=== PATIENT | female | born 1965 | race American Indian/Alaskan Native ===

== ENCOUNTER 2016-11-19 15:41 | Emergency (ER) | payer MEDICARE ==
[2016-11-19 16:40] LABS: Basophils % (Auto) 1.1 % (0.0-1.8); Hematocrit 40.2 % (30.3-42.9); Hemoglobin 13.4 gm/dl (10.1-14.3); Mean Corpuscular HGB Conc 33 % (30-34); Mean Corpuscular Hemoglobin 27 pg (28-32); Mean Corpuscular Volume 81 fl (79-97); Platelet Count 367 K/mm3 (140-440); Red Blood Count 4.96 M/mm3 (3.65-5.03); Red Cell Distribution Width 15.5 % (13.2-15.2); White Blood Count 8.9 K/mm3 (4.5-11.0)
[2016-11-19 17:06] LABS: Alanine Aminotransferase 21 units/L (7-56); Albumin 4.4 g/dL (3.9-5); Albumin/Globulin Ratio 1.2 %; Alkaline Phosphatase 108 units/L (35-129); Anion Gap 16 mmol/L; BUN/Creatinine Ratio 12.22; Blood Urea Nitrogen 11 mg/dL (7-17); Calcium 10.2 mg/dL (8.4-10.2); Carbon Dioxide 29 mmol/L (22-30); Chloride 98.5 mmol/L (98-107); Glucose 79 mg/dL (65-100); Potassium 3.4 mmol/L (3.6-5.0); Sodium 140 mmol/L (137-145)
--- NOTE | 2016-11-19 21:36 | Emergency Department Report ---
HPI - General Chief Complaint: Neuro Symptoms/Deficit Time Seen by Provider: 11/19/16 21:17 - HPI HPI: This is a 51-year-old Afro-[place] female presents to the emergency department from home with complaint of some decreased sensation and/or numbness to some of the fingers on the right hand that began yesterday and has been going since. She also felt like she was having some trouble closing her hand at that time but her symptoms have improved. She does not have true numbness but says it is decreased sensation to the right thumb and index finger compared to the left hand. Patient has previous history of CVA in 2005 left her with right-sided deficits that have since resolved. She denies any headache, slurred speech, vision change or any other neurological deficits. She went to see her PCP who told her to come in to be seen for further evaluation. She has a past medical history of diabetes, hypertension, hyperlipidemia. 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 ED Past Medical Hx - Past Medical History Previous Medical History?: Yes Hx Hypertension: Yes Hx Diabetes: Yes Additional medical history: hyperlipidemia - Surgical History Past Surgical History?: Yes Additional Surgical History: hysterectomy, UFE x2 - Social History Smoking Status: Never Smoker Substance Use Type: None - Medications Home Medications: Home Medications Medication Instructions Recorded Confirmed Last Taken Type AtorvaSTATin [Lipitor] 40 mg PO DAILY 11/19/16 11/19/16 11/19/16 History Escitalopram [Lexapro] 10 mg PO DAILY 11/19/16 11/19/16 11/19/16 History Glipizide/Metformin HCl 1 each PO DAILY 11/19/16 11/19/16 11/19/16 History [glipiZIDE-Metformin 5-500 mg] Lisinopril [Zestril TAB] 40 mg PO DAILY 11/19/16 11/19/16 11/19/16 History Metoprolol [Lopressor TAB] 50 mg PO DAILY 11/19/16 11/19/16 11/19/16 History NIFEdipine XL [Procardia Xl] 30 mg PO QDAY 11/19/16 11/19/16 11/19/16 History Valsartan/Hydrochlorothiazide 1 each PO DAILY 0511/19/16 11/19/16 History [Valsartan-Hctz 160-12.5 mg Tab] traZODone [Desyrel] 100 mg PO 4XD 11/19/16 11/19/16 11/19/16 History ED Review of Systems ROS: Stated complaint: POSS STROKE/SENT BY DOC Other details as noted in HPI Comment: All other systems reviewed and negative Constitutional: denies: chills, fever Eyes: denies: eye pain, eye discharge, vision change ENT: denies: ear pain, throat pain Respiratory: denies: cough, shortness of breath, wheezing Cardiovascular: denies: chest pain, palpitations Gastrointestinal: denies: abdominal pain, nausea, diarrhea Genitourinary: denies: urgency, dysuria, discharge Musculoskeletal: denies: back pain, joint swelling, arthralgia Neurological: numbness, paresthesias. denies: headache Physical Exam - Physical Exam Vital Signs: Vital Signs 11/19/16 15:52 Temperature 98.3 F Pulse Rate 55 L Respiratory 18 Rate Blood Pressure 138/94 O2 Sat by Pulse 100 Oximetry Physical Exam: GENERAL: The patient is well-developed well-nourished. HEENT: Normocephalic. Atraumatic. Extraocular motions are intact. Patient has moist mucous membranes. Pupils equal reactive to light bilaterally. NECK: Supple. Trachea is midline. CHEST/LUNGS: Clear to auscultation. There is no respiratory distress noted. HEART/CARDIOVASCULAR: Regular. There is no tachycardia. There is no gallop rub or murmur. ABDOMEN: Abdomen is soft, nontender. Patient has normal bowel sounds. There is no abdominal distention. SKIN: Skin is warm and dry. NEURO: The patient is awake, alert, and oriented. The patient is cooperative. The patient has no focal neurologic deficits. The patient has normal speech. Cranial nerves 2 through 12 grossly intact. No pronator drift. No dysmetria. MUSCULOSKELETAL: There is no tenderness or deformity. There is no limitation range of motion. There is no evidence of acute injury. Muscle strength 5 out of 5 upper and lower extremities including aws solution architect strength bilaterally. Radial pulses +2 over 4 bilaterally. Cap refill less than 2 seconds. ED Course Vital Signs 11/19/16 15:52 Temperature 98.3 F Pulse Rate 55 L Respiratory 18 Rate Blood Pressure 138/94 O2 Sat by Pulse 100 Oximetry ED Medical Decision Making - Lab Data Result diagrams: 11/19/16 16:28 11/19/16 16:28 - EKG Data -: EKG Interpreted by Me EKG shows normal: sinus rhythm, axis (right axis deviation), intervals, QRS complexes, ST-T waves (T-wave inversions to the lateral leads) Rate: normal - EKG Data When compared to previous EKG there are: previous EKG unavailable Interpretation: other (sinus bradycardia at 54 bpm, right axis deviation, T- wave inversions to the lateral leads) - Radiology Data Radiology results: report reviewed CT of the head without contrast shows probable old left frontal and left parietal strokes. No definite signs of acute disease. - Medical Decision Making This is a 51-year-old female who presents emergency Department with complaint of a 24-hour plus history of some right hand weakness and some decreased sensation to the thumb and index finger of that right hand as well. Patient says she is feeling improved from yesterday. On physical exam the patient denies any difference in sensation between the right and left hands. She has muscle strength 5 out of 5 for upper and lower extremities and this includes her aws solution architect strength. There is no obvious focal, motor or sensory deficits. Patient is a current 0 on the NIH stroke scale. If you include her previous subjective decreased sensation to some of the fingers on the right hand she might be considered a 1 at that time but she says that is improved. CT of the head showed probable old left frontal and left parietal strokes but no acute intracranial process. Her labs are unremarkable and do not show any etiology of the patient's symptoms. Vital signs stable throughout her ED course. However with the patient's history of diabetes, previous stroke, and the fact that she says that there is improvement but still something "weird" about her hand, I suggested the patient be admitted for further evaluation, MRI and possible neurology consultation. However the patient does not want to stay in the hospital at this time. She understands that this could all be signs of a TIA and if so she would be more prone to future stroke. Despite that risk, patient does not want admission. She will be discharged home to follow-up with neurology and will return immediately with any worsening of her symptoms or any acute distress. - Differential Diagnosis TIA, CVA, radiculopathy Critical Care Time: No Critical care attestation.: If time is entered above; I have spent that time in minutes in the direct care of this critically ill patient, excluding procedure time. ED Disposition Clinical Impression: Right hand weakness Disposition: DISCHARGED TO HOME OR SELFCARE Is pt being admited?: No Condition: Stable Instructions: Weakness (ED) Additional Instructions: Please follow-up with your primary care doctor as soon as possible. I referral for some local neurologists for follow-up. Return to the emergency department immediately with any slurred speech, increased numbness, increased weakness or any further strokelike signs or any acute distress. Return to the emergency department immediately if you change your mind about admission for further evaluation. Referrals: PRIMARY CARE, [Primary Care Provider] - HALEY SHARP MD [Staff Physician] - ALEX BERNARD MD [Staff Physician] - [facility] Time of Disposition: 23:21
--- NOTE | 2016-11-19 23:10 | Cat Scan Report ---
FINAL REPORT PROCEDURE: CT head without contrast. TECHNIQUE: Computerized tomography of the head was performed without contrast material. HISTORY: Right hand numbness, concern for cerebral vascular accident. COMPARISON: No prior studies are available for comparison. FINDINGS: The ventricles are normal in size. There are fairly large areas of encephalomalacia involving the left frontal lobe and the left parietal lobe. These areas likely represent previous strokes. The right cerebral hemisphere appears normal. There are no mass lesions. There is no intracranial hemorrhage. There are no signs of acute infarction. An MRI scan with diffusion-weighted imaging is the most sensitive means of detecting an early stroke. The calvarium appears intact. The mastoid air cells and paranasal sinuses are clear as far as visualized. IMPRESSION: Probable old left frontal and left parietal strokes. No definite signs of acute disease.
[2016-11-19] MEDS ORDERED: BABY ASPIRIN PO ONE ×2 (23:11→23:20)
[2016-11-19 23:22] VITALS: BP 144/76
== END 2016-11-19 23:33 | disposition home or self-care (01) ==
LOC: ED 15:41
DX: M62.81 Muscle weakness (generalized) (principal); I10 Essential (primary) hypertension; E11.9 Type 2 diabetes mellitus without complications; E78.00 Pure hypercholesterolemia, unspecified
CPT/HCPCS: 36415; 70450; 80053; 84443; 84484; 85025; 93005; 93010; 99284

== ENCOUNTER 2016-12-11 15:09 | Outpatient (CLI) | payer MEDICARE | END 2016-12-11 15:10 | disposition home or self-care (01) | LOC: MRI 15:09 | PROVIDERS: ATTEND Specialist | DX: I63.30 Cerebral infarction due to thrombosis of unspecified cerebral artery (principal) | CPT/HCPCS: 70544; 70547; 70551 ==

== ENCOUNTER 2019-06-14 20:48 | Inpatient (IN) | payer BC, MEDICARE ==
--- NOTE | 2019-06-14 20:52 | Emergency Department Report ---
ED Neuro Deficit HPI - General Chief Complaint: Neuro Symptoms/Deficit Stated Complaint: POSS CVA Time Seen by Provider: 06/14/19 20:50 Source: patient, family, EMS (verbal report received from emergency medical services. EMS documentation not available at time of chart dictation ), RN notes reviewed, old records reviewed Mode of arrival: Stretcher Limitations: Physical Limitation - History of Present Illness Initial Comments: Primary care Dr.: Dr. Gregg This is a 53-year-old female. The patient has a history of MRI confirmed stroke, diabetes, high cholesterol, in 2017, found to have 50% left-sided carotid stenosis. She is brought to the hospital by emergency medical services as a possible code stroke. They report normal Accu-Chek in the field. The patient has a complaint of painless right arm weakness, slurred speech and facial droop. The patient is not sure what time her symptoms started. Sister's at the bedside, and she is not sure what time the patient's symptoms started. At first they thought her symptoms started at 7:30 PM, then they backtrack and thought that they may have started at 6:30 PM, and then backtracked further and felt that her last known well time was at 2:00 PM. However, neither the patient or her sister are absolutely sure of her last known well time. The patient denies physical pain. In the emergency room, she was found to have an Accu-Chek of 67. She was given dextrose and this improved her symptoms. -: hour(s) Location: right face, dysarthria, right arm Presenting Symptoms: Present: Weak/Paralyzed One Side, Unable to Speak Clearly History of same: Yes Place: home Severity: moderate Quality: improving Improves With: none Worsens With: none On Anticoagulants: Yes Context: other - Related Data Home Medications: Home Medications Medication Instructions Recorded Confirmed Last Taken AtorvaSTATin [Lipitor] 40 mg PO DAILY 11/19/16 06/15/19 1 Day Ago ~06/14/19 Escitalopram [Lexapro] 10 mg PO DAILY 11/19/16 06/15/19 1 Day Ago ~06/14/19 Glipizide/Metformin HCl 2 tab PO BID 11/19/16 06/15/19 1 Day Ago [glipiZIDE-Metformin 5-500 mg] ~06/14/19 Metoprolol [Lopressor TAB] 50 mg PO DAILY 11/19/16 06/15/19 1 Day Ago ~06/14/19 NIFEdipine XL [Procardia Xl] 30 mg PO QDAY 11/19/16 06/15/19 1 Day Ago ~06/14/19 traZODone [Desyrel] 100 mg PO 4XD 11/19/16 06/15/19 11/19/16 Hydrochlorothiazide 12.5 mg PO DAILY 06/14/19 06/15/19 1 Day Ago ~06/14/19 Allergies/Adverse Reactions: Allergies Allergy/AdvReac Type Severity Reaction Status Date / Time No Known Allergies Allergy Verified 06/14/19 21:33 ED Review of Systems ROS: Stated complaint: POSS CVA Other details as noted in HPI Constitutional: see HPI Eyes: as per HPI ENT: as per HPI Respiratory: see HPI Cardiovascular: as per HPI Endocrine: see HPI Genitourinary: as per HPI Musculoskeletal: as per HPI Skin: as per HPI Neurological: as per HPI Psychiatric: as per HPI Hematological/Lymphatic: as per HPI ED Past Medical Hx - Past Medical History Hx Hypertension: Yes Hx Diabetes: Yes Additional medical history: hyperlipidemia - Surgical History Additional Surgical History: hysterectomy, UFE x2 - Social History Smoking Status: Never Smoker Substance Use Type: None - Medications Home Medications: Home Medications Medication Instructions Recorded Confirmed Last Taken Type AtorvaSTATin [Lipitor] 40 mg PO DAILY 11/19/16 06/15/19 1 Day Ago History ~06/14/19 Escitalopram [Lexapro] 10 mg PO DAILY 11/19/16 06/15/19 1 Day Ago History ~06/14/19 Glipizide/Metformin HCl 2 tab PO BID 11/19/16 06/15/19 1 Day Ago History [glipiZIDE-Metformin 5-500 mg] ~06/14/19 Metoprolol [Lopressor TAB] 50 mg PO DAILY 11/19/16 06/15/19 1 Day Ago History ~06/14/19 NIFEdipine XL [Procardia Xl] 30 mg PO QDAY 11/19/16 06/15/19 1 Day Ago History ~06/14/19 traZODone [Desyrel] 100 mg PO 4XD 11/19/16 06/15/19 11/19/16 History Hydrochlorothiazide 12.5 mg PO DAILY 06/14/19 06/15/19 1 Day Ago History ~06/14/19 ED Neuro Physical Exam - General Limitations: Physical Limitation General appearance: alert, anxious Suspected Stroke: Yes - Head Head exam: Present: atraumatic, normocephalic - Eye Eye exam: Present: normal appearance, EOMI. Absent: nystagmus - ENT ENT exam: Present: normal exam, normal orophraynx, mucous membranes moist, normal external ear exam, other (there is initially a right-sided facial droop) - Neck Neck exam: Present: normal inspection, full ROM. Absent: tenderness, meningismus - Respiratory Respiratory exam: Present: normal lung sounds bilaterally. Absent: respiratory distress - Cardiovascular Cardiovascular Exam: Present: regular rate, normal rhythm, normal heart sounds. Absent: bradycardia, tachycardia, irregular rhythm, systolic murmur, diastolic murmur, rubs, gallop - GI/Abdominal GI/Abdominal exam: Present: soft. Absent: distended, tenderness, guarding, rebound, rigid, pulsatile mass - Extremities Exam Extremities exam: Present: normal inspection, full ROM, other (2+ pulses noted in the bilateral upper, lower extremities. There is no long bone tenderness. Musculoskeletal compartments are soft. The pelvis is stable.). Absent: calf tenderness - Back Exam Back exam: Present: normal inspection, full ROM. Absent: tenderness, CVA tenderness (R), paraspinal tenderness, vertebral tenderness - Neurological Exam Neurological exam: Present: alert, oriented X3, motor sensory deficit, other (there is right-sided facial droop. There is 4 out of 5 strength right upper extremity) - NIHSS Assessment Interval: Baseline 1a. Level of Consciousness: alert/keenly responsive 1b. LOC Questions: answers both correctly 1c. LOC Commands: performs tasks correctly 2. Best Gaze: normal 3. Visual: no visual loss 4. Facial Palsy: partial paralysis 5b. Motor Arm Right: some gravity effort 5a. Motor Arm Left: no drift 6a. Motor Leg Left: no drift 6b. Motor Leg Right: no drift 7. Limb Ataxia: absent 8. Sensory: normal 9. Best Language: no aphasia 10. Dysarthria: normal 11. Extinction/Inattention: no abnormality Total Score: 4 Stroke Severity: Minor Stroke - Psychiatric Psychiatric exam: Present: anxious - Skin Skin exam: Present: warm, dry, intact, normal color. Absent: rash ED Course Vital Signs 06/14/19 06/14/19 06/14/19 20:50 21:29 21:30 Temperature 98.7 F Pulse Rate 68 59 L Pulse Rate [ From Monitor] Pulse Rate [ Left Radial] Pulse Rate [ Right Radial] Respiratory 15 13 13 Rate Blood Pressure 173/88 Blood Pressure 173/88 161/96 [Right] O2 Sat by Pulse 99 99 99 Oximetry 06/14/19 06/14/19 06/14/19 21:50 22:00 23:57 Temperature Pulse Rate 58 L 60 69 Pulse Rate [ From Monitor] Pulse Rate [ Left Radial] Pulse Rate [ Right Radial] Respiratory 13 20 Rate Blood Pressure Blood Pressure 148/97 166/113 [Right] O2 Sat by Pulse 100 100 Oximetry 06/15/19 06/15/19 00:20 00:41 Temperature Pulse Rate 62 Pulse Rate [ 66 From Monitor] Pulse Rate [ 62 Left Radial] Pulse Rate [ 62 Right Radial] Respiratory 13 18 Rate Blood Pressure Blood Pressure 154/98 [Right] O2 Sat by Pulse 100 97 Oximetry - Reevaluation(s) Reevaluation #1: 06/14/19 22:25 Differential diagnosis, including not limited to: Conversion disorder, stroke, TIA, seizure, urinary tract infection, hypoglycemia Assessment and plan: 53-year-old female with rapidly improving neurologic deficits, with an unclear last known well time. Furthermore, the patient endorses that she consumed alcohol earlier on today, and was found to have hypoglycemia with an Accu-Chek of 67 initially. After treatment with dextrose, her neurologic symptoms improved. Current NIH score is less than 2. She is not a TPA candidate as her last known well time is not explicitly known. In additi on, we had an extensive discussion with the patient and her family member, describing risks, benefits and alternatives to TPA. Both patient and her family member do not want to have tPA. They are amenable to CT angiogram and admission. Patient found to be hypokalemic, hypomagnesemic. Both of these will be repleted and addressed. Reevaluation #2: 06/14/19 23:52 cta head negative for acute disease or large vessel occlusion, cta neck negative Dr [facility]ers [facility] physician to admit - Lab Data Result diagrams: 06/14/19 21:11 06/14/19 21:11 Lab Results 11/27/19 11/27/19 11/27/19 Range/Units 20:50 20:50 21:10 WBC (4.5-11.0) K/mm3 RBC (3.65-5.03) M/mm3 Hgb (10.1-14.3) gm/dl Hct (30.3-42.9) % MCV (79-97) fl MCH (28-32) pg MCHC (30-34) % RDW (13.2-15.2) % Plt Count (140-440) K/mm3 Lymph % (Auto) (13.4-35.0) % Blount % (Auto) (0.0-7.3) % Eos % (Auto) (0.0-4.3) % Baso % (Auto) (0.0-1.8) % Lymph # (1.2-5.4) K/mm3 Blount # (0.0-0.8) K/mm3 Eos # (0.0-0.4) K/mm3 Baso # (0.0-0.1) K/mm3 Seg Neutrophils % (40.0-70.0) % Seg Neutrophils # (1.8-7.7) K/mm3 PT (12.2-14.9) Sec. INR (0.87-1.13) APTT (24.2-36.6) Sec. Thrombin Time (15.1-19.6) Sec. Sodium (137-145) mmol/L Potassium (3.6-5.0) mmol/L Chloride (98-107) mmol/L Carbon Dioxide (22-30) mmol/L Anion Gap mmol/L BUN (7-17) mg/dL Creatinine (0.7-1.2) mg/dL Estimated GFR ml/min BUN/Creatinine Ratio % Glucose (65-100) mg/dL POC Glucose 67 L (70-105) Calcium (8.4-10.2) mg/dL Magnesium (1.7-2.3) mg/dL Total Creatine Kinase (30-135) units/L Troponin T (0.00-0.029) ng/mL Urine Color Colorless (Yellow) Urine Turbidity Clear (Clear) Urine pH 7.0 (5.0-7.0) Ur Specific [place] 1.006 (1.003-1.030) Urine Protein <15 mg/dl (Negative) mg/dL Urine Glucose (UA) 150 (Negative) mg/dL Urine Ketones Neg (Negative) mg/dL Urine Blood Mod (Negative) Urine Nitrite Neg (Negative) Urine Bilirubin Neg (Negative) Urine Urobilinogen < 2.0 (<2.0) mg/dL Ur Leukocyte Esterase Neg (Negative) Urine WBC (Auto) 4.0 (0.0-6.0) /HPF Urine RBC (Auto) 7.0 (0.0-6.0) /HPF Urine Bacteria (Auto) 1+ (Negative) /HPF Salicylates (2.8-20.0) mg/dL Urine Opiates Screen Presumptive negative Urine Methadone Screen Presumptive negative Acetaminophen (10.0-30.0) ug/mL Ur Barbiturates Screen Presumptive negative Ur Phencyclidine Scrn Presumptive negative Ur Amphetamines Screen Presumptive negative U Benzodiazepines Scrn Presumptive negative Urine Cocaine Screen Presumptive negative U Marijuana (THC) Screen Presumptive positive Drugs of Abuse Note Disclamer Plasma/Serum Alcohol (0-0.07) % 06/14/19 06/14/19 06/14/19 Range/Units 21:11 21:11 21:11 WBC 12.0 H (4.5-11.0) K/mm3 RBC 4.28 (3.65-5.03) M/mm3 Hgb 11.9 (10.1-14.3) gm/dl Hct 35.9 (30.3-42.9) % MCV 84 (79-97) fl MCH 28 (28-32) pg MCHC 33 (30-34) % RDW 13.8 (13.2-15.2) % Plt Count 320 (140-440) K/mm3 Lymph % (Auto) 29.3 (13.4-35.0) % Blount % (Auto) 6.2 (0.0-7.3) % Eos % (Auto) 1.4 (0.0-4.3) % Baso % (Auto) 1.2 (0.0-1.8) % Lymph # 3.5 (1.2-5.4) K/mm3 Blount # 0.7 (0.0-0.8) K/mm3 Eos # 0.2 (0.0-0.4) K/mm3 Baso # 0.1 (0.0-0.1) K/mm3 Seg Neutrophils % 61.9 (40.0-70.0) % Seg Neutrophils # 7.4 (1.8-7.7) K/mm3 PT 13.0 (12.2-14.9) Sec. INR 0.99 (0.87-1.13) APTT 29.1 (24.2-36.6) Sec. Thrombin Time (15.1-19.6) Sec. Sodium 140 (137-145) mmol/L Potassium 3.0 L (3.6-5.0) mmol/L Chloride 99.2 (98-107) mmol/L Carbon Dioxide 24 (22-30) mmol/L Anion Gap 20 mmol/L BUN 17 (7-17) mg/dL Creatinine 0.9 (0.7-1.2) mg/dL Estimated GFR > 60 ml/min BUN/Creatinine Ratio 19 % Glucose 232 H (65-100) mg/dL POC Glucose (70-105) Calcium 9.6 (8.4-10.2) mg/dL Magnesium (1.7-2.3) mg/dL Total Creatine Kinase (30-135) units/L Troponin T < 0.010 (0.00-0.029) ng/mL Urine Color (Yellow) Urine Turbidity (Clear) Urine pH (5.0-7.0) Ur Specific [place] (1.003-1.030) Urine Protein (Negative) mg/dL Urine Glucose (UA) (Negative) mg/dL Urine Ketones (Negative) mg/dL Urine Blood (Negative) Urine Nitrite (Negative) Urine Bilirubin (Negative) Urine Urobilinogen (<2.0) mg/dL Ur Leukocyte Esterase (Negative) Urine WBC (Auto) (0.0-6.0) /HPF Urine RBC (Auto) (0.0-6.0) /HPF Urine Bacteria (Auto) (Negative) /HPF Salicylates (2.8-20.0) mg/dL Urine Opiates Screen Urine Methadone Screen Acetaminophen (10.0-30.0) ug/mL Ur Barbiturates Screen Ur Phencyclidine Scrn Ur Amphetamines Screen U Benzodiazepines Scrn Urine Cocaine Screen U Marijuana (THC) Screen Drugs of Abuse Note Plasma/Serum Alcohol (0-0.07) % 06/14/19 06/14/19 06/14/19 Range/Units 21:11 21:11 21:45 WBC (4.5-11.0) K/mm3 RBC (3.65-5.03) M/mm3 Hgb (10.1-14.3) gm/dl Hct (30.3-42.9) % MCV (79-97) fl MCH (28-32) pg MCHC (30-34) % RDW (13.2-15.2) % Plt Count (140-440) K/mm3 Lymph % (Auto) (13.4-35.0) % Blount % (Auto) (0.0-7.3) % Eos % (Auto) (0.0-4.3) % Baso % (Auto) (0.0-1.8) % Lymph # (1.2-5.4) K/mm3 Blount # (0.0-0.8) K/mm3 Eos # (0.0-0.4) K/mm3 Baso # (0.0-0.1) K/mm3 Seg Neutrophils % (40.0-70.0) % Seg Neutrophils # (1.8-7.7) K/mm3 PT (12.2-14.9) Sec. INR (0.87-1.13) APTT (24.2-36.6) Sec. Thrombin Time 16.2 (15.1-19.6) Sec. Sodium (137-145) mmol/L Potassium (3.6-5.0) mmol/L Chloride (98-107) mmol/L Carbon Dioxide (22-30) mmol/L Anion Gap mmol/L BUN (7-17) mg/dL Creatinine (0.7-1.2) mg/dL Estimated GFR ml/min BUN/Creatinine Ratio % Glucose (65-100) mg/dL POC Glucose (70-105) Calcium (8.4-10.2) mg/dL Magnesium 1.60 L (1.7-2.3) mg/dL Total Creatine Kinase 188 H (30-135) units/L Troponin T (0.00-0.029) ng/mL Urine Color (Yellow) Urine Turbidity (Clear) Urine pH (5.0-7.0) Ur Specific [place] (1.003-1.030) Urine Protein (Negative) mg/dL Urine Glucose (UA) (Negative) mg/dL Urine Ketones (Negative) mg/dL Urine Blood (Negative) Urine Nitrite (Negative) Urine Bilirubin (Negative) Urine Urobilinogen (<2.0) mg/dL Ur Leukocyte Esterase (Negative) Urine WBC (Auto) (0.0-6.0) /HPF Urine RBC (Auto) (0.0-6.0) /HPF Urine Bacteria (Auto) (Negative) /HPF Salicylates 2.0 L (2.8-20.0) mg/dL Urine Opiates Screen Urine Methadone Screen Acetaminophen (10.0-30.0) ug/mL Ur Barbiturates Screen Ur Phencyclidine Scrn Ur Amphetamines Screen U Benzodiazepines Scrn Urine Cocaine Screen U Marijuana (THC) Screen Drugs of Abuse Note Plasma/Serum Alcohol (0-0.07) % 06/14/19 06/14/19 06/14/19 Range/Units 21:45 21:45 22:03 WBC (4.5-11.0) K/mm3 RBC (3.65-5.03) M/mm3 Hgb (10.1-14.3) gm/dl Hct (30.3-42.9) % MCV (79-97) fl MCH (28-32) pg MCHC (30-34) % RDW (13.2-15.2) % Plt Count (140-440) K/mm3 Lymph % (Auto) (13.4-35.0) % Blount % (Auto) (0.0-7.3) % Eos % (Auto) (0.0-4.3) % Baso % (Auto) (0.0-1.8) % Lymph # (1.2-5.4) K/mm3 [place]ount # (0.0-0.8) K/mm3 Eos # (0.0-0.4) K/mm3 Baso # (0.0-0.1) K/mm3 Seg Neutrophils % (40.0-70.0) % Seg Neutrophils # (1.8-7.7) K/mm3 PT (12.2-14.9) Sec. INR (0.87-1.13) APTT (24.2-36.6) Sec. Thrombin Time (15.1-19.6) Sec. Sodium (137-145) mmol/L Potassium (3.6-5.0) mmol/L Chloride (98-107) mmol/L Carbon Dioxide (22-30) mmol/L Anion Gap mmol/L BUN (7-17) mg/dL Creatinine (0.7-1.2) mg/dL Estimated GFR ml/min BUN/Creatinine Ratio % Glucose (65-100) mg/dL POC Glucose 101 (70-105) Calcium (8.4-10.2) mg/dL Magnesium (1.7-2.3) mg/dL Total Creatine Kinase (30-135) units/L Troponin T (0.00-0.029) ng/mL Urine Color (Yellow) Urine Turbidity (Clear) Urine pH (5.0-7.0) Ur Specific [place] (1.003-1.030) Urine Protein (Negative) mg/dL Urine Glucose (UA) (Negative) mg/dL Urine Ketones (Negative) mg/dL Urine Blood (Negative) Urine Nitrite (Negative) Urine Bilirubin (Negative) Urine Urobilinogen (<2.0) mg/dL Ur Leukocyte Esterase (Negative) Urine WBC (Auto) (0.0-6.0) /HPF Urine RBC (Auto) (0.0-6.0) /HPF Urine Bacteria (Auto) (Negative) /HPF Salicylates (2.8-20.0) mg/dL Urine Opiates Screen Urine Methadone Screen Acetaminophen < 5.0 L (10.0-30.0) ug/mL Ur Barbiturates Screen Ur Phencyclidine Scrn Ur Amphetamines Screen U Benzodiazepines Scrn Urine Cocaine Screen U Marijuana (THC) Screen Drugs of Abuse Note Plasma/Serum Alcohol < 0.01 (0-0.07) % - EKG Data -: EKG Interpreted by Nm EKG shows normal: sinus rhythm Rate: normal 06/14/19 22:24 The EKG shows a sinus bradycardia, there is a borderline rightward axis deviation, there is motion artifact, nonspecific T-wave abnormality, there is no endorsement of chest pain, the EKG is abnormal, it is not consistent with STEMI. It appears to be unchanged from prior EKG October 2016. Q waves noted in lead 3. Nonspecific T-wave abnormalities noted. - Radiology Data Radiology results: report reviewed, image reviewed Noncontrast CT scan of the brain is negative for acute findings. Chronic findings noted. No bleeding is noted. Print Report Referring Physician: GRAZYNA AMADOR Patient Name: BEBA MARTE Date of : 1965 Sex: Female Report Date: 2019-06-14 Report Status: Finalized Findings [facility] [address] [place] [address] Cat Scan Report Signed Patient: BEBA MARTE MR#: [id number] : 1965 Acct:[id number] Age/Sex: 53 / F ADM Date: 06/14/19 Loc: ED Attending Dr: Ordering Physician: GRAZYNA AMADOR MD Date of Service: 06/14/19 Procedure(s): CT head/brain wo con Accession Number(s): [id number] cc: GRAZYNA AMADOR MD CT head/brain wo con INDICATION / CLINICAL INFORMATION: 53 years Female; neuro deficits <6hrs or sx present upon awakening. TECHNIQUE: Routine CT head without contrast. All CT scans at this location are performed using CT dose reduction for ALARA by means of automated exposure control. COMPARISON: 11/19/2016 FINDINGS: BRAIN / INTRACRANIAL CONTENTS: Old, large MCA territorial infarct seen on the left which does not appear to be significantly changed from prior exam. It might be difficult to evaluate for small, luh-infarct areas of ischemia without diffusion imaging by MRI. Otherwise, no acute hemorrhage, mass effect, midline shift, hydrocephalus, or acute, large territorial infarct. Mild cerebral atrophy. There are mild areas of decreased attenuation in the white matter of the cerebral hemispheres. These are nonspecific findings and may be related to microangiopathy (hypertension, diabetes, atherosclerosis), given the patient's age. It might be difficult to evaluate for small areas of ischemia without diffusion imaging by MRI. CRANIOCERVICAL JUNCTION: No significant abnormality. ORBITS: No significant abnormality of visualized orbits. SINUSES / MASTOIDS: No significant abnormality the visualized paranasal sinuses or mastoid air cells. ADDITIONAL FINDINGS: Prominent soft tissues seen in the roof the nasopharynx, presumably related to reactive adenoidal tissue. No significant atherosclerotic disease appreciated. IMPRESSION: 1. No focal mass, hemorrhage, hydrocephalus, or acute, large territorial infarct. 2. Old left MCA territorial infarct is described above with no significant appreciable change from prior. Diffusion imaging may be helpful in evaluating for small, luh-infarct areas of ischemia, if clinically warranted. This exam was performed as part of a code stroke protocol. The exam was completed on 06/14/2019 8:05 PM. The exam was reviewed at 8:[address] Amador was notified at 8:22 PM. Signer Name: Montrell Peterson MD, III Signed: 06/14/2019 9:21 PM Workstation Name: [id number] Transcribed By: HR Dictated By: Montrell Peterson MD Electronically Authenticated By: Montrell Peterson MD Signed Date/Time: 06/14/192120 CT angio head INDICATION / CLINICAL INFORMATION: 53 years Female; cva known occlusion. TECHNIQUE: Thin cut axial images obtained through the head during IV bolus contrast administration. Sagittal, coronal, and 3 plane MIP reconstructions performed by the technologist. NASCET type criteria used evaluate stenoses. Automated exposure control utilized for radiation reduction purposes. COMPARISON: Prior MRA - 12/11/2016 FINDINGS: INTERNAL CAROTID ARTERIES: No significant narrowing appreciated. VERTEBROBASILAR SYSTEM: No significant narrowing appreciated. DISTAL BRANCHES: Distal branches of the anterior, middle, and posterior cerebral arteries are fairly symmetric in appearance and number. However, there are some branches in the left MCA territory which are not well visualized, consistent with patient's history of old, fairly large branch MCA infarct. 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 The right P1 segment is also mildly hypoplastic, when compared with the left. ANEURYSM: None identified. ADDITIONAL FINDINGS: Remainder of the surrounding soft tissues are grossly normal. IMPRESSION: No large branch occlusion appreciated. Signer Name: Montrell Peterson MD, III Signed: 06/14/2019 10:33 PM Workstation Name: [id number] - Core Measures Measure Exclusions: not indicated - Thrombolytic Inclusion/Exclusion Thrombolytic Exclusion Criteria: Onset of Symptoms Unknown Thrombolytic Contraindications: Rapidily Improving s/s Critical care attestation.: If time is entered above; I have spent that time in minutes in the direct care of this critically ill patient, excluding procedure time. ED Disposition Clinical Impression: Hypoglycemia, Hypokalemia, Hypomagnesemia Stroke (cerebrum) Qualifiers: CVA mechanism: unspecified Qualified Code(s): I63.9 - Cerebral infarction, unspecified Disposition: DC-09 OP ADMIT IP TO THIS HOSP Is pt being admited?: Yes Does the pt Need Aspirin: Yes Condition: Stable - Assessment Assessment Interval: Baseline - Level of Consciousness 1a. Level of Consciousness: alert/keenly responsive - LOC Questions 1b. LOC Questions: answers both correctly - LOC Command 1c. LOC Commands: performs tasks correctly - Best Gaze 2. Best Gaze: normal - Visual 3. Visual: no visual loss - Facial Palsy 4. Facial Palsy: minor paralysis - Motor Arm 5a. Motor Arm Left: no drift 5b. Motor Arm Right: drift - Motor Leg 6a. Motor Leg Left: no drift 6b. Motor Leg Right: no drift - Limb Ataxia 7. Limb Ataxia: absent - Sensory 8. Sensory: normal - Best Language 9. Best Language: no aphasia - Dysarthria 10. Dysarthria: normal - Extinction and Inattention 11. Extinction/Inattention: no abnormality - Scoring Total Score: 2 Stroke Severity: Minor Stroke
[2019-06-14] MEDS ORDERED: DEXTROSE 50% IN WATER (25GM) 50 ML SYRINGE IV PRN (21:02)
[2019-06-14] MEDS ORDERED: DEXTROSE 50% IN WATER (25GM) 50 ML SYRINGE IV ONE ×2 (21:02→21:03)
[2019-06-14 21:19] LABS: Basophils # (Auto) 0.1 K/mm3 (0.0-0.1); Basophils % (Auto) 1.2 % (0.0-1.8); Eosinophils # (Auto) 0.2 K/mm3 (0.0-0.4); Eosinophils % (Auto) 1.4 % (0.0-4.3); Hematocrit 35.9 % (30.3-42.9); Hemoglobin 11.9 gm/dl (10.1-14.3); Lymphocytes # (Auto) 3.5 K/mm3 (1.2-5.4); Lymphocytes % (Auto) 29.3 % (13.4-35.0); Mean Corpuscular HGB Conc 33 % (30-34); Mean Corpuscular Volume 84 fl (79-97); Monocytes # (Auto) 0.7 K/mm3 (0.0-0.8); Monocytes % (Auto) 6.2 % (0.0-7.3); Platelet Count 320 K/mm3 (140-440); Red Blood Count 4.28 M/mm3 (3.65-5.03); Red Cell Distribution Width 13.8 % (13.2-15.2)
--- NOTE | 2019-06-14 21:26 | Cat Scan Report ---
CT head/brain wo con INDICATION / CLINICAL INFORMATION: 53 years Female; neuro deficits <6hrs or sx present upon awakening. TECHNIQUE: Routine CT head without contrast. All CT scans at this location are performed using CT dos e reduction for ALARA by means of automated exposure control. COMPARISON: 11/19/2016 FINDINGS: BRAIN / INTRACRANIAL CONTENTS: Old, large MCA territorial infarct seen on the left which does not cari ear to be significantly changed from prior exam. It might be difficult to evaluate for small, luh-in farct areas of ischemia without diffusion imaging by MRI. Otherwise, no acute hemorrhage, mass effect, midline shift, hydrocephalus, or acute, large territori al infarct. Mild cerebral atrophy. There are mild areas of decreased attenuation in the white matter of the cerebral hemispheres. These are nonspecific findings and may be related to microangiopathy (hypertension, diabetes, atheroscleros is), given the patient's age. It might be difficult to evaluate for small areas of ischemia without d iffusion imaging by MRI. CRANIOCERVICAL JUNCTION: No significant abnormality. ORBITS: No significant abnormality of visualized orbits. SINUSES / MASTOIDS: No significant abnormality the visualized paranasal sinuses or mastoid air cells. ADDITIONAL FINDINGS: Prominent soft tissues seen in the roof the nasopharynx, presumably related to r eactive adenoidal tissue. No significant atherosclerotic disease appreciated. IMPRESSION: 1. No focal mass, hemorrhage, hydrocephalus, or acute, large territorial infarct. 2. Old left MCA territorial infarct is described above with no significant appreciable change from pr ior. Diffusion imaging may be helpful in evaluating for small, luh-infarct areas of ischemia, if cli nically warranted. This exam was performed as part of a code stroke protocol. The exam was completed on 06/14/2019 8:05 PM. The exam was reviewed at 8:[address] Amador was notified at 8:22 PM. Signer Name: Montrell Peterson MD, III Signed: 06/14/2019 9:21 PM Workstation Name: [id number]
[2019-06-14 21:29] LABS: INR 0.99 (0.87-1.13)
[2019-06-14 21:30] LABS: Partial Thromboplastin Time 29.1 Sec. (24.2-36.6)
[2019-06-14 21:32] LABS: BUN/Creatinine Ratio 19; Blood Urea Nitrogen 17 mg/dL (7-17); Calcium 9.6 mg/dL (8.4-10.2); Hemolysis Index 12
[2019-06-14 21:49] LABS: Bacteria,Urine 1+ /HPF (Negative); Bilirubin,Urine NEG (Negative); Blood,Urine MOD (Negative); Color,Urine Colorless (Yellow); Protein,Urine <15 mg/dL mg/dL (Negative); Urobilinogen,Urine < 2.0 mg/dL (<2.0)
[2019-06-14 21:56] LABS: Amphetamine Screen,Urine PRESUMPTIVE NEGATIVE; Benzodiazepines Screen,Urine PRESUMPTIVE NEGATIVE; Cocaine Screen,Urine PRESUMPTIVE NEGATIVE; Methadone Screen,Urine PRESUMPTIVE NEGATIVE; Opiate Screen,Urine PRESUMPTIVE NEGATIVE
[2019-06-14 22:12] LABS: Cannabinoid Screen,Urine PRESUMPTIVE POSITIVE
--- NOTE | 2019-06-14 22:12 | Emergency Department Report ---
ED Neuro Deficit HPI - General Chief Complaint: Neuro Symptoms/Deficit Stated Complaint: POSS CVA Time Seen by Provider: 06/14/19 20:50 Source: patient, EMS Mode of arrival: Stretcher Limitations: No Limitations - History of Present Illness Initial Comments: [facility] Tele[facility]urology [facility] Date of Service: 06/14/2019 20:39:13 Impression: RO Acute Ischemic Stroke Comments: The patient presents with prior history of left MCA stroke 2017 and with little to no residual deficits, and now with new symptoms of right facial and right upper limb weakness. The right upper limb weakness appears to be improving and at the current time, there is no definitive UE drift but there is finger extension weakness and mild dysarthria. She is able to name all objects and repeat well. After much questioning the patient and family , with both myself and ED physician, the last seen normal time is not clear. This together with mild nondisabling deficits preclude tPA, and therefore she is not candidate for tPA thrombolytics. Potential risks and benefits were explained to patient and family as well and both also declined the treatment. There is no clear clinical indication of large vessel occlusive disease. Patient is to be admitted for further stroke workup. Metrics: Last Known Well: Unknown [employer] Notification Time: 06/14/2019 20:38:13 Arrival Time: 06/14/2019 20:45:00 Stamp Time: 06/14/2019 20:39:13 Time First Login Attempt: 06/14/2019 20:43:00 Video Start Time: 06/14/2019 20:43:00 Symptoms: right facial weakness and right upper limb weakness. NIHSS Start Assessment Time: 06/14/2019 20:55:00 Patient is not a candidate for tPA. Patient was not deemed candidate for tPA thrombolytics because of LSN is not clear as per history obtained from patient and family at bedside.. Video End Time: 06/14/2019 21:09:00 CT head showed no acute hemorrhage or acute core infarct. Radiologist was not called back for review of advanced imaging because Reviewed. ER Physician notified of the decision on thrombolytics management on 06/14/2019 21:09:00 Our recommendations are outlined below. Recommendations: Activate Stroke Protocol Admission/Order Set Stroke/Telemetry Floor Neuro Checks Bedside Swallow Eval DVT Prophylaxis IV Fluids, Normal Saline Head of Bed Below 30 Degrees Euglycemia and Avoid Hyperthermia (PRN Acetaminophen) Antiplatelet Therapy Recommended Initiate Aspirin 325 MG Daily Recommended Scan: MRI Head Without Contrast Carotid Dopplers Echocardiogram - Transthoracic Echocardiogram Lipid Panel to Be Obtained, if Not Done in the Last Three Months Therapies: Physical Therapy, Occupational Therapy, Speech Therapy Assessment When Applicable Dysphaghia Screen: Swallow Evaluation, Bedside NPO Until Swallow Evaluation Disposition: Follow up with Teleneurology Follow up Sign Out: Discussed with Emergency Department Provider History of Present Illness: Patient is a 53 year old Female. Patient was brought by EMS for symptoms of right facial weakness and right upper limb weakness. LSN or time of onset is not clear. There is history of old stroke, 2017- reportedly left MCA stroke with MRA done at that time negative. MRA neck 50% Left ICA. Patient has had no residual deficit from that stroke as per family and patient herself. CT head showed no acute hemorrhage or acute core infarct. Examination: BP(-), Pulse(-), Blood Glucose(-) 1A: Level of Consciousness - Alert; keenly responsive + 0 1B: Ask Month and Age - Both Questions Right + 0 1C: Blink Eyes & Squeeze Hands - Performs Both Tasks + 0 2: Test Horizontal Extraocular Movements - Normal + 0 3: Test Visual [place] - No Visual Loss + 0 4: Test Facial Palsy (Use Grimace if Obtunded) - Minor paralysis (flat jennifer olabial fold, smile asymetry) + 1 5A: Test Left Arm Motor Drift - No Drift for 10 Seconds + 0 5B: Test Right Arm Motor Drift - No Drift for 10 Seconds + 0 6A: Test Left Leg Motor Drift - No Drift for 5 Seconds + 0 6B: Test Right Leg Motor Drift - No Drift for 5 Seconds + 0 7: Test Limb Ataxia (FNF/Heel-[place]) - No Ataxia + 0 8: Test Sensation - Normal; No sensory loss + 0 9: Test Language/Aphasia - Normal; No aphasia + 0 - able to name and repeat, read- albeit fluency mildly affected. 10: Test Dysarthria - Mild-Moderate Dysarthria: Slurring but can be understood + 1 11: Test Extinction/Inattention - No abnormality + 0 NIHSS Score: 2 Patient was informed the Neurology Consult would happen via TeleHealth consult by way of interactive audio and video telecommunications and consented to rece iving care in this manner. Due to the immediate potential for life-threatening deterioration due to underlying acute neurologic illness, I spent 35 minutes providing critical care. This time includes time for face to face visit via telemedicine, review of medical records, imaging studies and discussion of findings with providers, the patient and/or family. Dr Frank Valverde [facility] Case [id number] - Related Data Home Medications: Home Medications Medication Instructions Recorded Confirmed Last Taken AtorvaSTATin [Lipitor] 40 mg PO DAILY 11/19/16 11/19/16 11/19/16 Escitalopram [Lexapro] 10 mg PO DAILY 11/19/16 11/19/16 11/19/16 Glipizide/Metformin HCl 1 each PO DAILY 11/19/16 11/19/16 11/19/16 [glipiZIDE-Metformin 5-500 mg] Lisinopril [Zestril TAB] 40 mg PO DAILY 11/19/16 11/19/16 11/19/16 Metoprolol [Lopressor TAB] 50 mg PO DAILY 11/19/16 11/19/16 11/19/16 NIFEdipine XL [Procardia Xl] 30 mg PO QDAY 11/19/16 11/19/16 11/19/16 Valsartan/Hydrochlorothiazide 1 each PO DAILY 11/19/16 11/19/16 11/19/16 [Valsartan-Hctz 160-12.5 mg Tab] traZODone [Desyrel] 100 mg PO 4XD 11/19/16 11/19/16 11/19/16 Allergies/Adverse Reactions: Allergies Allergy/AdvReac Type Severity Reaction Status Date / Time No Known Allergies Allergy Verified 06/14/19 21:33 ED Review of Systems ROS: Stated complaint: POSS CVA Other details as noted in HPI ED Past Medical Hx - Past Medical History Previous Medical History?: Yes Hx Hypertension: Yes Hx CVA: Yes Hx Diabetes: Yes Additional medical history: hyperlipidemia - Surgical History Additional Surgical History: hysterectomy, UFE x2 - Social History Smoking Status: Never Smoker Substance Use Type: None - Medications Home Medications: Home Medications Medication Instructions Recorded Confirmed Last Taken Type AtorvaSTATin [Lipitor] 40 mg PO DAILY 11/19/16 11/19/16 11/19/16 History Escitalopram [Lexapro] 10 mg PO DAILY 11/19/16 11/19/16 11/19/16 History Glipizide/Metformin HCl 1 each PO DAILY 11/19/16 11/19/16 11/19/16 History [glipiZIDE-Metformin 5-500 mg] Lisinopril [Zestril TAB] 40 mg PO DAILY 11/19/16 11/19/16 11/19/16 History Metoprolol [Lopressor TAB] 50 mg PO DAILY 11/19/16 11/19/16 11/19/16 History NIFEdipine XL [Procardia Xl] 30 mg PO QDAY 11/19/16 11/19/16 11/19/16 History Valsartan/Hydrochlorothiazide 1 each PO DAILY 11/19/16 11/19/16 11/19/16 History [Valsartan-Hctz 160-12.5 mg Tab] traZODone [Desyrel] 100 mg PO 4XD 11/19/16 11/19/16 11/19/16 History ED Neuro Physical Exam - General Limitations: No Limitations Suspected Stroke: Yes - NIHSS Assessment Interval: Baseline 1a. Level of Consciousness: alert/keenly responsive 1b. LOC Questions: answers both correctly 1c. LOC Commands: performs tasks correctly 2. Best Gaze: normal 3. Visual: no visual loss 4. Facial Palsy: minor paralysis 5b. Motor Arm Right: no drift 5a. Motor Arm Left: no drift 6a. Motor Leg Left: no drift 6b. Motor Leg Right: no drift 7. Limb Ataxia: absent 8. Sensory: normal 9. Best Language: no aphasia 10. Dysarthria: mild/moderate dysarthria 11. Extinction/Inattention: no abnormality Total Score: 2 Stroke Severity: Minor Stroke ED Course Vital Signs 06/14/19 06/14/19 06/14/19 20:50 21:29 21:30 Temperature 98.7 F Pulse Rate 68 59 L Respiratory 15 13 13 Rate Blood Pressure 173/88 Blood Pressure 173/88 161/96 [Right] O2 Sat by Pulse 99 99 99 Oximetry 06/14/19 21:50 Temperature Pulse Rate 58 L Respiratory Rate Blood Pressure Blood Pressure [Right] O2 Sat by Pulse Oximetry - Lab Data Result diagrams: 06/14/19 21:11 06/14/19 21:11 Lab Results 06/14/19 06/14/19 06/14/19 Range/Units 20:50 20:50 21:10 WBC (4.5-11.0) K/mm3 RBC (3.65-5.03) M/mm3 Hgb (10.1-14.3) gm/dl Hct (30.3-42.9) % MCV (79-97) fl MCH (28-32) pg MCHC (30-34) % RDW (13.2-15.2) % Plt Count (140-440) K/mm3 Lymph % (Auto) (13.4-35.0) % [place] % (Auto) (0.0-7.3) % Eos % (Auto) (0.0-4.3) % Baso % (Auto) (0.0-1.8) % Lymph # (1.2-5.4) K/mm3 [place] # (0.0-0.8) K/mm3 Eos # (0.0-0.4) K/mm3 Baso # (0.0-0.1) K/mm3 Seg Neutrophils % (40.0-70.0) % Seg Neutrophils # (1.8-7.7) K/mm3 PT (12.2-14.9) Sec. INR (0.87-1.13) APTT (24.2-36.6) Sec. Thrombin Time (15.1-19.6) Sec. Sodium (137-145) mmol/L Potassium (3.6-5.0) mmol/L Chloride (98-107) mmol/L Carbon Dioxide (22-30) mmol/L Anion Gap mmol/L BUN (7-17) mg/dL Creatinine (0.7-1.2) mg/dL Estimated GFR ml/min BUN/Creatinine Ratio % Glucose (65-100) mg/dL POC Glucose 67 L (70-105) Calcium (8.4-10.2) mg/dL Magnesium (1.7-2.3) mg/dL Total Creatine Kinase (30-135) units/L Troponin T (0.00-0.029) ng/mL Urine Color Colorless (Yellow) Urine Turbidity Clear (Clear) Urine pH 7.0 (5.0-7.0) Ur Specific [place] 1.006 (1.003-1.030) Urine Protein <15 mg/dl (Negative) mg/dL Urine Glucose (UA) 150 (Negative) mg/dL Urine Ketones Neg (Negative) mg/dL Urine Blood Mod (Negative) Urine Nitrite Neg (Negative) Urine Bilirubin Neg (Negative) Urine Urobilinogen < 2.0 (<2.0) mg/dL Ur Leukocyte Esterase Neg (Negative) Urine WBC (Auto) 4.0 (0.0-6.0) /HPF Urine RBC (Auto) 7.0 (0.0-6.0) /HPF Urine Bacteria (Auto) 1+ (Negative) /HPF Urine Opiates Screen Presumptive negative Urine Methadone Screen Presumptive negative Ur Barbiturates Screen Presumptive negative Ur Phencyclidine Scrn Presumptive negative Ur Amphetamines Screen Presumptive negative U Benzodiazepines Scrn Presumptive negative Urine Cocaine Screen Presumptive negative 06/14/19 06/14/19 06/14/19 Range/Units 21:11 21:11 21:11 WBC 12.0 H (4.5-11.0) K/mm3 RBC 4.28 (3.65-5.03) M/mm3 Hgb 11.9 (10.1-14.3) gm/dl Hct 35.9 (30.3-42.9) % MCV 84 (79-97) fl MCH 28 (28-32) pg MCHC 33 (30-34) % RDW 13.8 (13.2-15.2) % Plt Count 320 (140-440) K/mm3 Lymph % (Auto) 29.3 (13.4-35.0) % [place] % (Auto) 6.2 (0.0-7.3) % Eos % (Auto) 1.4 (0.0-4.3) % Baso % (Auto) 1.2 (0.0-1.8) % Lymph # 3.5 (1.2-5.4) K/mm3 [place] # 0.7 (0.0-0.8) K/mm3 Eos # 0.2 (0.0-0.4) K/mm3 Baso # 0.1 (0.0-0.1) K/mm3 Seg Neutrophils % 61.9 (40.0-70.0) % Seg Neutrophils # 7.4 (1.8-7.7) K/mm3 PT 13.0 (12.2-14.9) Sec. INR 0.99 (0.87-1.13) APTT 29.1 (24.2-36.6) Sec. Thrombin Time (15.1-19.6) Sec. Sodium 140 (137-145) mmol/L Potassium 3.0 L (3.6-5.0) mmol/L Chloride 99.2 (98-107) mmol/L Carbon Dioxide 24 (22-30) mmol/L Anion Gap 20 mmol/L BUN 17 (7-17) mg/dL Creatinine 0.9 (0.7-1.2) mg/dL Estimated GFR > 60 ml/min BUN/Creatinine Ratio 19 % Glucose 232 H (65-100) mg/dL POC Glucose (70-105) Calcium 9.6 (8.4-10.2) mg/dL Magnesium (1.7-2.3) mg/dL Total Creatine Kinase (30-135) units/L Troponin T < 0.010 (0.00-0.029) ng/mL Urine Color (Yellow) Urine Turbidity (Clear) Urine pH (5.0-7.0) Ur Specific [place] (1.003-1.030) Urine Protein (Negative) mg/dL Urine Glucose (UA) (Negative) mg/dL Urine Ketones (Negative) mg/dL Urine Blood (Negative) Urine Nitrite (Negative) Urine Bilirubin (Negative) Urine Urobilinogen (<2.0) mg/dL Ur Leukocyte Esterase (Negative) Urine WBC (Auto) (0.0-6.0) /HPF Urine RBC (Auto) (0.0-6.0) /HPF Urine Bacteria (Auto) (Negative) /HPF Urine Opiates Screen Urine Methadone Screen Ur Barbiturates Screen Ur Phencyclidine Scrn Ur Amphetamines Screen U Benzodiazepines Scrn Urine Cocaine Screen 06/14/19 06/14/19 06/14/19 Range/Units 21:11 21:11 22:03 WBC (4.5-11.0) K/mm3 RBC (3.65-5.03) M/mm3 Hgb (10.1-14.3) gm/dl Hct (30.3-42.9) % MCV (79-97) fl MCH (28-32) pg MCHC (30-34) % RDW (13.2-15.2) % Plt Count (140-440) K/mm3 Lymph % (Auto) (13.4-35.0) % [place] % (Auto) (0.0-7.3) % Eos % (Auto) (0.0-4.3) % Baso % (Auto) (0.0-1.8) % Lymph # (1.2-5.4) K/mm3 [place] # (0.0-0.8) K/mm3 Eos # (0.0-0.4) K/mm3 Baso # (0.0-0.1) K/mm3 Seg Neutrophils % (40.0-70.0) % Seg Neutrophils # (1.8-7.7) K/mm3 PT (12.2-14.9) Sec. INR (0.87-1.13) APTT (24.2-36.6) Sec. Thrombin Time 16.2 (15.1-19.6) Sec. Sodium (137-145) mmol/L Potassium (3.6-5.0) mmol/L Chloride (98-107) mmol/L Carbon Dioxide (22-30) mmol/L Anion Gap mmol/L BUN (7-17) mg/dL Creatinine (0.7-1.2) mg/dL Estimated GFR ml/min BUN/Creatinine Ratio % Glucose (65-100) mg/dL POC Glucose 101 (70-105) Calcium (8.4-10.2) mg/dL Magnesium 1.60 L (1.7-2.3) mg/dL Total Creatine Kinase 188 H (30-135) units/L Troponin T (0.00-0.029) ng/mL Urine Color (Yellow) Urine Turbidity (Clear) Urine pH (5.0-7.0) Ur Specific [place] (1.003-1.030) Urine Protein (Negative) mg/dL Urine Glucose (UA) (Negative) mg/dL Urine Ketones (Negative) mg/dL Urine Blood (Negative) Urine Nitrite (Negative) Urine Bilirubin (Negative) Urine Urobilinogen (<2.0) mg/dL Ur Leukocyte Esterase (Negative) Urine WBC (Auto) (0.0-6.0) /HPF Urine RBC (Auto) (0.0-6.0) /HPF Urine Bacteria (Auto) (Negative) /HPF Urine Opiates Screen Urine Methadone Screen Ur Barbiturates Screen Ur Phencyclidine Scrn Ur Amphetamines Screen U Benzodiazepines Scrn Urine Cocaine Screen Critical care attestation.: If time is entered above; I have spent that time in minutes in the direct care of this critically ill patient, excluding procedure time. ED Disposition Clinical Impression: Stroke (cerebrum) Disposition: DC/TX- SHRT-TRM GEN HOSP IP Is pt being admited?: Yes Condition: Stable Referrals: PRIMARY CARE, [Primary Care Provider] - 3-5 Days
[2019-06-14] MEDS ORDERED: POTASSIUM CHLORIDE ER 20 MEQ TAB PO ONE (22:18)
[2019-06-14] MEDS ORDERED: MAGNESIUM SULFATE 2 GM/50 ML BAG IV ONE (22:18)
[2019-06-14] MEDS ORDERED: MAGNESIUM OXIDE 400 MG TAB PO STA (22:19)
[2019-06-14] MEDS ORDERED: ASPIRIN 81 MG TAB CHEW PO ONE (22:28)
[2019-06-14] MEDS: POTASSIUM CHLORIDE 10 MEQ 10 MEQ/100 ML BAG IV SCH (23:25)
--- NOTE | 2019-06-14 23:38 | Cat Scan Report ---
CT angio head INDICATION / CLINICAL INFORMATION: 53 years Female; cva known occlusion. TECHNIQUE: Thin cut axial images obtained through the head during IV bolus contrast administration. S agittal, coronal, and 3 plane MIP reconstructions performed by the technologist. NASCET type criteria used evaluate stenoses. Automated exposure control utilized for radiation reduction purposes. COMPARISON: Prior MRA - 12/11/2016 FINDINGS: INTERNAL CAROTID ARTERIES: No significant narrowing appreciated. VERTEBROBASILAR SYSTEM: No significant narrowing appreciated. DISTAL BRANCHES: Distal branches of the anterior, middle, and posterior cerebral arteries are fairly symmetric in appearance and number. However, there are some branches in the left MCA territory which are not well visualized, consistent with patient's history of old, fairly large branch MCA infarct. 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 The right P1 segment is also mildly hypoplastic, when compared with the left. ANEURYSM: None identified. ADDITIONAL FINDINGS: Remainder of the surrounding soft tissues are grossly normal. IMPRESSION: No large branch occlusion appreciated. Signer Name: Montrell Peterson MD, III Signed: 06/14/2019 11:33 PM Workstation Name: [email or web address]
--- NOTE | 2019-06-14 23:48 | Cat Scan Report ---
CT angio neck INDICATION / CLINICAL INFORMATION: 53 years Female; cva known occlusion. TECHNIQUE: Thin cut axial images obtained through the head during IV bolus contrast administration. S agittal, coronal, and 3 plane MIP reconstructions performed by the technologist. NASCET type criteria used evaluate stenoses. All CT scans at this location are performed using CT dose reduction for ALAR A by means of automated exposure control. COMPARISON: None available. FINDINGS: ARCH: Normal aortic arch branching suggested. CAROTID ARTERIES: The visualized common and internal carotid arteries are widely patent. There is mil d narrowing in the left internal carotid artery just distal to the bulb region-not felt to be hemodyn amically significant. VERTEBRAL ARTERIES: Codominant vertebral system seen. No significant stenosis appreciated. ADDITIONAL FINDINGS: Mildly prominent soft tissue in the vallecula, presumably related to lingual ton sillar tissue. IMPRESSION: No significant stenosis appreciated on this CTA of the neck. Signer Name: Montrell Peterson MD, III Signed: 06/14/2019 11:44 PM Workstation Name: [id number]
--- NOTE | 2019-06-14 23:55 | History and Physical Report ---
History of Present Illness Date of examination: 06/14/19 History of present illness: 53 -year-old woman with a history of stroke, hypertension, diabetes, hyperlipidemia comes emergency room with complaints of right-sided weakness and slurred speech. Onset of symptoms unclear, symptoms have improved. Blood sugar was 67, this has been repleted Review Of Systems: Constitutional: no weight loss, fever, chills Ears, eyes, nose, mouth and throat: no nasal congestion, no nasal discharge, no sinus pressure, blurry vision, diplopia Neck: No neck pain or rigidity. Cardiovascular: No palpitations, chest pain Respiratory: No shortness of breath, cough Gastrointestinal: No hematochezia, abdominal pain Genitourinary : no dysuria, frequency Musculoskeletal: no muscle ache , joint pain Integumentary: no rash, no pruritis Neurological: no parathesias, +focal weakness Endocrine: no cold or heat intolerance, no polyuria or polydipsia Hematologic/Lymphatic: no easy bruising, no easy bleeding, no gland swelling Allergic/Immunologic: no urticaria, no angioedema. PAST MEDICAL HISTORY stroke, hypertension, diabetes, hyperlipidemia PAST SURGICAL HISTORY: Hysterectomy SOCIAL HISTORY: No drugs but urine positive for marijuana, no tobacco, alcohol FAMILY HISTORY: Hypertension Medications and Allergies Allergies Allergy/AdvReac Type Severity Reaction Status Date / Time No Known Allergies Allergy Verified 06/14/19 21:33 Home Medications Medication Instructions Recorded Confirmed Last Taken Type AtorvaSTATin [Lipitor] 40 mg PO DAILY 11/19/16 06/15/19 1 Day Ago History ~06/14/19 Escitalopram [Lexapro] 10 mg PO DAILY 11/19/16 06/15/19 1 Day Ago History ~06/14/19 Glipizide/Metformin HCl 2 tab PO BID 11/19/16 06/15/19 1 Day Ago History [glipiZIDE-Metformin 5-500 mg] ~06/14/19 Lisinopril [Zestril TAB] 40 mg PO DAILY 11/19/16 11/19/16 11/19/16 History Metoprolol [Lopressor TAB] 50 mg PO DAILY 11/19/16 06/15/19 1 Day Ago History ~06/14/19 NIFEdipine XL [Procardia Xl] 30 mg PO QDAY 11/19/16 06/15/19 1 Day Ago History ~06/14/19 Valsartan/Hydrochlorothiazide 1 each PO DAILY 11/19/16 11/19/16 11/19/16 History [Valsartan-Hctz 160-12.5 mg Tab] traZODone [Desyrel] 100 mg PO 4XD 11/19/16 11/19/16 11/19/16 History Diclofenac Sodium 75 mg PO BID 06/14/19 06/15/19 1 Day Ago History ~06/14/19 Hydrochlorothiazide 12.5 mg PO DAILY 06/14/19 06/15/19 1 Day Ago History ~06/14/19 Active Meds: Active Medications Dextrose (D50w (25gm) Syringe) 50 ml IV Q30MIN PRN; Protocol PRN Reason: Hypoglycemia Potassium Chloride (Kcl 10meq/100ml) 10 meq in 100 mls @ 100 mls/hr IV Q1H RONALDO Stop: 06/15/19 02:59 Last Admin: 06/14/19 23:25 Dose: 100 mls/hr Documented by: Exam - Physical Exam Narrative exam: Gen. appearance: Patient lying in bed, no apparent distress HEENT: Normocephalic, atraumatic, pupils equally round and reactive to light, extraocular movement intact, and no sclericterus,. No JVD or thyromegaly or nodule,neck supple, no carotid bruit ,mucous membranes moist, no exudate or erythema Heart: S1, S2, regular rate and rhythm Lungs: Clear bilaterally, breathing comfortable Abdomen: Positive bowel sounds, non-tender, nondistended, no organomegaly Extremity:no edema cyanosis, clubbing Skin: no rash, dry, warm Neuro: Oriented 3, cranial nerves II-12 intact, speech is fluent, motor and sensory intact - Constitutional Vitals: Temp Pulse Resp BP Pulse Ox 98.7 F 60 13 148/97 100 06/14/19 20:50 06/14/19 22:00 06/14/19 22:00 06/14/19 22:00 06/14/19 22:00 Results - Labs CBC & Chem 7: 06/14/19 21:11 06/14/19 21:11 Labs: Abnormal lab results 06/14/19 06/14/19 06/14/19 Range/Units 21:10 21:11 21:11 WBC 12.0 H (4.5-11.0) K/mm3 Potassium 3.0 L (3.6-5.0) mmol/L Glucose 232 H (65-100) mg/dL POC Glucose 67 L (70-105) Magnesium (1.7-2.3) mg/dL Total Creatine Kinase (30-135) units/L Salicylates (2.8-20.0) mg/dL Acetaminophen (10.0-30.0) ug/mL 06/14/19 06/14/19 06/14/19 Range/Units 21:11 21:45 21:45 WBC (4.5-11.0) K/mm3 Potassium (3.6-5.0) mmol/L Glucose (65-100) mg/dL POC Glucose (70-105) Magnesium 1.60 L (1.7-2.3) mg/dL Total Creatine Kinase 188 H (30-135) units/L Salicylates 2.0 L (2.8-20.0) mg/dL Acetaminophen < 5.0 L (10.0-30.0) ug/mL - Imaging and Cardiology EKG: image reviewed CT Scan - head: report reviewed Assessment and Plan CTA head and neck reviewed Assessment TIA Diabetes Hypertension Hyperlipidemia History of CVA Plan Admit to medicine Obtain MRI of the head, echo Start aspirin, statin IV hydralazine as needed for blood pressure control Consult neurology, physical and occupational, speech therapy Check fingersticks, hold sliding scale for now DVT prophylaxis
[2019-06-15] MEDS ORDERED: METOCLOPRAMIDE 10 MG/2 ML INJ IV PRN (00:33)
[2019-06-15] MEDS ORDERED: ONDANSETRON 4 MG/2 ML INJ IV PRN (00:33)
[2019-06-15] MEDS ORDERED: MAGNESIUM HYDROXIDE (MOM) ORAL LIQD UDC PO PRN (00:33)
[2019-06-15] MEDS ORDERED: hydrALAZINE 20 MG/1 ML INJ IV PRN (00:37)
[2019-06-15] MEDS ORDERED: POTASSIUM CHLORIDE 10 MEQ 10 MEQ/100 ML BAG IV ONE (00:39)
[2019-06-15] MEDS: POTASSIUM CHLORIDE 10 MEQ 10 MEQ/100 ML BAG IV SCH ×3 (00:49→03:55)
[2019-06-15] MEDS: ACETAMINOPHEN 325 MG TAB PO PRN ×2 (02:30→21:36)
[2019-06-15] MEDS ORDERED: ENOXAPARIN 30 MG/0.3 ML INJ SUB-Q SCH (10:00)
[2019-06-15] MEDS: ASPIRIN 325 MG TAB PO SCH (10:10)
[2019-06-15] MEDS: ESCITALOPRAM 10 MG TAB PO SCH (10:10)
[2019-06-15] MEDS: ENOXAPARIN 40 MG/0.4 ML INJ SUB-Q SCH ×2 (10:10→10:40)
--- NOTE | 2019-06-15 10:35 | Progress Note ---
Assessment and Plan Assessment and plan: --Acute CVA with right-sided weakness; Not a candidate for TPA Antiplatelets and statins, neuro work-up is in progress Neurology consulted Physical therapy occupational therapy rehabilitation Following moderate --Hypertension; moderate control Permissive hypertension first 24 to 48 hours Resume home medications PRN hydralazine --Dyslipidemia; lipid-lowering medications Low-cholesterol diet --Old history of CVA; with right-sided weakness Resolved in the past --Recreational drug use/marijuana Patient advised to quit recreational drug use verbalized understanding --DVT prophylaxis; Lovenox Closely monitor the patient and adjust the management as needed Follow neurology evaluation recommendations Plan of care reviewed with the patient Follow MRI, if neuro work-up is negative Follow physical therapy for recommendations Possible home with home health versus outpatient PT when medically stable Plan of care reviewed with the patient, at the bedside Neurologist, and her nurse History Interval history: Patient seen and examined medical records reviewed Very pleasant 53-year-old female patient with significant past medical history of CVA with right-sided weakness with complete resolution,With no residual symptoms hypertension dyslipidemia diabetes mellitus was admitted through emergency room with right-sided weakness slurring of speech and right facial droop. Patient also reports mild hypoglycemia with blood sugars in 60s, Stroke protocol initiated, neuro work-up is in progress Today patient feels slightly better still has mild slurred speech And mild weakness of the right upper extremity and mild droop of right side of the face Patient denies any headache or dizziness Alert awake oriented x3, Vital signs reviewed Hospitalist Physical - Constitutional Vitals: Temp Pulse Resp BP Pulse Ox 97.7 F 64 18 137/87 95 06/15/19 05:45 06/15/19 04:44 06/15/19 04:44 06/15/19 04:44 06/15/19 09:03 General appearance: Present: no acute distress, well-nourished, other (Right facial droop) - EENT Eyes: Present: PERRL - Neck Neck: Present: supple, normal ROM - Respiratory Respiratory effort: normal Respiratory: bilateral: diminished, negative: rales, rhonchi, wheezing - Cardiovascular Rhythm: regular Heart Sounds: Present: S1 & S2 - Extremities Extremities: no ischemia, No edema - Abdominal General gastrointestinal: soft, non-tender, non-distended, normal bowel sounds - Integumentary Integumentary: Present: clear, warm - Psychiatric Psychiatric: appropriate mood/affect, cooperative - Neurologic Neurologic: other (Right-sided residual weakness) Results - Labs CBC & Chem 7: 06/14/19 21:11 06/14/19 21:11 Labs: Laboratory Last Values WBC 12.0 K/mm3 (4.5-11.0) H 06/14/19 21:11 RBC 4.28 M/mm3 (3.65-5.03) 06/14/19 21:11 Hgb 11.9 gm/dl (10.1-14.3) 06/14/19 21:11 Hct 35.9 % (30.3-42.9) 06/14/19 21:11 MCV 84 fl (79-97) 06/14/19 21:11 MCH 28 pg (28-32) 06/14/19 21:11 MCHC 33 % (30-34) 06/14/19 21:11 RDW 13.8 % (13.2-15.2) 06/14/19 21:11 Plt Count 320 K/mm3 (140-440) 06/14/19 21:11 Lymph % (Auto) 29.3 % (13.4-35.0) 06/14/19 21:11 [place] % (Auto) 6.2 % (0.0-7.3) 06/14/19 21:11 Eos % (Auto) 1.4 % (0.0-4.3) 06/14/19 21:11 Baso % (Auto) 1.2 % (0.0-1.8) 06/14/19 21:11 Lymph # 3.5 K/mm3 (1.2-5.4) 06/14/19 21:11 [place] # 0.7 K/mm3 (0.0-0.8) 06/14/19 21:11 Eos # 0.2 K/mm3 (0.0-0.4) 06/14/19 21:11 Baso # 0.1 K/mm3 (0.0-0.1) 06/14/19 21:11 Seg Neutrophils % 61.9 % (40.0-70.0) 06/14/19 21:11 Seg Neutrophils # 7.4 K/mm3 (1.8-7.7) 06/14/19 21:11 PT 13.0 Sec. (12.2-14.9) 06/14/19 21:11 INR 0.99 (0.87-1.13) 06/14/19 21:11 APTT 29.1 Sec. (24.2-36.6) 06/14/19 21:11 Thrombin Time 16.2 Sec. (15.1-19.6) 06/14/19 21:11 Sodium 140 mmol/L (137-145) 06/14/19 21:11 Potassium 3.0 mmol/L (3.6-5.0) L 06/14/19 21:11 Chloride 99.2 mmol/L (98-107) 06/14/19 21:11 Carbon Dioxide 24 mmol/L (22-30) 06/14/19 21:11 Anion Gap 20 mmol/L 06/14/19 21:11 BUN 17 mg/dL (7-17) 06/14/19 21:11 Creatinine 0.9 mg/dL (0.7-1.2) 06/14/19 21:11 Estimated GFR > 60 ml/min 06/14/19 21:11 BUN/Creatinine Ratio 19 % 06/14/19 21:11 Glucose 232 mg/dL (65-100) H 06/14/19 21:11 POC Glucose 100 (70-105) 06/15/19 08:27 Calcium 9.6 mg/dL (8.4-10.2) 06/14/19 21:11 Magnesium 1.60 mg/dL (1.7-2.3) L 06/14/19 21:11 Total Creatine Kinase 188 units/L (30-135) H 06/14/19 21:11 Troponin T < 0.010 ng/mL (0.00-0.029) 06/14/19 21:11 Urine Color Colorless (Yellow) 06/14/19 20:50 Urine Turbidity Clear (Clear) 06/14/19 20:50 Urine pH 7.0 (5.0-7.0) 06/14/19 20:50 Ur Specific [place] 1.006 (1.003-1.030) 06/14/19 20:50 Urine Protein <15 mg/dl mg/dL (Negative) 06/14/19 20:50 Urine Glucose (UA) 150 mg/dL (Negative) 06/14/19 20:50 Urine Ketones Neg mg/dL (Negative) 06/14/19 20:50 Urine Blood Mod (Negative) 06/14/19 20:50 Urine Nitrite Neg (Negative) 06/14/19 20:50 Urine Bilirubin Neg (Negative) 06/14/19 20:50 Urine Urobilinogen < 2.0 mg/dL (<2.0) 06/14/19 20:50 Ur Leukocyte Esterase Neg (Negative) 06/14/19 20:50 Urine WBC (Auto) 4.0 /HPF (0.0-6.0) 06/14/19 20:50 Urine RBC (Auto) 7.0 /HPF (0.0-6.0) 06/14/19 20:50 Urine Bacteria (Auto) 1+ /HPF (Negative) 06/14/19 20:50 Salicylates 2.0 mg/dL (2.8-20.0) L 06/14/19 21:45 Urine Opiates Screen Presumptive negative 06/14/19 20:50 Urine Methadone Screen Presumptive negative 06/14/19 20:50 Acetaminophen < 5.0 ug/mL (10.0-30.0) L 06/14/19 21:45 Ur Barbiturates Screen Presumptive negative 06/14/19 20:50 Ur Phencyclidine Scrn Presumptive negative 06/14/19 20:50 Ur Amphetamines Screen Presumptive negative 06/14/19 20:50 U Benzodiazepines Scrn Presumptive negative 06/14/19 20:50 Urine Cocaine Screen Presumptive negative 06/14/19 20:50 U Marijuana (THC) Screen Presumptive positive 06/14/19 20:50 Drugs of Abuse Note Disclamer 06/14/19 20:50 Plasma/Serum Alcohol < 0.01 % (0-0.07) 06/14/19 21:45 Active Medications - Current Medications Current Medications: Generic Name Dose Route Start Last Admin Trade Name Freq PRN Reason Stop Dose Admin Acetaminophen 650 mg 06/15/19 00:33 06/15/19 02:30 Tylenol PO 650 mg Q4H PRN Administration Pain, Mild (1-3) Aspirin 325 mg 06/15/19 10:00 06/15/19 10:10 Aspirin PO 325 mg QDAY RONALDO Administration Atorvastatin Calcium 40 mg 06/15/19 10:00 06/15/19 10:10 Lipitor PO 40 mg DAILY RONALDO Administration Bisacodyl 10 mg 06/15/19 00:33 Dulcolax [place] QDAY PRN Constipation Dextrose 50 ml 06/14/19 21:02 D50w (25gm) Syringe IV Q30MIN PRN Hypoglycemia Protocol Enoxaparin Sodium 40 mg 06/15/19 10:00 06/15/19 10:10 Enoxaparin SUB-Q 40 mg QDAY@1000 RONALDO Administration Escitalopram Oxalate 10 mg 06/15/19 10:00 06/15/19 10:10 Lexapro PO 10 mg DAILY RONALDO Administration Hydralazine HCl 5 mg 06/15/19 00:37 Apresoline IV Q6H PRN Hypertension Magnesium Hydroxide 30 ml 06/15/19 00:33 Milk Of Magnesia PO Q4H PRN Constipation Metoclopramide HCl 10 mg 06/15/19 00:33 Reglan IV Q6H PRN Nausea And Vomiting Ondansetron HCl 4 mg 06/15/19 00:33 Zofran IV Q8H PRN Nausea And Vomiting Sodium Chloride 10 ml 06/15/19 00:33 Sodium Chloride Flush Syringe 10 Ml IV PRN PRN LINE FLUSH
--- NOTE | 2019-06-15 16:05 | Consultation ---
History of Present Illness Consult date: 06/15/19 Reason for Consult: Right sided weakness Chief complaint: Right sided weakness, slurred speech, face droop History of present illness: Patient is a 53 y/o woman w/ a h/o hemorrhagic stroke w/ no residual symptoms, HTN, HLD, DM. Yesterday, the patient developed RUE weakness, slurred speech, and facial droop. Patient is not certain of the time of onset of symptoms. She was drinking alcohol earlier in the day. Patient was brought to [facility], and found to have glucose of 67, which was replaced, after which neurologic deficits began to improve. However, she states that she still notes a slight change in her speech. Past History Past Medical History: other (h/o stroke, HTN, HLD, DM) Social history: lives with family, other (marijuana) Family history: no significant family history Medications and Allergies Allergies Allergy/AdvReac Type Severity Reaction Status Date / Time No Known Allergies Allergy Verified 06/14/19 21:33 Home Medications Medication Instructions Recorded Confirmed Last Taken Type AtorvaSTATin [Lipitor] 40 mg PO DAILY 11/19/16 06/15/19 1 Day Ago History ~06/14/19 Escitalopram [Lexapro] 10 mg PO DAILY 11/19/16 06/15/19 1 Day Ago History ~06/14/19 Glipizide/Metformin HCl 2 tab PO BID 11/19/16 06/15/19 1 Day Ago History [glipiZIDE-Metformin 5-500 mg] ~06/14/19 Metoprolol [Lopressor TAB] 50 mg PO DAILY 11/19/16 06/15/19 1 Day Ago History ~06/14/19 NIFEdipine XL [Procardia Xl] 30 mg PO QDAY 11/19/16 06/15/19 1 Day Ago History ~06/14/19 traZODone [Desyrel] 100 mg PO 4XD 11/19/16 06/15/19 11/19/16 History Hydrochlorothiazide 12.5 mg PO DAILY 06/14/19 06/15/19 1 Day Ago History ~06/14/19 Active Meds: Active Medications Acetaminophen (Tylenol) 650 mg PO Q4H PRN PRN Reason: Pain, Mild (1-3) Last Admin: 06/15/19 02:30 Dose: 650 mg Documented by: Aspirin (Aspirin) 325 mg PO QDAY [facility] Last Admin: 06/15/19 10:10 Dose: 325 mg Documented by: Atorvastatin Calcium (Lipitor) 40 mg PO DAILY [facility] Last Admin: 06/15/19 10:10 Dose: 40 mg Documented by: Bisacodyl (Dulcolax) 10 mg [place] QDAY PRN PRN Reason: Constipation Dextrose (D50w (25gm) Syringe) 50 ml IV Q30MIN PRN; Protocol PRN Reason: Hypoglycemia Enoxaparin Sodium (Enoxaparin) 40 mg SUB-Q QDAY@1000 [facility] Last Admin: 06/15/19 10:40 Dose: Not Given Documented by: Escitalopram Oxalate (Lexapro) 10 mg PO DAILY [facility] Last Admin: 06/15/19 10:10 Dose: 10 mg Documented by: Hydralazine HCl (Apresoline) 5 mg IV Q6H PRN PRN Reason: Hypertension Magnesium Hydroxide (Milk Of Magnesia) 30 ml PO Q4H PRN PRN Reason: Constipation Metoclopramide HCl (Reglan) 10 mg IV Q6H PRN PRN Reason: Nausea And Vomiting Ondansetron HCl (Zofran) 4 mg IV Q8H PRN PRN Reason: Nausea And Vomiting Sodium Chloride (Sodium Chloride Flush Syringe 10 Ml) 10 ml IV PRN PRN PRN Reason: LINE FLUSH Review of Systems All systems: negative Neurological: weakness, change in speech Physical Examination - Vital Signs Vital Signs: Vital Signs Temp Pulse Resp BP Pulse Ox 98.7 F 68 15 173/88 99 06/14/19 20:50 06/14/19 20:50 06/14/19 20:50 06/14/19 20:50 06/14/19 20:50 - Physical Exam Narrative exam: Patient is alert, awake, oriented x4. Follows complex commands. PERRL, EOMI, VFF, no facial weakness noted, tongue midline, b/l intact LT. 5/5 strength in all extremities. B/l intact LT. Intact to FTN and HTS b/l. 2+ reflexes throughout. No dysarthria noted. No aphasia noted. - Constitutional General appearance: comfortable - EENT EENT: Present: ATNC, PERRL, mucous membranes moist, hearing intact, vision int act - Respiratory Respiratory: Present: lungs clear, normal breath sounds - Cardiovascular Cardiovascular: Present: regular rate, normal S1, normal S2 Extremities: Present: no clubbing, cyanosis, no inflammation - Gastrointestinal Gastrointestinal: Present: normoactive bowel sounds, soft, non-tender - Integumentary Integumentary: Present: normal - Musculoskeletal Musculoskeletal: Present: no fluid collection, no pain - Psychiatric Psychiatric: Present: mood/affect appropriate - Level of Consciousness 1a. Level of Consciousness: alert/keenly responsive - LOC Questions 1b. LOC Questions: answers both correctly - LOC Command 1c. LOC Commands: performs tasks correctly - Best Gaze 2. Best Gaze: normal - Visual 3. Visual: no visual loss - Facial Palsy 4. Facial Palsy: normal symmetrical movement - Motor Arm 5a. Motor Arm Left: no drift 5b. Motor Arm Right: no drift - Motor Leg 6a. Motor Leg Left: no drift 6b. Motor Leg Right: no drift - Limb Ataxia 7. Limb Ataxia: absent - Sensory 8. Sensory: normal - Best Language 9. Best Language: no aphasia - Dysarthria 10. Dysarthria: normal - Extinction and Inattention 11. Extinction/Inattention: no abnormality - Scoring Total Score: 0 Stroke Severity: No Stroke Symptoms Results - Laboratory Findings CBC and BMP: 06/14/19 21:11 06/14/19 21:11 Abnormal Lab Findings: Abnormal Labs 06/14/19 06/14/19 06/14/19 21:10 21:11 21:11 WBC 12.0 H Potassium 3.0 L Glucose 232 H POC Glucose 67 L Magnesium Total Creatine Kinase Salicylates Acetaminophen 06/14/19 06/14/19 06/14/19 21:11 21:45 21:45 WBC Potassium Glucose POC Glucose Magnesium 1.60 L Total Creatine Kinase 188 H Salicylates 2.0 L Acetaminophen < 5.0 L Assessment and Plan Patient is a 53 y/o woman w/ a h/o hemorrhagic stroke w/ no residual symptoms, HTN, HLD, DM, who p/w RUE weakness, slurred speech, face droop. According the the patient's clinical findings, it is possible that she has had recrudescence of previous stroke symptoms in setting of hypoglycemia. In support of this, patient's symptoms began to improve with correction of hypoglycemia. Alternatively, she may have had an acute TIA/stroke. Plan: 1. Recrudescence of previous stroke symptoms vs. TIA/Stroke - CT head unremarkable - CTA head/neck: no significant stenosis - Check MRI brain to rule out stroke - Echo pending - Patient takes ASA at home, OK to continue for now - Cont. statin - PT/OT/ST - Telemetry monitoring while in house - DVT Ppx: Recommend lovenox 2. Hypertension: - Recommend BP goal of normotension, as symptoms have resolved. - Will continue to monitor patient Thank you for allowing me to take part in the care of this patient. Raúl Zuniga MD Neurology
[2019-06-16 04:34] VITALS: BP 147/73
[2019-06-16 07:38] LABS: Chol/HDL Ratio 2.4 %
--- NOTE | 2019-06-16 10:47 | Consultation ---
History of Present Illness Consult date: 06/16/19 Consult reason: tachycardia History of present illness: Impression Consult for SVT, I reviewed the tele strips, it is artifact, no arrhythmia Pt off floor in Echo will review when complete currently being evaluated for CVA HTN DM Lupus Plan CVA eval No evidence of arrhythmia, tele is artifact Echo pending a part of CVA eval Past History Past Medical History: diabetes, hypertension, other (h/o stroke, HTN, HLD, DM) Social history: lives with family, other (marijuana) Family history: no significant family history Medications and Allergies Allergies Allergy/AdvReac Type Severity Reaction Status Date / Time No Known Allergies Allergy Verified 06/14/19 21:33 Home Medications Medication Instructions Recorded Confirmed Last Taken Type AtorvaSTATin [Lipitor] 40 mg PO DAILY 11/19/16 06/15/19 1 Day Ago History ~06/14/19 Escitalopram [Lexapro] 10 mg PO DAILY 11/19/16 06/15/19 1 Day Ago History ~06/14/19 Glipizide/Metformin HCl 2 tab PO BID 11/19/16 06/15/19 1 Day Ago History [glipiZIDE-Metformin 5-500 mg] ~06/14/19 Metoprolol [Lopressor TAB] 50 mg PO DAILY 11/19/16 06/15/19 1 Day Ago History ~06/14/19 NIFEdipine XL [Procardia Xl] 30 mg PO QDAY 11/19/16 06/15/19 1 Day Ago History ~06/14/19 traZODone [Desyrel] 100 mg PO 4XD 11/19/16 06/15/19 11/19/16 History Hydrochlorothiazide 12.5 mg PO DAILY 06/14/19 06/15/19 1 Day Ago History ~06/14/19 Active Meds: Active Medications Acetaminophen (Tylenol) 650 mg PO Q4H PRN PRN Reason: Pain, Mild (1-3) Last Admin: 06/15/19 21:36 Dose: 650 mg Documented by: Aspirin (Aspirin) 325 mg PO QDAY [facility] Last Admin: 06/15/19 10:10 Dose: 325 mg Documented by: Atorvastatin Calcium (Lipitor) 40 mg PO DAILY [facility] Last Admin: 06/15/19 10:10 Dose: 40 mg Documented by: Bisacodyl (Dulcolax) 10 mg [place] QDAY PRN PRN Reason: Constipation Dextrose (D50w (25gm) Syringe) 50 ml IV Q30MIN PRN; Protocol PRN Reason: Hypoglycemia Enoxaparin Sodium (Enoxaparin) 40 mg SUB-Q QDAY@1000 [facility] Last Admin: 06/15/19 10:40 Dose: Not Given Documented by: Escitalopram Oxalate (Lexapro) 10 mg PO DAILY [facility] Last Admin: 06/15/19 10:10 Dose: 10 mg Documented by: Hydralazine HCl (Apresoline) 5 mg IV Q6H PRN PRN Reason: Hypertension Lorazepam (Ativan) 2 mg IM [employer] PRN PRN Reason: Agitation Magnesium Hydroxide (Milk Of Magnesia) 30 ml PO Q4H PRN PRN Reason: Constipation Metoclopramide HCl (Reglan) 10 mg IV Q6H PRN PRN Reason: Nausea And Vomiting Ondansetron HCl (Zofran) 4 mg IV Q8H PRN PRN Reason: Nausea And Vomiting Sodium Chloride (Sodium Chloride Flush Syringe 10 Ml) 10 ml IV PRN PRN PRN Reason: LINE FLUSH Physical Examination Vital Signs Temp Pulse Resp BP Pulse Ox 98.7 F 68 15 173/88 99 06/14/19 20:50 06/14/19 20:50 06/14/19 20:50 06/14/19 20:50 06/14/19 20:50 Results 06/14/19 21:11 06/14/19 21:11 Lipids 06/16/19 Range/Units 05:36 Triglycerides 68 (2-149) mg/dL Cholesterol 154 (50-199) mg/dL HDL Cholesterol 64 H (40-59) mg/dL Cholesterol/HDL Ratio 2.40 %
[2019-06-16] MEDS ORDERED: LORazepam 2 MG/ML VIAL IM PRN (11:00)
--- NOTE | 2019-06-16 11:19 | Progress Note ---
Assessment and Plan Patient is a 53 y/o woman w/ a h/o hemorrhagic stroke w/ no residual symptoms, HTN, HLD, DM, who p/w RUE weakness, slurred speech, face droop. According the the patient's clinical findings, it is possible that she has had recrudescence of previous stroke symptoms in setting of hypoglycemia. In support of this, patient's symptoms began to improve with correction of hypoglycemia. Alternatively, she may have had an acute TIA/stroke. Plan: 1. Recrudescence of previous stroke symptoms vs. TIA/Stroke - CT head unremarkable - CTA head/neck: no significant stenosis - Check MRI brain to rule out stroke- pending - Echo pending - Patient takes ASA at home, OK to continue for now - Cont. statin - PT/OT/ST - Telemetry monitoring while in house - DVT Ppx: Recommend lovenox 2. Hypertension: - Recommend BP goal of normotension, as symptoms have resolved. - Will sign off, as I am not covering neurology service over the weekend. Please consult neurologist covering weekend for further neurologic management and monitoring. Thank you for allowing me to take part in the care of this patient. Raúl Zuniga MD Neurology Subjective Date of service: 06/16/19 Principal diagnosis: Recrudescence of previous stroke symptoms Interval history: No acute events overnight. Objective - Exam Narrative Exam: Patient is alert, awake, oriented x4. Follows complex commands. PERRL, EOMI, VF F, no facial weakness noted, tongue midline, b/l intact LT. 5/5 strength in all extremities. B/l intact LT. Intact to FTN and HTS b/l. 2+ reflexes throughout. No dysarthria noted. No aphasia noted. - Vital Sign Vital Signs - 12hr 06/15/19 06/16/19 06/16/19 23:25 01:00 03:47 Temperature 98.0 F 97.8 F Pulse Rate 52 L 70 58 L Respiratory 18 18 Rate Blood Pressure 149/73 147/73 O2 Sat by Pulse 98 100 Oximetry 06/16/19 10:00 Temperature Pulse Rate Respiratory Rate Blood Pressure O2 Sat by Pulse 98 Oximetry - General Apperance Constitutional: comfortable - EENT EENT: ATNC, PERRL, mucous membranes moist, hearing intact, vision intact - Respiratory Respiratory: lungs clear, normal breath sounds - Cardiovascular Cardiovascular: regular rate, normal S1, normal S2 Extremities: no clubbing, cyanosis, no inflammation - Gastrointestinal Gastrointestinal: normoactive bowel sounds, soft, non-tender - Integumentary Integumentary: normal - Musculoskeletal Musculoskeletal: no pain, normal range of motion - Psychiatric Psychiatric: mood/affect appropriate - Laboratory Findings CBC and BMP: 06/14/19 21:11 06/14/19 21:11 Abnormal Lab Findings: Abnormal Labs 06/14/19 06/14/19 06/14/19 21:10 21:11 21:11 WBC 12.0 H Potassium 3.0 L Glucose 232 H POC Glucose 67 L Magnesium Total Creatine Kinase HDL Cholesterol Salicylates Acetaminophen 06/14/19 06/14/19 06/14/19 21:11 21:45 21:45 WBC Potassium Glucose POC Glucose Magnesium 1.60 L Total Creatine Kinase 188 H HDL Cholesterol Salicylates 2.0 L Acetaminophen < 5.0 L 06/15/19 06/15/19 06/15/19 12:34 16:31 21:14 WBC Potassium Glucose POC Glucose 169 H 129 H 128 H Magnesium Total Creatine Kinase HDL Cholesterol Salicylates Acetaminophen 06/16/19 06/16/19 05:36 08:09 WBC Potassium Glucose POC Glucose 124 H Magnesium Total Creatine Kinase HDL Cholesterol 64 H Salicylates Acetaminophen
[2019-06-16] MEDS: ESCITALOPRAM 10 MG TAB PO SCH (13:17)
[2019-06-16] MEDS: ENOXAPARIN 40 MG/0.4 ML INJ SUB-Q SCH (13:17)
[2019-06-16] MEDS: ASPIRIN 325 MG TAB PO SCH (13:17)
--- NOTE | 2019-06-16 13:18 | Magnetic Resonance Report ---
MRI BRAIN WITHOUT CONTRAST INDICATION / CLINICAL INFORMATION: stroke. TECHNIQUE: Multiplanar, multisequence MR images of the brain were obtained. COMPARISON: FINDINGS: The study is compared to the previous MRI of 12/13/2016. There is continued encephalomalacia involving the left frontal and parietal lobes compatible with old infarcts. However, there has been interval d evelopment of somewhat linear increased diffusion signal along the intervening left precentral gyrus measuring 2.37 m in greatest transverse dimension. This finding would be a compatible with acute/suba cute infarction. On the FLAIR sequence, there is otherwise moderate cerebral white matter disease most consistent with microvascular angiopathy. The diffusion imaging reveals no further evidence of recent infarction. Th ere is mild ex vacuo dilatation of the posterior left lateral ventricle. CRANIOCERVICAL JUNCTION: No significant abnormality. VASCULAR FLOW-VOIDS: No significant abnormality. ORBITS: No significant abnormality of visualized orbits. SINUSES / MASTOIDS: No significant abnormality of the visualized paranasal sinuses or mastoid air martell ls. ADDITIONAL FINDINGS: None. IMPRESSION: 1. There are persistent old infarcts involving the left frontal and parietal lobes with encephalomala mehreen. 2. There is acute/subacute infarct extending along the intervening left precentral gyrus as detailed above. 3. There is otherwise moderate chronic microvascular angiopathy. Signer Name: Jose Steele MD Signed: 06/16/2019 1:14 PM Workstation Name: [id number]
--- NOTE | 2019-06-16 16:19 | Discharge Summary ---
Providers - Providers Date of Admission: 06/16/19 12:03 Date of discharge: 06/16/19 Attending physician: CLEMENCIA NATHAN 06/15/19 Consult to Physician [CONS] Routine Comment: Consulting Provider: THONY LOPEZ Physician Instructions: Reason For Exam: tia 06/15/19 00:33 Occupational Therapy Evaluate and Treat [CONS] Routine Comment: Reason For Exam: Neuro deficits Physical Therapy Evaluation and Treat [CONS] Routine Comment: Reason For Exam: Neuro deficits 06/16/19 05:50 Consult to Physician [CONS] Routine Comment: Consulting Provider: SHAWN TOVAR Physician Instructions: Reason For Exam: HR >150 06/16/19 13:05 Speech Therapy Evaluation and Treat [CONS] Routine Reason For Exam: STROKE/MOUTH DROOP Primary care physician: [employer]SPORTATION SUPERINTENDENT Hospitalization Reason for admission: Right-sided weakness, slurred speech/acute CVA Condition: Stable Pertinent studies: CT head - CTA head/neck: no significant stenosis - Check MRI brain to rule out stroke- pending - Echo pending MRI;Persistent old infarcts involving frontal and parietal lobes Acute/subacute infarct extending along the intervening left precentral gyrus Chronic microvascular angiopathic Hospital course: 53 -year-old woman with a history of stroke, hypertension, diabetes, hyperlipidemia comes emergency room with complaints of right-sided weakness and slurred speech. Onset of symptoms unclear, symptoms have improved. Blood sugar was 67, this has been repleted Patient was not a candidate for TPA, evaluated by neurologist, had extensive neuro workup, possible TIA Patient's medications optimized, Today patient is comfortable no new complaints vital signs stable physical examination unremarkable Advised to follow restaurant busser for long-term cardiac monitoring Advised to follow in the stroke clinic for scheduled Patient is stable at discharge Discharge diagnoses: --Acute CVA with right-sided weakness; Not a candidate for TPA Antiplatelets and statins, MRI positive for acute stroke Neurology recommended to continue aspirin 81 mg daily Advised Plavix for one month only Heart patient hypercoagulable workup Outpatient long-term cardiac monitoring Follow-up [facility] with Dr. Cornelio Grace --Hypertension; moderate control Permissive hypertension first 24 to 48 hours Resume home medications PRN hydralazine --Dyslipidemia; lipid-lowering medications Low-cholesterol diet --Old history of CVA; with right-sided weakness Resolved in the past --Recreational drug use/marijuana Patient advised to quit recreational drug use verbalized understanding --DVT prophylaxis; Lovenox Closely monitor the patient and adjust the management as needed Follow neurology evaluation recommendations Plan of care reviewed with the patient Follow MRI, if neuro work-up is negative Follow physical therapy for recommendations Stable at Discharge Disposition: DC-01 TO HOME OR SELFCARE Time spent for discharge: 32 min Core Measure Documentation - Palliative Care Palliative Care/ Comfort Measures: Not Applicable - Core Measures Any of the following diagnoses?: stroke - Stroke Discharge Requirements Statin for LDL = or >70 mg/dl on DC: Yes Anticoag for atrial fib/atrial flutter: Not Applicable (no afib/flutter) Antithrombotic for ischemic stroke: Yes Exam - Constitutional Vitals: Temp Pulse Resp BP Pulse Ox 97.8 F 58 L 18 147/73 98 06/16/19 03:47 06/16/19 09:00 06/16/19 03:47 06/16/19 03:47 06/16/19 10:00 General appearance: Present: no acute distress, well-nourished, other (right facial droop) - EENT Eyes: Present: PERRL, EOM intact - Neck Neck: Present: supple, normal ROM - Respiratory Respiratory effort: normal Respiratory: bilateral: diminished, negative: rales, rhonchi, wheezing - Cardiovascular Rhythm: regular Heart Sounds: Present: S1 & S2 - Extremities Extremities: no ischemia, No edema - Abdominal General gastrointestinal: Present: soft, non-tender, non-distended, normal bowel sounds - Integumentary Integumentary: Present: clear, warm - Musculoskeletal Musculoskeletal: strength equal bilaterally - Psychiatric Psychiatric: appropriate mood/affect, cooperative - Neurologic Neurologic: other (mild residual right-sided weakness) Plan Activity: advance as tolerated Diet: low fat, diabetic Additional Instructions: Advised to see a neurologist Dr. Cornelio Grace at [facility] in 1 week. Advised to take Plavix for one month. Continue aspirin 81 mg daily. Outpatient hyper coagulation blood workup[ at [facility] office]. 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
[2019-06-17] MEDS ORDERED: ASPIRIN EC 81 MG TAB PO SCH (10:00)
[2019-06-17] MEDS ORDERED: CLOPIDOGREL 75 MG TAB PO SCH (10:00)
== END 2019-06-16 17:46 | disposition home or self-care (01) | DRG 65 ==
LOC: ED 20:48 → 4A 23:55 → OBSVTOIN 06-16 12:03
PROVIDERS: ADMIT Internal Medicine; ATTEND Internal Medicine
DX: I63.9 Cerebral infarction, unspecified (principal); G81.91 Hemiplegia, unspecified affecting right dominant side; F12.90 Cannabis use, unspecified, uncomplicated; E11.9 Type 2 diabetes mellitus without complications; E78.5 Hyperlipidemia, unspecified; R47.81 Slurred speech; I10 Essential (primary) hypertension; Z82.49 Family history of ischemic heart disease and other diseases of the circulatory system; Z90.710 Acquired absence of both cervix and uterus; Z79.899 Other long term (current) drug therapy
CPT/HCPCS: 36415; 70450; 70496; 70498; 70551; 80048; 80061; 80307; 80320; 81001; 82550; 82962; 83735; 84484; 85025; 85610; 85670; 85730; 93005; 93010; 93306; 96374; 96375; G0378; A9270-GY; G0480; J1650; J3475; J3480; Q9967

== ENCOUNTER 2019-06-21 18:06 | Observation (INO) | payer BC, MEDICARE ==
[2019-06-21] MEDS ORDERED: DEXTROSE 50% IN WATER (25GM) 50 ML SYRINGE IV ONE (18:25)
[2019-06-21] MEDS ORDERED: DEXTROSE 50% IN WATER (25GM) 50 ML VIAL IV PRN (18:25)
--- NOTE | 2019-06-21 18:26 | Emergency Department Report ---
ED Neuro Deficit HPI - General Chief Complaint: Neuro Symptoms/Deficit Stated Complaint: STROKE Time Seen by Provider: 06/21/19 18:15 Source: patient, EMS (my EMS disclaimed), RN notes reviewed, old records reviewed Mode of arrival: Stretcher Limitations: Physical Limitation - History of Present Illness Initial Comments: The patient is a 53-year-old female. I have evaluated this patient in the past. I admitted this patient to the hospital a few weeks ago for presumed TIA versus stroke Patient was admitted to the medical service at this hospital, had a CT angiogram head and neck which was negative for acute findings, however, she had MRI which demonstrated an acute/subacute infarct extending into the intervening left precentral gyrus. She was started on aspirin and Plavix therapy. She was then discharged in good health. She presents to the emergency room today as a possible code stroke. Patient states she was in her usual state of health today, in the kitchen, when her left leg got weak, and gave out on her. Accu- Chek was found to be in the 70s in the field. Patient denies physical pain. She denies additional complaints at this time. She had a 2-D transthoracic echocardiogram at this hospital was negative. Her left lower extremity weakness is somewhat improving. She was evaluated by consulting stroke neurology, Dr. Bhandari, As the patient was not a TPA candidate as she had a recent confirmed stroke within the past few w eeks. An emergent CT angiogram of the head and neck was ordered. -: Sudden, hour(s) (520 pm today) Location: left leg Presenting Symptoms: Present: Weak/Paralyzed One Side History of same: Yes Place: home Severity: severe Quality: weak Improves With: none Worsens With: none On Anticoagulants: Yes Context: sudden onset Associated Symptoms: denies other symptoms - Related Data Home Medications: Home Medications Medication Instructions Recorded Confirmed Last Taken Escitalopram [Lexapro] 10 mg PO DAILY 11/19/16 06/21/19 1 Day Ago ~06/14/19 Glipizide/Metformin HCl 2 tab PO BID 11/19/16 06/21/19 1 Day Ago [glipiZIDE-Metformin 5-500 mg] ~06/14/19 Metoprolol [Lopressor TAB] 50 mg PO DAILY 11/19/16 06/21/19 1 Day Ago ~06/14/19 NIFEdipine XL [Procardia Xl] 30 mg PO QDAY 11/19/16 06/21/19 1 Day Ago ~06/14/19 traZODone [Desyrel] 100 mg PO 4XD 11/19/16 06/21/19 11/19/16 Hydrochlorothiazide 12.5 mg PO DAILY 06/14/19 06/21/19 1 Day Ago ~06/14/19 Previous Rx's Medication Instructions Recorded Last Taken Type Aspirin EC [Halfprin EC] 81 mg PO QDAY #30 tablet 06/16/19 Unknown Rx AtorvaSTATin [Lipitor] 40 mg PO DAILY #30 06/16/19 Unknown Rx Clopidogrel [Plavix] 75 mg PO QDAY #30 tablet 06/16/19 Unknown Rx Allergies/Adverse Reactions: Allergies Allergy/AdvReac Type Severity Reaction Status Date / Time No Known Allergies Allergy Verified 06/21/19 18:07 ED Review of Systems ROS: Stated complaint: STROKE Other details as noted in HPI Constitutional: denies: fever Eyes: denies: eye discharge ENT: denies: congestion Respiratory: denies: wheezing Cardiovascular: denies: syncope Gastrointestinal: denies: vomiting Genitourinary: denies: urgency Musculoskeletal: denies: back pain Skin: denies: lesions Neurological: weakness Psychiatric: denies: depression ED Past Medical Hx - Past Medical History Hx Hypertension: Yes Hx CVA: Yes Hx Congestive Heart Failure: No Hx Diabetes: Yes Hx Asthma: No Hx COPD: No Additional medical history: hyperlipidemia - Surgical History Additional Surgical History: hysterectomy, UFE x2 - Social History Smoking Status: Never Smoker Substance Use Type: None - Medications Home Medications: Home Medications Medication Instructions Recorded Confirmed Last Taken Type Escitalopram [Lexapro] 10 mg PO DAILY 11/19/16 06/21/19 1 Day Ago History ~06/14/19 Glipizide/Metformin HCl 2 tab PO BID 11/19/16 06/21/19 1 Day Ago History [glipiZIDE-Metformin 5-500 mg] ~06/14/19 Metoprolol [Lopressor TAB] 50 mg PO DAILY 11/19/16 06/21/19 1 Day Ago History ~06/14/19 NIFEdipine XL [Procardia Xl] 30 mg PO QDAY 11/19/16 06/21/19 1 Day Ago History ~06/14/19 traZODone [Desyrel] 100 mg PO 4XD 11/19/16 06/21/19 11/19/16 History Hydrochlorothiazide 12.5 mg PO DAILY 06/14/19 06/21/19 1 Day Ago History ~06/14/19 Aspirin EC [Halfprin EC] 81 mg PO QDAY #30 tablet 06/16/19 06/21/19 Unknown Rx AtorvaSTATin [Lipitor] 40 mg PO DAILY #30 06/16/19 06/21/19 Unknown Rx Clopidogrel [Plavix] 75 mg PO QDAY #30 tablet 06/16/19 06/21/19 Unknown Rx ED Neuro Physical Exam - General Limitations: Physical Limitation General appearance: alert, in no apparent distress Suspected Stroke: Yes - Head Head exam: Present: atraumatic, normocephalic - Eye Eye exam: Present: normal appearance, EOMI. Absent: nystagmus - ENT ENT exam: Present: normal exam, normal orophraynx, mucous membranes moist, normal external ear exam - Neck Neck exam: Present: normal inspection, full ROM. Absent: tenderness, meningismus - Respiratory Respiratory exam: Present: normal lung sounds bilaterally. Absent: respiratory distress - Cardiovascular Cardiovascular Exam: Present: normal rhythm, bradycardia, normal heart sounds. Absent: systolic murmur, diastolic murmur, rubs, gallop - GI/Abdominal GI/Abdominal exam: Present: soft. Absent: distended, tenderness, guarding, rebound, rigid, pulsatile mass - Extremities Exam Extremities exam: Present: normal inspection, full ROM, other (2+ pulses noted in the bilateral upper and lower extremities. There is no palpable cord. negative Homans sign. Muscular compartments are soft. The pelvis is stable.). Absent: calf tenderness - Back Exam Back exam: Present: normal inspection. Absent: tenderness, CVA tenderness (R), CVA tenderness (L), paraspinal tenderness, vertebral tenderness - Neurological Exam Neurological exam: Present: alert, oriented X3, motor sensory deficit - NIHSS Assessment Interval: Baseline 1a. Level of Consciousness: alert/keenly responsive 1b. LOC Questions: answers both correctly 1c. LOC Commands: performs tasks correctly 2. Best Gaze: normal 3. Visual: no visual loss 4. Facial Palsy: normal symmetrical movement 5b. Motor Arm Right: no drift 5a. Motor Arm Left: no drift 6a. Motor Leg Left: no gravity effort 6b. Motor Leg Right: no drift 7. Limb Ataxia: absent 8. Sensory: normal 9. Best Language: no aphasia 10. Dysarthria: normal 11. Extinction/Inattention: no abnormality Total Score: 3 Stroke Severity: Minor Stroke - Psychiatric Psychiatric exam: Present: anxious - Skin Skin exam: Present: warm, dry, intact, normal color. Absent: rash ED Course Vital Signs 06/21/19 06/21/19 06/21/19 19:24 19:30 20:16 Temperature 97.6 F 98 F Pulse Rate 59 L 60 60 Respiratory 14 17 17 Rate Blood Pressure 155/98 161/91 Blood Pressure 142/88 [Right] O2 Sat by Pulse 99 99 100 Oximetry 06/21/19 06/21/19 06/21/19 20:30 20:46 21:00 Temperature Pulse Rate 63 65 67 Respiratory 14 18 13 Rate Blood Pressure 145/96 145/96 145/96 Blood Pressure [Right] O2 Sat by Pulse 100 97 99 Oximetry 06/21/19 06/21/19 06/21/19 21:30 22:00 23:00 Temperature Pulse Rate 61 71 64 Respiratory 18 20 15 Rate Blood Pressure 153/95 153/95 149/92 Blood Pressure [Right] O2 Sat by Pulse 98 96 100 Oximetry - Lab Data Result diagrams: 06/21/19 18:23 06/21/19 18:23 Lab Results 06/21/19 06/21/19 06/21/19 Range/Units 18:23 18:23 18:23 WBC 10.9 (4.5-11.0) K/mm3 RBC 4.96 (3.65-5.03) M/mm3 Hgb 13.8 (10.1-14.3) gm/dl Hct 41.8 (30.3-42.9) % MCV 84 (79-97) fl MCH 28 (28-32) pg MCHC 33 (30-34) % RDW 13.7 (13.2-15.2) % Plt Count 388 (140-440) K/mm3 Lymph % (Auto) 39.9 H (13.4-35.0) % [place] % (Auto) 6.9 (0.0-7.3) % Eos % (Auto) 2.1 (0.0-4.3) % Baso % (Auto) 1.1 (0.0-1.8) % Lymph # 4.4 (1.2-5.4) K/mm3 [place] # 0.8 (0.0-0.8) K/mm3 Eos # 0.2 (0.0-0.4) K/mm3 Baso # 0.1 (0.0-0.1) K/mm3 Seg Neutrophils % 50.0 (40.0-70.0) % Seg Neutrophils # 5.4 (1.8-7.7) K/mm3 PT 12.3 (12.2-14.9) Sec. INR 0.92 (0.87-1.13) APTT 30.9 (24.2-36.6) Sec. Thrombin Time (15.1-19.6) Sec. Sodium 143 (137-145) mmol/L Potassium 4.6 (3.6-5.0) mmol/L Chloride 102.5 (98-107) mmol/L Carbon Dioxide 24 (22-30) mmol/L Anion Gap 21 mmol/L BUN 17 (7-17) mg/dL Creatinine 0.9 (0.7-1.2) mg/dL Estimated GFR > 60 ml/min BUN/Creatinine Ratio 19 % Glucose 82 (65-100) mg/dL POC Glucose (70-105) Calcium 10.7 H (8.4-10.2) mg/dL Magnesium (1.7-2.3) mg/dL Total Creatine Kinase (30-135) units/L Troponin T < 0.010 (0.00-0.029) ng/mL Urine Color (Yellow) Urine Turbidity (Clear) Urine pH (5.0-7.0) Ur Specific [place] (1.003-1.030) Urine Protein (Negative) mg/dL Urine Glucose (UA) (Negative) mg/dL Urine Ketones (Negative) mg/dL Urine Blood (Negative) Urine Nitrite (Negative) Urine Bilirubin (Negative) Urine Urobilinogen (<2.0) mg/dL Ur Leukocyte Esterase (Negative) Urine WBC (Auto) (0.0-6.0) /HPF Urine RBC (Auto) (0.0-6.0) /HPF U Epithel Cells (Auto) (0-13.0) /HPF Urine Bacteria (Auto) (Negative) /HPF 06/21/19 06/21/19 06/21/19 Range/Units 18:23 18:32 18:44 WBC (4.5-11.0) K/mm3 RBC (3.65-5.03) M/mm3 Hgb (10.1-14.3) gm/dl Hct (30.3-42.9) % MCV (79-97) fl MCH (28-32) pg MCHC (30-34) % RDW (13.2-15.2) % Plt Count (140-440) K/mm3 Lymph % (Auto) (13.4-35.0) % [place] % (Auto) (0.0-7.3) % Eos % (Auto) (0.0-4.3) % Baso % (Auto) (0.0-1.8) % Lymph # (1.2-5.4) K/mm3 [place] # (0.0-0.8) K/mm3 Eos # (0.0-0.4) K/mm3 Baso # (0.0-0.1) K/mm3 Seg Neutrophils % (40.0-70.0) % Seg Neutrophils # (1.8-7.7) K/mm3 PT (12.2-14.9) Sec. INR (0.87-1.13) APTT (24.2-36.6) Sec. Thrombin Time 16.6 (15.1-19.6) Sec. Sodium (137-145) mmol/L Potassium (3.6-5.0) mmol/L Chloride (98-107) mmol/L Carbon Dioxide (22-30) mmol/L Anion Gap mmol/L BUN (7-17) mg/dL Creatinine (0.7-1.2) mg/dL Estimated GFR ml/min BUN/Creatinine Ratio % Glucose (65-100) mg/dL POC Glucose 73 (70-105) Calcium (8.4-10.2) mg/dL Magnesium 2.00 (1.7-2.3) mg/dL Total Creatine Kinase 91 (30-135) units/L Troponin T (0.00-0.029) ng/mL Urine Color (Yellow) Urine Turbidity (Clear) Urine pH (5.0-7.0) Ur Specific [place] (1.003-1.030) Urine Protein (Negative) mg/dL Urine Glucose (UA) (Negative) mg/dL Urine Ketones (Negative) mg/dL Urine Blood (Negative) Urine Nitrite (Negative) Urine Bilirubin (Negative) Urine Urobilinogen (<2.0) mg/dL Ur Leukocyte Esterase (Negative) Urine WBC (Auto) (0.0-6.0) /HPF Urine RBC (Auto) (0.0-6.0) /HPF U Epithel Cells (Auto) (0-13.0) /HPF Urine Bacteria (Auto) (Negative) /HPF 06/21/19 06/21/19 Range/Units 20:31 20:47 WBC (4.5-11.0) K/mm3 RBC (3.65-5.03) M/mm3 Hgb (10.1-14.3) gm/dl Hct (30.3-42.9) % MCV (79-97) fl MCH (28-32) pg MCHC (30-34) % RDW (13.2-15.2) % Plt Count (140-440) K/mm3 Lymph % (Auto) (13.4-35.0) % [place] % (Auto) (0.0-7.3) % Eos % (Auto) (0.0-4.3) % Baso % (Auto) (0.0-1.8) % Lymph # (1.2-5.4) K/mm3 [place] # (0.0-0.8) K/mm3 Eos # (0.0-0.4) K/mm3 Baso # (0.0-0.1) K/mm3 Seg Neutrophils % (40.0-70.0) % Seg Neutrophils # (1.8-7.7) K/mm3 PT (12.2-14.9) Sec. INR (0.87-1.13) APTT (24.2-36.6) Sec. Thrombin Time (15.1-19.6) Sec. Sodium (137-145) mmol/L Potassium (3.6-5.0) mmol/L Chloride (98-107) mmol/L Carbon Dioxide (22-30) mmol/L Anion Gap mmol/L BUN (7-17) mg/dL Creatinine (0.7-1.2) mg/dL Estimated GFR ml/min BUN/Creatinine Ratio % Glucose (65-100) mg/dL POC Glucose 133 H (70-105) Calcium (8.4-10.2) mg/dL Magnesium (1.7-2.3) mg/dL Total Creatine Kinase (30-135) units/L Troponin T (0.00-0.029) ng/mL Urine Color Colorless (Yellow) Urine Turbidity Clear (Clear) Urine pH 8.0 H (5.0-7.0) Ur Specific [place] 1.008 (1.003-1.030) Urine Protein <15 mg/dl (Negative) mg/dL Urine Glucose (UA) 150 (Negative) mg/dL Urine Ketones Neg (Negative) mg/dL Urine Blood Sm (Negative) Urine Nitrite Neg (Negative) Urine Bilirubin Neg (Negative) Urine Urobilinogen < 2.0 (<2.0) mg/dL Ur Leukocyte Esterase Neg (Negative) Urine WBC (Auto) < 1.0 (0.0-6.0) /HPF Urine RBC (Auto) 8.0 (0.0-6.0) /HPF U Epithel Cells (Auto) 2.0 (0-13.0) /HPF Urine Bacteria (Auto) 1+ (Negative) /HPF - EKG Data -: EKG Interpreted by Mi EKG shows normal: sinus rhythm Rate: normal When compared to previous EKG there are: no significant change 06/21/19 23:25 The EKG today shows a bradycardic rhythm, right axis deviation, QTC within normal limits, low voltage, nonspecific T-wave abdomen bowel Wednesday, abnormal EKG, not consistent with ST elevation myocardial infarction. - Radiology Data Radiology results: report reviewed, image reviewed Print Report Referring Physician: GRAZYNA RODRIGEZ Patient Name: BEBA MARTE Date of : 1965 Sex: Female Report Date: 2019-06-21 Report Status: Finalized Findings [facility] [address] [place] [address] Cat Scan Report Signed Patient: BEBA MARTE MR#: [id number] : 1965 Acct:[id number] Age/Sex: 53 / F ADM Date: 06/21/19 Loc: ED Attending Dr: Ordering Physician: GRAZYNA RODRIGEZ MD Date of Service: 06/21/19 Procedure(s): CT angio neck Accession Number(s): [id number] cc: GRAZYNA RODRIGEZ MD CTA NECK WITH CONTRAST HISTORY: Stroke COMPARISON: None. TECHNIQUE: Routine CTA of the neck was performed. 3-D/MIP reformats were postprocessed. Percentage stenosis is determined by direct quantitative measurements of diseased internal carotid artery diameter compared with normal distal internal carotid artery reference segments or by criteria similar to NASCET where applicable.All CT scans at this location are performed using CT dose reduction for ALARA by means of automated exposure control CONTRAST: 100 ml of Omnipaque 350 FINDINGS: Aortic arch: No significant abnormality. Cervical vertebral arteries: No significant abnormality. Common carotid arteries: No significant abnormality. Carotid bifurcations: Normal Cervical internal carotid arteries: No significant abnormality. Additional findings: None. IMPRESSION: 1. Normal CTA of the brain. Signer Name: Hay Avalos MD Signed: 06/21/2019 9:15 PM Workstation Name: [id number] Transcribed By: BS Dictated By: Hay Broussard MD Electronically Authenticated By: Hay Broussard MD Signed Date/Time: 06/21/192114 DD/ 10 Print Report Referring Physician: GRAZYNA RODRIGEZ Patient Name: BEBA MARTE Date of : 1965 Sex: Female Report Date: 2019-06-21 Report Status: Finalized Findings [address] [address] Cat Scan Report Signed Patient: BEBA MARTE MR#: [id number] : 1965 Acct:[id number] Age/Sex: 53 / F ADM Date: 06/21/19 Loc: ED Attending Dr: Ordering Physician: GRAZYNA RODRIGEZ MD Date of Service: 06/21/19 Procedure(s): CT angio head Accession Number(s): [id number] cc: GRAZYNA RODRIGEZ MD CTA HEAD WITH CONTRAST HISTORY: Weakness COMPARISON: None. TECHNIQUE: Routine non-contrast CT Head, CTA of the head and post-contrast CT Head are performed. 3-D/MIP reformats postprocessed. All CT scans at this location are performed using CT dose reduction for ALARA by means of automated exposure control right normal. Left side, A1 segment of left middle cerebral artery is patent. Branches. CONTRAST: 100 ml of Omnipaque 350 FINDINGS: CTA Head: Intracranial vertebral arteries: No significant abnormality. Basilar artery: No significant abnormality. Posterior cerebral arteries: No significant abnormality. Intracranial internal carotid arteries: No significant abnormality. Anterior cerebral arteries: No significant abnormality. Left A1 is the dominant artery. Middle cerebral arteries: Right M1 segment is normal. The left side, one of the branches of left middle cerebral artery trifurcation is occluded. Dural venous sinuses:Not optimally opacified. No significant abnormality. Additional findings: In the CT scan of the brain, encephalomalacia is seen in the left frontal and left parietal region. 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 Signer Name: Hay Broussard MD Signed: 06/21/2019 8:45 PM Workstation Name: [id number] Transcribed By: BS Dictated By: Hay Broussard MD Electronically Authenticated By: Hay Broussard MD Signed Date/Time: 06/21/192044 DD/ 38 Print Report Referring Physician: GRAZYNA RODRIGEZ Patient Name: BEBA MARTE Date of : 1965 Sex: Female Report Date: 2019-06-21 Report Status: [place] [address] Cat Scan Report Signed Patient: BEBA MARTE MR#: [id number] : 1965 Acct:[id number] Age/Sex: 53 / F ADM Date: 06/21/19 Loc: ED Attending Dr: Ordering Physician: GRAZYNA RODRIGEZ MD Date of Service: 06/21/19 Procedure(s): CT head/brain wo con Accession Number(s): [id number] cc: GRAZYNA RODRIGEZ MD CT HEAD WITHOUT CONTRAST INDICATION / CLINICAL INFORMATION: neuro deficits <6hrs or sx present upon awakening. TECHNIQUE: All CT scans at this location are performed using CT dose reduction for ALARA by means of automated exposure control. COMPARISON: MRI brain 06/16/2019, head CT 06/14/2019 and MRI brain 12/11/2016. FINDINGS: HEMORRHAGE: No evidence of intracranial hemorrhage or extra-axial fluid collection. EXTRA-AXIAL SPACES: There is focal dilatation of cortical sulci secondary to remote infarctions involving left MCA territory involving left frontal, parietal and occipital lobes. Otherwise the cortical sulci, sylvian fissures and basilar cisterns have an unremarkable appearance. VENTRICULAR SYSTEM: The ventricular system is of normal size and configuration. There is little in the way of ex vacuo dilatation of the left lateral ventricle in this patient with remote large MCA infarctions. CEREBRAL PARENCHYMA: Large areas of encephalomalacia are observed in the left frontal, parietal and occipital lobes secondary to remote left MCA infarctions. These have been present on studies dating back through 12/11/2016. There is no definite indication of more recent infarction. If clinically warranted further evaluation with magnetic resonance imaging could be considered to more confidently exclude a recent infarction. MIDLINE SHIFT OR HERNIATION: There is no mass effect. CEREBELLUM / BRAINSTEM: Brainstem and cerebellum have an unremarkable appearance. INTRACRANIAL VESSELS:No abnormalities are identified on this noncontrast head CT. ORBITS: visualized portions of the orbits have an unremarkable appearance. SOFT TISSUES of HEAD: No significant abnormality. CALVARIUM: Evaluation of bone windows reveals no abnormalities. PARANASAL SINUSES / MASTOID AIR CELLS: Paranasal sinuses are free from inflammatory mucosal disease. Mastoid air cells are normally pneumatized. IMPRESSION: 1. Large areas of encephalomalacia are present in the left frontal lobe, left parietal lobe and left occipital lobe secondary to remote infarction. Similar findings are present on studies dating back through 12/11/2016. 2. No acute intracranial abnormalities are identified. Code stroke: I called a report of this study to Dr. Conde at [facility] emergency department at about 1730 Central standard time Signer Name: Catalino Matthews MD Signed: 06/21/2019 6:37 PM Workstation Name: [id number] Transcribed By: Dictated By: Catalino Matthews MD Electronically Authenticated By: Catalino Matthews MD Signed Date/Time: 06/21/19 [id number] - Medical Decision Making Differential diagnosis, including but not limited to, stroke, TIA, hypercoagulable state, ventricular thrombus Assessment and plan: 53-year-old female presenting with recurrent left lower extremity weakness. She is not a TPA candidate as she has a recent MRI from stroke. Her initial NIH score is 3. It is now 0. Her deficits have resolved. Noncontrast CT scan of the brain is negative for acute disease. CT angiogram shows left arterial thrombus, same laterality as the patient's initial deficit. Contacted [facility] stroke interventional neurology, Dr. Almaraz, who recommended given laterality of thrombus, prevent in symptoms, the patient did not require emergent endovascular intervention at this time. Went back to evaluate the patient, she is moving her arms and her legs without difficulty. NIH score is 0 at this time. We discussed CT scan findings. She took her aspirin and Plavix already today. The aforementioned neurologist does not recommend systemic anticoagulation, and we agree at this time. Expedited workup for hypercoag ulable state is recommended, along with ISA to evaluate for ventricular thrombus. Hospital physician, Dr. Shipley accepts the patient to the medical service. - Core Measures Measure Exclusions: not indicated - Thrombolytic Inclusion/Exclusion Thrombolytic Contraindications: Rapidily Improving s/s, Stroke in Past 3 Months, Patient on Anticoagulants Critical care attestation.: If time is entered above; I have spent that time in minutes in the direct care of this critically ill patient, excluding procedure time. ED Disposition Clinical Impression: TIA (transient ischemic attack), Arterial thrombosis Disposition: 09 OP ADMIT IP TO THIS HOSP Is pt being admited?: Yes Does the pt Need Aspirin: Yes Condition: Good
--- NOTE | 2019-06-21 18:33 | Consultation ---
History of Present Illness Consult date: 06/21/19 History of present illness: [facility] Date of Service:06/21/2019 18:04:33 Impression: RO Acute Ischemic Stroke Comments: 53 YO F with h/o HTN and recent stroke presented with left leg weakness that started about an hour ago likely secondary to right hemispheric stroke. Metrics: Last Known Well: 06/21/2019 17:20:00 [facility] Notification Time: 06/21/2019 18:03:25 Arrival Time: 06/21/2019 18:06:00 Stamp Time: 06/21/2019 18:04:33 Time First Login Attempt: 06/21/2019 18:10:28 Video Start Time: 06/21/2019 18:10:28 Symptoms: left sided weakness. NIHSS Start Assessment Time: 06/21/2019 18:21:28 Patient is not a candidate for tPA. Patient was not deemed candidate for tPA thrombolytics because of Stroke 5 days ago.. Video End Time: 06/21/2019 18:33:06 CT head was reviewed and results were: Large area of encephlomalacia in Left hemisphere. Advanced imaging CTA head and neck obtained. Radiologist was not called back for review of advanced imaging because pending ER Physician notified of the decision on thrombolytics management on 06/21/2019 18:24:35 Our recommendations are outlined below. Recommendations: Activate Stroke Protocol Admission/Order Set Stroke/Telemetry Floor Neuro Checks Bedside Swallow Eval DVT Prophylaxis IV Fluids, Normal Saline Head of Bed Below 30 Degrees Euglycemia and Avoid Hyperthermia (PRN Acetaminophen) Recommended Scan: MRI Head Lipid Panel to Be Obtained, if Not Done in the Last Three Months Therapies: Physical Therapy, Occupational Therapy, Speech Therapy Assessment When Applicable Dysphaghia Screen: Swallow Evaluation, Bedside NPO Until Swallow Evaluation DVT prophylaxis: Choice of Primary Team Disposition: Follow up with Teleneurology Follow up Sign Out: Discussed with Emergency Department Provider History of Present Illness: Patient is a 53 year old Female. Patient was brought by EMS for symptoms of left sided weakness. 53 YO F with h/o HTN and recent stroke presented with left leg weakness that st arted about an hour ago. She states that she was standing making popcorns when she suddenly had left leg weakness and her left leg gave away. she can not varnish remover her left leg at all. She was recently admitted for a stroke about [address] head was reviewed. Examination: BP(177/144),Blood Glucose(73) 1A: Level of Consciousness - Alert; keenly responsive+ 0 1B: Ask Month and Age - Both Questions Right+ 0 1C: Blink Eyes & Squeeze Hands - Performs Both Tasks+ 0 2: Test Horizontal Extraocular Movements - Normal+ 0 3: Test Visual [place] - No Visual Loss+ 0 4: Test Facial Palsy (Use Grimace if Obtunded) - Normal symmetry+ 0 5A: Test Left Arm Motor Drift - No Drift for 10 Seconds+ 0 5B: Test Right Arm Motor Drift - No Drift for 10 Seconds+ 0 6A: Test Left Leg Motor Drift - No Effort Against [place]+ 3 6B: Test Right Leg Motor Drift - No Drift for 5 Seconds+ 0 7: Test Limb Ataxia (FNF/Heel-[place]) - No Ataxia+ 0 8: Test Sensation - Normal; No sensory loss+ 0 9: Test Language/Aphasia - Normal; No aphasia+ 0 10: Test Dysarthria - Normal+ 0 11: Test Extinction/Inattention - No abnormality+ 0 NIHSS Score:3 Patient was informed the Neurology Consult would happen via TeleHealth consult by way of interactive audio and video telecommunications and consented to receiving care in this manner. Due to the immediate potential for life-threatening deterioration due to underlying acute neurologic illness, I spent 35 minutes providing critical care. This time includes time for face to face visit via telemedicine, review of medical records, imaging studies and discussion of findings with providers, the patient and/or family. Dr Talisha Bhandari [facility] Case [id number] Medications and Allergies Allergies Allergy/AdvReac Type Severity Reaction Status Date / Time No Known Allergies Allergy Verified 06/21/19 18:07 Home Medications Medication Instructions Recorded Confirmed Last Taken Type Escitalopram [Lexapro] 10 mg PO DAILY 11/19/16 06/15/19 1 Day Ago History ~06/14/19 Glipizide/Metformin HCl 2 tab PO BID 11/19/16 06/15/19 1 Day Ago History [glipiZIDE-Metformin 5-500 mg] ~06/14/19 Metoprolol [Lopressor TAB] 50 mg PO DAILY 11/19/16 06/15/19 1 Day Ago History ~06/14/19 NIFEdipine XL [Procardia Xl] 30 mg PO QDAY 11/19/16 06/15/19 1 Day Ago History ~06/14/19 traZODone [Desyrel] 100 mg PO 4XD 11/19/16 06/15/19 11/19/16 History Hydrochlorothiazide 12.5 mg PO DAILY 06/14/19 06/15/19 1 Day Ago History ~06/14/19 Aspirin EC [Halfprin EC] 81 mg PO QDAY #30 tablet 06/16/19 Unknown Rx AtorvaSTATin [Lipitor] 40 mg PO DAILY #30 06/16/19 Unknown Rx Clopidogrel [Plavix] 75 mg PO QDAY #30 tablet 06/16/19 Unknown Rx Active Meds: Active Medications Dextrose (D50w (25gm) Vial) 50 gm IV Q30MIN PRN; Protocol PRN Reason: Hypoglycemia
[2019-06-21 18:35] LABS: Basophils # (Auto) 0.1 K/mm3 (0.0-0.1); Basophils % (Auto) 1.1 % (0.0-1.8); Eosinophils # (Auto) 0.2 K/mm3 (0.0-0.4); Eosinophils % (Auto) 2.1 % (0.0-4.3); Hematocrit 41.8 % (30.3-42.9); Hemoglobin 13.8 gm/dl (10.1-14.3); Lymphocytes # (Auto) 4.4 K/mm3 (1.2-5.4); Lymphocytes % (Auto) 39.9 % (13.4-35.0); Mean Corpuscular HGB Conc 33 % (30-34); Mean Corpuscular Volume 84 fl (79-97); Monocytes # (Auto) 0.8 K/mm3 (0.0-0.8); Monocytes % (Auto) 6.9 % (0.0-7.3); Platelet Count 388 K/mm3 (140-440); Red Blood Count 4.96 M/mm3 (3.65-5.03); Red Cell Distribution Width 13.7 % (13.2-15.2)
[2019-06-21] MEDS ORDERED: SODIUM CHLORIDE 0.9% 500 ML 500 ML IV ONE (18:35)
--- NOTE | 2019-06-21 18:41 | Cat Scan Report ---
CT HEAD WITHOUT CONTRAST INDICATION / CLINICAL INFORMATION: neuro deficits <6hrs or sx present upon awakening. TECHNIQUE: All CT scans at this location are performed using CT dose reduction for ALARA by means of automated e xposure control. COMPARISON: MRI brain 06/16/2019, head CT 06/14/2019 and MRI brain 12/11/2016. FINDINGS: HEMORRHAGE: No evidence of intracranial hemorrhage or extra-axial fluid collection. EXTRA-AXIAL SPACES: There is focal dilatation of cortical sulci secondary to remote infarctions invol ving left MCA territory involving left frontal, parietal and occipital lobes. Otherwise the cortical sulci, sylvian fissures and basilar cisterns have an unremarkable appearance. VENTRICULAR SYSTEM: The ventricular system is of normal size and configuration. There is little in e way of ex vacuo dilatation of the left lateral ventricle in this patient with remote large MCA infa rctions. CEREBRAL PARENCHYMA: Large areas of encephalomalacia are observed in the left frontal, parietal and o ccipital lobes secondary to remote left MCA infarctions. These have been present on studies dating ba through 12/11/2016. There is no definite indication of more recent infarction. If clinically warran estuardo further evaluation with magnetic resonance imaging could be considered to more confidently exclud e a recent infarction. MIDLINE SHIFT OR HERNIATION: There is no mass effect. CEREBELLUM / BRAINSTEM: Brainstem and cerebellum have an unremarkable appearance. INTRACRANIAL VESSELS:No abnormalities are identified on this noncontrast head CT. ORBITS: visualized portions of the orbits have an unremarkable appearance. SOFT TISSUES of HEAD: No significant abnormality. CALVARIUM: Evaluation of bone windows reveals no abnormalities. PARANASAL SINUSES / MASTOID AIR CELLS: Paranasal sinuses are free from inflammatory mucosal disease. Mastoid air cells are normally pneumatized. IMPRESSION: 1. Large areas of encephalomalacia are present in the left frontal lobe, left parietal lobe and left occipital lobe secondary to remote infarction. Similar findings are present on studies dating back rough 12/11/2016. 2. No acute intracranial abnormalities are identified. Code stroke: I called a report of this study to Dr. Conde at [facility] emergency departm ent at about 1730 Central standard time Signer Name: Catalino Matthews MD Signed: 06/21/2019 6:37 PM Workstation Name: [id number]
[2019-06-21 18:45] LABS: INR 0.92 (0.87-1.13)
[2019-06-21 18:46] LABS: Partial Thromboplastin Time 30.9 Sec. (24.2-36.6)
[2019-06-21 18:55] LABS: BUN/Creatinine Ratio 19; Blood Urea Nitrogen 17 mg/dL (7-17); Calcium 10.7 mg/dL (8.4-10.2); Hemolysis Index 0
[2019-06-21] MEDS ORDERED: D5W/0.45% NACL 1,000 ML IV SCH (19:00)
--- NOTE | 2019-06-21 20:49 | Cat Scan Report ---
CTA HEAD WITH CONTRAST HISTORY: Weakness COMPARISON: None. TECHNIQUE: Routine non-contrast CT Head, CTA of the head and post-contrast CT Head are performed. 3-D /MIP reformats postprocessed. All CT scans at this location are performed using CT dose reduction for ALARA by means of automated exposure control right normal. Left side, A1 segment of left middle cere bral artery is patent. Branches. CONTRAST: 100 ml of Omnipaque 350 FINDINGS: CTA Head: Intracranial vertebral arteries: No significant abnormality. Basilar artery: No significant abnormality. Posterior cerebral arteries: No significant abnormality. Intracranial internal carotid arteries: No significant abnormality. Anterior cerebral arteries: No significant abnormality. Left A1 is the dominant artery. Middle cerebral arteries: Right M1 segment is normal. The left side, one of the branches of left midd le cerebral artery trifurcation is occluded. Dural venous sinuses:Not optimally opacified. No significant abnormality. Additional findings: In the CT scan of the brain, encephalomalacia is seen in the left frontal and le ft parietal region. 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 Signer Name: Hay Avalos MD Signed: 06/21/2019 8:45 PM Workstation Name: [id number]
[2019-06-21 21:03] LABS: Bacteria,Urine 1+ /HPF (Negative); Bilirubin,Urine NEG (Negative); Blood,Urine SM (Negative); Color,Urine Colorless (Yellow); Protein,Urine <15 mg/dL mg/dL (Negative); Urobilinogen,Urine < 2.0 mg/dL (<2.0); WBC,Urine < 1.0 /HPF (0.0-6.0)
--- NOTE | 2019-06-21 21:19 | Cat Scan Report ---
CTA NECK WITH CONTRAST HISTORY: Stroke COMPARISON: None. TECHNIQUE: Routine CTA of the neck was performed. 3-D/MIP reformats were postprocessed. Percentage s tenosis is determined by direct quantitative measurements of diseased internal carotid artery diamete r compared with normal distal internal carotid artery reference segments or by criteria similar to NA SCET where applicable.All CT scans at this location are performed using CT dose reduction for ALARA b y means of automated exposure control CONTRAST: 100 ml of Omnipaque 350 FINDINGS: Aortic arch: No significant abnormality. Cervical vertebral arteries: No significant abnormality. Common carotid arteries: No significant abnormality. Carotid bifurcations: Normal Cervical internal carotid arteries: No significant abnormality. Additional findings: None. IMPRESSION: 1. Normal CTA of the brain. Signer Name: Hay Avalos MD Signed: 06/21/2019 9:15 PM Workstation Name: [id number]
[2019-06-21] MEDS ORDERED: ASPIRIN 81 MG TAB CHEW PO ONE (22:31)
[2019-06-21] MEDS ORDERED: ASPIRIN 81 MG TAB CHEW ONE (22:58)
[2019-06-21] MEDS ORDERED: ONDANSETRON 4 MG/2 ML INJ IV PRN (23:40)
[2019-06-21] MEDS ORDERED: ACETAMINOPHEN 325 MG TAB PO PRN (23:40)
[2019-06-21] MEDS ORDERED: MAGNESIUM HYDROXIDE (MOM) ORAL LIQD UDC PO PRN (23:40)
--- NOTE | 2019-06-21 23:43 | History and Physical Report ---
History of Present Illness Date of admission: 06/21/19 22:35 History of present illness: 53 -year-old woman with a history of stroke, hypertension, diabetes, hyperlipidemia comes emergency room with complaints of left-sided weakness that started today at 520pm and started to improve after 3 hours. Also state that on Wednesday speech became slurred. The patient was just discharged from the hospital on 06/16, she was evaluated for stroke, workup reviewed. She was started on aspirin, Plavix and statin, states that she is compliant with medications. She saw her PMD on Wednesday, no change in her medication. She was ty pposed to follow with stroke clinic at [place] but she has not done so Review Of Systems: Constitutional: no weight loss, fever, chills Ears, eyes, nose, mouth and throat: no nasal congestion, no nasal discharge, no sinus pressure, blurry vision, diplopia Neck: No neck pain or rigidity. Cardiovascular: No palpitations, chest pain Respiratory: No shortness of breath, cough Gastrointestinal: No hematochezia, abdominal pain Genitourinary : no dysuria, frequency Musculoskeletal: no muscle ache , joint pain Integumentary: no rash, no pruritis Neurological: no parathesias, +focal weakness Endocrine: no cold or heat intolerance, no polyuria or polydipsia Hematologic/Lymphatic: no easy bruising, no easy bleeding, no gland swelling Allergic/Immunologic: no urticaria, no angioedema. PAST MEDICAL HISTORY stroke, hypertension, diabetes, hyperlipidemia PAST SURGICAL HISTORY: Hysterectomy SOCIAL HISTORY: No drugs but urine positive for marijuana, no tobacco, alcohol FAMILY HISTORY: Hypertension Medications and Allergies Allergies Allergy/AdvReac Type Severity Reaction Status Date / Time No Known Allergies Allergy Verified 06/21/19 18:07 Home Medications Medication Instructions Recorded Confirmed Last Taken Type Escitalopram [Lexapro] 10 mg PO DAILY 11/19/16 06/21/19 1 Day Ago History ~06/14/19 Glipizide/Metformin HCl 2 tab PO BID 11/19/16 06/21/19 1 Day Ago History [glipiZIDE-Metformin 5-500 mg] ~06/14/19 NIFEdipine XL [Procardia Xl] 30 mg PO QDAY 11/19/16 06/21/19 1 Day Ago History ~06/14/19 traZODone [Desyrel] 100 mg PO 4XD 11/19/16 06/21/19 11/19/16 History Hydrochlorothiazide 12.5 mg PO DAILY 06/14/19 06/21/19 1 Day Ago History ~06/14/19 Aspirin EC [Halfprin EC] 81 mg PO QDAY #30 tablet 06/16/19 06/21/19 Unknown Rx Apixaban [Eliquis] 5 mg PO Q12HR #60 tablet 06/24/19 Unknown Rx AtorvaSTATin [Lipitor] 80 mg PO QHS #60 tablet 06/24/19 Unknown Rx Active Meds: Active Medications Dextrose (D50w (25gm) Vial) 50 gm IV Q30MIN PRN; Protocol PRN Reason: Hypoglycemia Enoxaparin Sodium (Enoxaparin) 40 mg SUB-Q QDAY RONALDO Dextrose/Sodium Chloride (D5/0.45ns) 1,000 mls @ 0 mls/hr IV DIRECT RONALDO Exam - Physical Exam Narrative exam: Gen. appearance: Patient lying in bed, no apparent distress HEENT: Normocephalic, atraumatic, pupils equally round and reactive to light, extraocular movement intact, and no sclericterus,. No JVD or thyromegaly or nodule,neck supple, no carotid bruit ,mucous membranes moist, no exudate or erythema Heart: S1, S2, regular rate and rhythm Lungs: Clear bilaterally, breathing comfortable Abdomen: Positive bowel sounds, non-tender, nondistended, no organomegaly Extremity:no edema cyanosis, clubbing Skin: no rash, dry, warm Neuro: Oriented 3, cranial nerves II-12 intact, speech is fluent, LLE 4/5 otherwise normal, sensory intact - Constitutional Vitals: Temp Pulse Resp BP Pulse Ox 98 F 64 15 149/92 100 06/21/19 19:30 06/21/19 23:00 06/21/19 23:00 06/21/19 23:00 06/21/19 23:00 Results - Labs CBC & Chem 7: 06/21/19 18:23 06/21/19 18:23 Labs: Abnormal lab results 06/21/19 06/21/19 06/21/19 Range/Units 18:23 18:23 20:31 Lymph % (Auto) 39.9 H (13.4-35.0) % POC Glucose 133 H (70-105) Calcium 10.7 H (8.4-10.2) mg/dL Urine pH (5.0-7.0) 06/21/19 Range/Units 20:47 Lymph % (Auto) (13.4-35.0) % POC Glucose (70-105) Calcium (8.4-10.2) mg/dL Urine pH 8.0 H (5.0-7.0) - Imaging and Cardiology CT Scan - head: report reviewed Assessment and Plan CTA head and neck reviewed Assessment TIA vs CVA, recurent, History of CVA, ?embolic MRI of the head on 06/15, will defer to neurology to order new MRI Obtain ISA, consult cardiology Continue aspirin, plavix, statin IV hydralazine as needed for blood pressure control Consult neurology, physical and occupational, speech therapy Diabetes Check fingersticks, start insulin sliding scale restart glipizide/metformin Hypertension IV hydralazine as needed for blood pressure control Hyperlipidemia Continue statin DVT prophylaxis
[2019-06-22 06:42] LABS: Chol/HDL Ratio 2.72 %
[2019-06-22] MEDS ORDERED: LIP THERAPY VASELINE TP PRN (07:49)
--- NOTE | 2019-06-22 09:02 | Consultation ---
History of Present Illness Consult date: 06/22/19 Reason for Consult: new onst left leg weakness History of present illness: This is 53 ys old female presented last evening with new onset of left leg weakness while she is in the kitchen according to pt she presented to hospital within one hour from the event her NIH was #3 CT was remarkable for multiple remote infarct in left frontal ,parietal and occipital she was discharged from the hospital on the of last month after she had right side weakness and diagnosed with CVA ,she is not a candidate for TPA due to recent CVA CTA was performed is remarkable for occluded branch of left MCA , According to her she just started on wednesday taking her ASA and plavix she is with hx of HTN,HLP,DM she had brother of massive [place] at age 35 today she is feeling better according to her left leg weakness improved 4 hours after the admission she is schaduled for MRI brain today ISA is pending LDL#99 H1C ? Past History Past Medical History: hypertension, hyperlipidemia, stroke Medications and Allergies Allergies Allergy/AdvReac Type Severity Reaction Status Date / Time No Known Allergies Allergy Verified 06/21/19 18:07 Home Medications Medication Instructions Recorded Confirmed Last Taken Type Escitalopram [Lexapro] 10 mg PO DAILY 11/19/16 06/21/19 1 Day Ago History ~06/14/19 Glipizide/Metformin HCl 2 tab PO BID 11/19/16 06/21/19 1 Day Ago History [glipiZIDE-Metformin 5-500 mg] ~06/14/19 Metoprolol [Lopressor TAB] 50 mg PO DAILY 11/19/16 06/21/19 1 Day Ago History ~06/14/19 NIFEdipine XL [Procardia Xl] 30 mg PO QDAY 11/19/16 06/21/19 1 Day Ago History ~06/14/19 traZODone [Desyrel] 100 mg PO 4XD 11/19/16 06/21/19 11/19/16 History Hydrochlorothiazide 12.5 mg PO DAILY 06/14/19 06/21/19 1 Day Ago History ~06/14/19 Aspirin EC [Halfprin EC] 81 mg PO QDAY #30 tablet 06/16/19 06/21/19 Unknown Rx AtorvaSTATin [Lipitor] 40 mg PO DAILY #30 06/16/19 06/21/19 Unknown Rx Clopidogrel [Plavix] 75 mg PO QDAY #30 tablet 06/16/19 06/21/19 Unknown Rx Active Meds: Active Medications Acetaminophen (Tylenol) 650 mg PO Q4H PRN PRN Reason: Pain, Mild (1-3) Aspirin (Halfprin Ec) 81 mg PO QDAY [facility] Atorvastatin Calcium (Lipitor) 80 mg PO QHS [facility] Bisacodyl (Dulcolax) 10 mg MO QDAY PRN PRN Reason: Constipation Clopidogrel Bisulfate (Plavix) 75 mg PO QDAY [facility] Dextrose (D50w (25gm) Vial) 50 gm IV Q30MIN PRN; Protocol PRN Reason: Hypoglycemia Enoxaparin Sodium (Enoxaparin) 40 mg SUB-Q QDAY [facility] Escitalopram Oxalate (Lexapro) 10 mg PO DAILY RONALDO Glipizide (Glucotrol) 10 mg PO BIDDIAB [facility] Hydrophilic Ointment (Vaseline Lip Therapy) 1 applic TP DIRECT PRN PRN Reason: Dry Lips Magnesium Hydroxide (Milk Of Magnesia) 30 ml PO Q4H PRN PRN Reason: Constipation Metformin HCl (Glucophage) 1,000 mg PO BIDDIAB [facility] Ondansetron HCl (Zofran) 4 mg IV Q8H PRN PRN Reason: Nausea And Vomiting Sodium Chloride (Sodium Chloride Flush Syringe 10 Ml) 10 ml IV PRN PRN PRN Reason: LINE FLUSH Review of Systems Psychiatric: anxiety Physical Examination - Vital Signs Vital Signs: Vital Signs Temp Pulse Resp BP Pulse Ox 97.6 F 59 L 12 155/98 99 06/21/19 19:24 06/21/19 19:24 06/21/19 19:24 06/21/19 19:24 06/21/19 19:24 - Constitutional General appearance: comfortable - EENT EENT: Present: PERRL - Respiratory Respiratory: Present: chest non-tender - Cardiovascular Cardiovascular: Present: normal S1, normal S2 Extremities: Present: no peripheral edema bilatateraly - Gastrointestinal Gastrointestinal: Present: normoactive bowel sounds - Integumentary Integumentary: Present: normal - Neurologic Cranial nerve examination: PERRL, EOMI (slight right facial droop) Speech examination: intact Sensorimotor examination: intact Detailed motor examination: other (slight left side weakness upper and lower with srength 4-/5) Detailed sensory examination: intact Reflex and gait examination: intact - Level of Consciousness 1a. Level of Consciousness: alert/keenly responsive - LOC Questions 1b. LOC Questions: answers both correctly - LOC Command 1c. LOC Commands: performs tasks correctly - Best Gaze 2. Best Gaze: normal - Visual 3. Visual: no visual loss - Facial Palsy 4. Facial Palsy: minor paralysis - Motor Arm 5a. Motor Arm Left: drift 5b. Motor Arm Right: no drift - Motor Leg 6a. Motor Leg Left: drift 6b. Motor Leg Right: no drift - Limb Ataxia 7. Limb Ataxia: absent - Sensory 8. Sensory: normal - Best Language 9. Best Language: no aphasia - Dysarthria 10. Dysarthria: normal - Extinction and Inattention 11. Extinction/Inattention: no abnormality - Scoring Total Score: 3 Stroke Severity: Minor Stroke Results - Laboratory Findings CBC and BMP: 06/21/19 18:23 06/21/19 18:23 Abnormal Lab Findings: Abnormal Labs 06/21/19 06/21/19 06/21/19 18:23 18:23 20:31 Lymph % (Auto) 39.9 H POC Glucose 133 H Calcium 10.7 H Urine pH 06/21/19 20:47 Lymph % (Auto) POC Glucose Calcium Urine pH 8.0 H Assessment and Plan Impression 1-This is 53 ys old female presented yesterday with new onset of left leg weakness lasted X4 hours she just been discharged from hospital on of last month after she had right side weakness with CT finding of multiple CVA in left frontal,parietal and occipital . CTA last night is remarkable for possible occluded a branch of left MCA , exam today is remarkable for slight give away weakness on left arm and leg with the possibility of new CVA can not be excluded , pt. just started taking her ASA 81 mg and plavix 75 mg on Wednesday ,she is with family hx CVD at young age . 2- Hx of HTN,HLP,DM PLAN 1- Review MRI 2- Agree on ISA due to recurrent CVA 3- ASA 81 mg and plavix 75 mg 3- VINI and ESR 4- Pt and Swallow evaluation 5- DVt precaution 6- Lipitor 80 mg 7- director of cardiac rehabilitation. will follow
[2019-06-22] MEDS ORDERED: METFORMIN HCL PO SCH (10:00)
[2019-06-22] MEDS ORDERED: GLIPIZIDE PO SCH (10:00)
[2019-06-22] MEDS: glipiZIDE 10 MG TAB PO SCH ×2 (12:18→17:58)
[2019-06-22] MEDS: metFORMIN 500 MG TAB PO SCH ×2 (12:18→17:58)
[2019-06-22] MEDS: CLOPIDOGREL 75 MG TAB PO SCH (12:22)
[2019-06-22] MEDS: ASPIRIN EC 81 MG TAB PO SCH (12:22)
[2019-06-22] MEDS: ESCITALOPRAM 10 MG TAB PO SCH (12:22)
[2019-06-22] MEDS: ENOXAPARIN 40 MG/0.4 ML INJ SUB-Q SCH (12:26)
--- NOTE | 2019-06-22 17:31 | Progress Note ---
Assessment and Plan Assessment and plan: CVA. CTA last night is remarkable for possible occluded a branch of left MCA. Neurology following. F/U MRI. Cont ASA and Plavix HTN. BP control HLD. Statins DM II. Tight blycemic control, SSRI and accuchecks History Interval history: No new issues since admission Hospitalist Physical - Constitutional Vitals: Temp Pulse Resp BP Pulse Ox 98.7 F 62 20 123/73 98 06/22/19 16:35 06/22/19 16:35 06/22/19 16:35 06/22/19 16:35 06/22/19 16:35 General appearance: Present: no acute distress, well-nourished - EENT Eyes: Present: PERRL, EOM intact ENT: hearing intact, clear oral mucosa, dentition normal - Neck Neck: Present: supple, normal ROM - Respiratory Respiratory effort: normal Respiratory: bilateral: CTA - Cardiovascular Rhythm: regular Heart Sounds: Present: S1 & S2. Absent: gallop, rub - Extremities Extremities: no ischemia, No edema, Full ROM - Abdominal General gastrointestinal: soft, non-tender, non-distended, normal bowel sounds - Integumentary Integumentary: Present: clear, warm, dry - Neurologic Neurologic: CNII-XII intact, moves all extremities Results - Labs CBC & Chem 7: 06/21/19 18:23 06/21/19 18:23 Labs: Laboratory Last Values WBC 10.9 K/mm3 (4.5-11.0) 06/21/19 18:23 RBC 4.96 M/mm3 (3.65-5.03) 06/21/19 18:23 Hgb 13.8 gm/dl (10.1-14.3) 06/21/19 18:23 Hct 41.8 % (30.3-42.9) 06/21/19 18:23 MCV 84 fl (79-97) 06/21/19 18:23 MCH 28 pg (28-32) 06/21/19 18:23 MCHC 33 % (30-34) 06/21/19 18:23 RDW 13.7 % (13.2-15.2) 06/21/19 18:23 Plt Count 388 K/mm3 (140-440) 06/21/19 18:23 Lymph % (Auto) 39.9 % (13.4-35.0) H 06/21/19 18:23 [place] % (Auto) 6.9 % (0.0-7.3) 06/21/19 18:23 Eos % (Auto) 2.1 % (0.0-4.3) 06/21/19 18:23 Baso % (Auto) 1.1 % (0.0-1.8) 06/21/19 18:23 Lymph # 4.4 K/mm3 (1.2-5.4) 06/21/19 18:23 [place] # 0.8 K/mm3 (0.0-0.8) 06/21/19 18:23 Eos # 0.2 K/mm3 (0.0-0.4) 06/21/19 18: Baso # 0.1 K/mm3 (0.0-0.1) 06/21/19 18:23 Seg Neutrophils % 50.0 % (40.0-70.0) 06/21/19 18: Seg Neutrophils # 5.4 K/mm3 (1.8-7.7) 06/21/19 18:23 ESR 28 mm/Hr (0-20) 06/22/19 14:27 PT 12.3 Sec. (12.2-14.9) 06/21/19 18:23 INR 0.92 (0.87-1.13) 06/21/19 18:23 APTT 30.9 Sec. (24.2-36.6) 06/21/19 18:23 Thrombin Time 16.6 Sec. (15.1-19.6) 06/21/19 18:23 Sodium 143 mmol/L (137-145) 06/21/19 18:23 Potassium 4.6 mmol/L (3.6-5.0) 06/21/19 18:23 Chloride 102.5 mmol/L (98-107) 06/21/19 18:23 Carbon Dioxide 24 mmol/L (22-30) 06/21/19 18:23 Anion Gap 21 mmol/L 06/21/19 18:23 BUN 17 mg/dL (7-17) 06/21/19 18:23 Creatinine 0.9 mg/dL (0.7-1.2) 06/21/19 18:23 Estimated GFR > 60 ml/min 06/21/19 18:23 BUN/Creatinine Ratio 19 % 06/21/19 18:23 Glucose 82 mg/dL (65-100) 06/21/19 18:23 POC Glucose 93 (70-105) 06/22/19 17:20 Calcium 10.7 mg/dL (8.4-10.2) H 06/21/19 18:23 Magnesium 2.00 mg/dL (1.7-2.3) 06/21/19 18:44 Total Creatine Kinase 91 units/L (30-135) 06/21/19 18:44 Troponin T < 0.010 ng/mL (0.00-0.029) 06/21/19 18:23 Triglycerides 73 mg/dL (2-149) 06/22/19 05:57 Cholesterol 161 mg/dL (50-199) 06/22/19 05:57 LDL Cholesterol Direct 99 mg/dL (50-130) 06/22/19 05:57 HDL Cholesterol 59 mg/dL (40-59) 06/22/19 05:57 Cholesterol/HDL Ratio 2.72 % 06/22/19 05:57 Urine Color Colorless (Yellow) 06/21/19 20:47 Urine Turbidity Clear (Clear) 06/21/19 20:47 Urine pH 8.0 (5.0-7.0) H 06/21/19 20:47 Ur Specific [place] 1.008 (1.003-1.030) 06/21/19 20:47 Urine Protein <15 mg/dl mg/dL (Negative) 06/21/19 20:47 Urine Glucose (UA) 150 mg/dL (Negative) 06/21/19 20:47 Urine Ketones Neg mg/dL (Negative) 06/21/19 20:47 Urine Blood Sm (Negative) 06/21/19 20:47 Urine Nitrite Neg (Negative) 06/21/19 20:47 Urine Bilirubin Neg (Negative) 06/21/19 20:47 Urine Urobilinogen < 2.0 mg/dL (<2.0) 06/21/19 20:47 Ur Leukocyte Esterase Neg (Negative) 06/21/19 20:47 Urine WBC (Auto) < 1.0 /HPF (0.0-6.0) 06/21/19 20:47 Urine RBC (Auto) 8.0 /HPF (0.0-6.0) 06/21/19 20:47 U Epithel Cells (Auto) 2.0 /HPF (0-13.0) 06/21/19 20:47 Urine Bacteria (Auto) 1+ /HPF (Negative) 06/21/19 20:47 Active Medications - Current Medications Current Medications: Generic Name Dose Route Start Last Admin Trade Name Freq PRN Reason Stop Dose Admin Acetaminophen 650 mg 06/21/19 23:40 Tylenol PO Q4H PRN Pain, Mild (1-3) Aspirin 81 mg 06/22/19 10:00 06/22/19 12:22 Halfprin Ec PO 81 mg QDAY RONALDO Administration Atorvastatin Calcium 80 mg 06/22/19 22:00 Lipitor PO QHS RONALDO Bisacodyl 10 mg 06/21/19 23:40 Dulcolax [place] QDAY PRN Constipation Clopidogrel Bisulfate 75 mg 06/22/19 10:00 06/22/19 12:22 Plavix PO 75 mg QDAY RONALDO Administration Dextrose 50 gm 06/21/19 18:25 D50w (25gm) Vial IV Q30MIN PRN Hypoglycemia Protocol Enoxaparin Sodium 40 mg 06/22/19 10:00 06/22/19 12:26 Enoxaparin SUB-Q 40 mg QDAY [facility] Administration Escitalopram Oxalate 10 mg 06/22/19 10:00 06/22/19 12:22 Lexapro PO 10 mg DAILY RONALDO Administration Glipizide 10 mg 06/22/19 08:00 06/22/19 12:18 Glucotrol PO Not Given BIDDIAB [facility] Hydrophilic Ointment 1 applic 06/22/19 07:49 Vaseline Lip Therapy TP DIRECT PRN Dry Lips Magnesium Hydroxide 30 ml 06/21/19 23:40 Milk Of Magnesia PO Q4H PRN Constipation Metformin HCl 1,000 mg 06/22/19 08:00 06/22/19 12:18 Glucophage PO Not Given BIDDIAB [facility] Ondansetron HCl 4 mg 06/21/19 23:40 Zofran IV Q8H PRN Nausea And Vomiting Sodium Chloride 10 ml 06/21/19 23:40 Sodium Chloride Flush Syringe 10 Ml IV PRN PRN LINE FLUSH
[2019-06-23] MEDS: metFORMIN 500 MG TAB PO SCH ×2 (08:00→17:06)
[2019-06-23] MEDS: glipiZIDE 10 MG TAB PO SCH ×2 (08:00→17:06)
--- NOTE | 2019-06-23 08:59 | Magnetic Resonance Report ---
MRI BRAIN WITHOUT CONTRAST INDICATION / CLINICAL INFORMATION: stroke. TECHNIQUE: Multiplanar, multisequence MR images of the brain were obtained. COMPARISON: The study is compared to the previous MRI of 06/16/2019. FINDINGS: BRAIN / INTRACRANIAL CONTENTS: There have been interval evolutionary changes of the subacute infarct along the left precentral gyrus from the previous MRI. However, there has been interval development o f acute infarct along the cortex of the high right medial right frontal lobe along the right anterior cerebral artery territory measure approximately 3.5 cm in greatest AP dimension. There are continued old infarcts involving the more anterior left frontal and posterior left parietal lobes compatible w ith old infarcts. There is otherwise mild to moderate cerebral white matter disease most consistent with microvascular angiopathy. There is no further evidence of recent infarction. The ventricular system appears unchang ed in size and configuration. No developing extra-axial fluid collections are identified. Which slightly CRANIOCERVICAL JUNCTION: No significant abnormality. VASCULAR FLOW-VOIDS: No significant abnormality. ORBITS: No significant abnormality of visualized orbits. SINUSES / MASTOIDS: No significant abnormality of the visualized paranasal sinuses or mastoid air martell ls. ADDITIONAL FINDINGS: None. IMPRESSION: 1. There has been interval development of acute infarct along the high medial right frontal lobe as d etailed above. 2. There have been interval evolutionary changes of the infarct along the left precentral gyrus from 06/16/2019. There is continued encephalomalacia within the more anterior left frontal and posterior l eft parietal lobes compatible with old infarcts. Signer Name: Jose Steele MD Signed: 06/22/2019 11:49 AM Workstation Name: [id number]
[2019-06-23] MEDS ORDERED: PROPOFOL 200 MG/20 ML VIAL IV ONE ×2 (09:30→09:31)
[2019-06-23] MEDS ORDERED: BENZOCAINE 20% TOP SPRAY 0.5 ML UNIT DOSE MM ONE (10:37)
[2019-06-23] MEDS ORDERED: SODIUM CHLORIDE 0.9% 500 ML 500 ML ONE (10:37)
[2019-06-23] MEDS ORDERED: SODIUM CHLORIDE 0.9% 500 ML 500 ML IV SCH (11:00)
[2019-06-23] MEDS ORDERED: BENZOCAINE 20% TOP SPRAY 0.5 ML UNIT DOSE MM NR (11:00)
--- NOTE | 2019-06-23 11:27 | Event Note ---
Date: 06/23/19 ISA performed - Normal LVEF with evidence of concentric LVH, no cardioembolic source. Continue management per neurology Outpatient cardiac follow-up is recommended for 30 day event monitor followed by possible ILR
--- NOTE | 2019-06-23 12:16 | Progress Note ---
Assessment and Plan Assessment and plan: CVA. CTA last night is remarkable for possible occluded a branch of left MCA. Neurology following. MRI revealed interval development of acute infarct along the high medial right frontal lobe. Also, there has been interval evolutionary changes of infarct along the left precentral gyrus from 06/16/19. There is continued encephalomalacia within the more anterior left frontal and posterior left parietal lobes compatible with old infarcts. Cont ASA and Plavix. ISA completed by cardiology revealed normal LVEF with evidence of concentric LVH with no cardioembolic source. Outpatient cardiac follow-up is recommended for 30 day event monitor followed by possible ILR. -I discussed the case with both Cardiology and Neurology with regards to anticoagulation. Given that the pt has had recurrent possibly embolic events, there is some suspicion for possible silent afib. 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 Also, consider second opinion at [place]. I will start eliquis today. Neurology recommends discontinuing plavix and keeping baby ASA HTN. BP control HLD. Statins DM II. Tight glycemic control, SSRI and accuchecks History Interval history: No new issues since admission Hospitalist Physical - Constitutional Vitals: Temp Pulse Resp BP Pulse Ox 98 F 66 20 165/88 100 06/23/19 06:00 06/23/19 11:28 06/23/19 11:28 06/23/19 11:28 06/23/19 11:28 General appearance: Present: no acute distress, well-nourished - EENT Eyes: Present: PERRL, EOM intact ENT: hearing intact, clear oral mucosa, dentition normal - Neck Neck: Present: supple, normal ROM - Respiratory Respiratory effort: normal Respiratory: bilateral: CTA - Cardiovascular Rhythm: regular Heart Sounds: Present: S1 & S2. Absent: gallop, rub - Extremities Extremities: no ischemia, No edema, Full ROM - Abdominal General gastrointestinal: soft, non-tender, non-distended, normal bowel sounds - Integumentary Integumentary: Present: clear, warm, dry - Neurologic Neurologic: CNII-XII intact, moves all extremities Results - Labs CBC & Chem 7: 06/21/19 18:23 06/21/19 18:23 Labs: Laboratory Last Values WBC 10.9 K/mm3 (4.5-11.0) 06/21/19 18:23 RBC 4.96 M/mm3 (3.65-5.03) 06/21/19 18: Hgb 13.8 gm/dl (10.1-14.3) 06/21/19 18: Hct 41.8 % (30.3-42.9) 06/21/19 18: MCV 84 fl (79-97) 06/21/19 18: MCH 28 pg (28-32) 06/21/19 18: MCHC 33 % (30-34) 06/21/19 18:23 RDW 13.7 % (13.2-15.2) 06/21/19 18: Plt Count 388 K/mm3 (140-440) 06/21/19 18: Lymph % (Auto) 39.9 % (13.4-35.0) H 06/21/19 18:23 [place] % (Auto) 6.9 % (0.0-7.3) 06/21/19 18: Eos % (Auto) 2.1 % (0.0-4.3) 06/21/19 18: Baso % (Auto) 1.1 % (0.0-1.8) 06/21/19 18: Lymph # 4.4 K/mm3 (1.2-5.4) 06/21/19 18: Door # 0.8 K/mm3 (0.0-0.8) 06/21/19 18: Eos # 0.2 K/mm3 (0.0-0.4) 06/21/19 18: Baso # 0.1 K/mm3 (0.0-0.1) 06/21/19 18: Seg Neutrophils % 50.0 % (40.0-70.0) 06/21/19 18: Seg Neutrophils # 5.4 K/mm3 (1.8-7.7) 06/21/19 18: ESR 28 mm/Hr (0-20) 06/22/19 14:27 PT 12.3 Sec. (12.2-14.9) 06/21/19 18: INR 0.92 (0.87-1.13) 06/21/19 18: APTT 30.9 Sec. (24.2-36.6) 06/21/19 18:23 Thrombin Time 16.6 Sec. (15.1-19.6) 06/21/19 18:23 Sodium 143 mmol/L (137-145) 06/21/19 18:23 Potassium 4.6 mmol/L (3.6-5.0) 06/21/19 18:23 Chloride 102.5 mmol/L (98-107) 06/21/19 18:23 Carbon Dioxide 24 mmol/L (22-30) 06/21/19 18:23 Anion Gap 21 mmol/L 06/21/19 18:23 BUN 17 mg/dL (7-17) 06/21/19 18:23 Creatinine 0.9 mg/dL (0.7-1.2) 06/21/19 18:23 Estimated GFR > 60 ml/min 06/21/19 18:23 BUN/Creatinine Ratio 19 % 06/21/19 18:23 Glucose 82 mg/dL (65-100) 06/21/19 18:23 POC Glucose 111 (70-105) H 06/23/19 08:52 Calcium 10.7 mg/dL (8.4-10.2) H 06/21/19 18:23 Magnesium 2.00 mg/dL (1.7-2.3) 06/21/19 18:44 Total Creatine Kinase 91 units/L (30-135) 06/21/19 18:44 Troponin T < 0.010 ng/mL (0.00-0.029) 06/21/19 18:23 Triglycerides 73 mg/dL (2-149) 06/22/19 05:57 Cholesterol 161 mg/dL (50-199) 06/22/19 05:57 LDL Cholesterol Direct 99 mg/dL (50-130) 06/22/19 05:57 HDL Cholesterol 59 mg/dL (40-59) 06/22/19 05:57 Cholesterol/HDL Ratio 2.72 % 06/22/19 05:57 Urine Color Colorless (Yellow) 06/21/19 20:47 Urine Turbidity Clear (Clear) 06/21/19 20:47 Urine pH 8.0 (5.0-7.0) H 06/21/19 20:47 Ur Specific [place] 1.008 (1.003-1.030) 06/21/19 20:47 Urine Protein <15 mg/dl mg/dL (Negative) 06/21/19 20:47 Urine Glucose (UA) 150 mg/dL (Negative) 06/21/19 20:47 Urine Ketones Neg mg/dL (Negative) 06/21/19 20:47 Urine Blood Sm (Negative) 06/21/19 20:47 Urine Nitrite Neg (Negative) 06/21/19 20:47 Urine Bilirubin Neg (Negative) 06/21/19 20:47 Urine Urobilinogen < 2.0 mg/dL (<2.0) 06/21/19 20:47 Ur Leukocyte Esterase Neg (Negative) 06/21/19 20:47 Urine WBC (Auto) < 1.0 /HPF (0.0-6.0) 06/21/19 20:47 Urine RBC (Auto) 8.0 /HPF (0.0-6.0) 06/21/19 20:47 U Epithel Cells (Auto) 2.0 /HPF (0-13.0) 06/21/19 20:47 Urine Bacteria (Auto) 1+ /HPF (Negative) 06/21/19 20:47 Active Medications - Current Medications Current Medications: Generic Name Dose Route Start Last Admin Trade Name Freq PRN Reason Stop Dose Admin Acetaminophen 650 mg 06/21/19 23:40 Tylenol PO Q4H PRN Pain, Mild (1-3) Aspirin 81 mg 06/22/19 10:00 06/22/19 12:22 Halfprin Ec PO 81 mg QDAY RONALDO Administration Atorvastatin Calcium 80 mg 06/22/19 22:00 06/22/19 21:02 Lipitor PO 80 mg QHS RONALDO Administration Benzocaine 3 spray 06/23/19 11:00 06/23/19 11:00 Hurricaine One 20% Topical [place] MM 06/23/19 19:00 3 spray PREOP NR Administration Bisacodyl 10 mg 06/21/19 23:40 Dulcolax IN QDAY PRN Constipation Clopidogrel Bisulfate 75 mg 06/22/19 10:00 06/22/19 12:22 Plavix PO 75 mg QDAY RONALDO Administration Dextrose 50 gm 06/21/19 18:25 D50w (25gm) Vial IV Q30MIN PRN Hypoglycemia Protocol Enoxaparin Sodium 40 mg 06/22/19 10:00 06/22/19 12:26 Enoxaparin SUB-Q 40 mg QDAY RONALDO Administration Escitalopram Oxalate 10 mg 06/22/19 10:00 06/22/19 12:22 Lexapro PO 10 mg DAILY RONALDO Administration Glipizide 10 mg 06/22/19 08:00 06/23/19 08:00 Glucotrol PO Not Given BIDDIAB [facility] Hydrophilic Ointment 1 applic 06/22/19 07:49 Vaseline Lip Therapy TP DIRECT PRN Dry Lips Sodium Chloride 500 mls @ 50 mls/hr 06/23/19 11:00 Nacl 0.9% 500 Ml IV DIRECT RONALDO Magnesium Hydroxide 30 ml 06/21/19 23:40 Milk Of Magnesia PO Q4H PRN Constipation Metformin HCl 1,000 mg 06/22/19 08:00 06/23/19 08:00 Glucophage PO Not Given BIDDIAB [facility] Ondansetron HCl 4 mg 06/21/19 23:40 Zofran IV Q8H PRN Nausea And Vomiting Sodium Chloride 10 ml 06/21/19 23:40 06/22/19 21:03 Sodium Chloride Flush Syringe 10 Ml IV 10 ml PRN PRN Administration LINE FLUSH
--- NOTE | 2019-06-23 12:19 | Progress Note ---
Assessment and Plan Impression 1-This is 53 ys old female presented yesterday with new onset of left leg weakness lasted X4 hours she just been discharged from hospital on of last month after she had right side weakness with CT finding of multiple CVA in left frontal,parietal and occipital . CTA last night is remarkable for possible occluded a branch of left MCA , exam today is remarkable for slight give away weakness on left arm and leg with the possibility of new CVA can not be excluded MRI brain confirm new onset right frontal CVA and possibly slight extension of the left sided frontal CVA , pt. just started taking her ASA 81 mg and plavix 75 mg on Wednesday ,she is with family hx CVD at young age . 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 had recurrent possibly embolic events and or referral to [place] for second opinion, mean while keep on ASA 81 mg and plavix 75 mg daily 3- Lipitor 80 mg. will follow as needed Subjective Date of service: 06/23/19 Principal diagnosis: left leg weakness Interval history: According to pt. she is doing better denied weakness MRI brain is remarkable for right frontal new event as well as possible left frontal volunteer patient representative showed no arrhythmia/AF so far ISA is remarkable for left atrial anurysm ? no thrombus is noted Objective - Vital Sign Vital Signs - 12hr 06/23/19 06/23/19 06/23/19 00:30 00:42 02:00 Temperature 98.2 F 98.2 F Pulse Rate 60 63 Pulse Rate [ From Monitor] Pulse Rate [ Intra-Procedure ] Pulse Rate [ Post-Procedure] Respiratory 20 20 Rate Respiratory Rate [Intra- Procedure] Respiratory Rate [Post- Procedure] Blood Pressure 137/79 Blood Pressure [Intra- Procedure] Blood Pressure [Post-Procedure ] Blood Pressure 137/79 [Right] O2 Sat by Pulse 100 Oximetry O2 Sat by Pulse Oximetry [ Intra-Procedure ] O2 Sat by Pulse Oximetry [Post -Procedure] 06/23/19 06/23/19 06/23/19 04:22 05:55 06:00 Temperature 98.0 F 98 F Pulse Rate 59 L 61 Pulse Rate [ From Monitor] Pulse Rate [ Intra-Procedure ] Pulse Rate [ Post-Procedure] Respiratory 20 20 Rate Respiratory Rate [Intra- Procedure] Respiratory Rate [Post- Procedure] Blood Pressure 151/78 Blood Pressure [Intra- Procedure] Blood Pressure [Post-Procedure ] Blood Pressure 151/78 [Right] O2 Sat by Pulse 99 Oximetry O2 Sat by Pulse Oximetry [ Intra-Procedure ] O2 Sat by Pulse Oximetry [Post -Procedure] 06/23/19 06/23/19 06/23/19 10:56 11:00 11:04 Temperature Pulse Rate Pulse Rate [ 55 L From Monitor] Pulse Rate [ 79 75 Intra-Procedure ] Pulse Rate [ Post-Procedure] Respiratory 20 Rate Respiratory 20 16 Rate [Intra- Procedure] Respiratory Rate [Post- Procedure] Blood Pressure Blood Pressure 162/91 149/84 [Intra- Procedure] Blood Pressure [Post-Procedure ] Blood Pressure [Right] O2 Sat by Pulse 95 Oximetry O2 Sat by Pulse 100 99 Oximetry [ Intra-Procedure ] O2 Sat by Pulse Oximetry [Post -Procedure] 06/23/19 06/23/19 06/23/19 11:07 11:10 11:12 Temperature Pulse Rate Pulse Rate [ From Monitor] Pulse Rate [ 91 H 93 H Intra-Procedure ] Pulse Rate [ 80 Post-Procedure] Respiratory Rate Respiratory 20 18 Rate [Intra- Procedure] Respiratory 20 Rate [Post- Procedure] Blood Pressure Blood Pressure 131/78 134/81 [Intra- Procedure] Blood Pressure 145/86 [Post-Procedure ] Blood Pressure [Right] O2 Sat by Pulse Oximetry O2 Sat by Pulse 90 97 Oximetry [ Intra-Procedure ] O2 Sat by Pulse 95 Oximetry [Post -Procedure] 06/23/19 11:28 Temperature Pulse Rate Pulse Rate [ From Monitor] Pulse Rate [ Intra-Procedure ] Pulse Rate [ 66 Post-Procedure] Respiratory Rate Respiratory Rate [Intra- Procedure] Respiratory 20 Rate [Post- Procedure] Blood Pressure Blood Pressure [Intra- Procedure] Blood Pressure 165/88 [Post-Procedure ] Blood Pressure [Right] O2 Sat by Pulse Oximetry O2 Sat by Pulse Oximetry [ Intra-Procedure ] O2 Sat by Pulse 100 Oximetry [Post -Procedure] - General Apperance Constitutional: comfortable - EENT EENT: PERRL - Respiratory Respiratory: chest non-tender - Cardiovascular Cardiovascular: regular rate, normal S1, normal S2 Extremities: no peripheral edema bilat - Gastrointestinal Gastrointestinal: normoactive bowel sounds - Integumentary Integumentary: normal - Neurologic Cranial nerve examination: PERRL, EOMI Speech examination: intact Detailed motor examination: other (slight left side clumsy when compared to right side) Detailed sensory examination: intact - Psychiatric Psychiatric: mood/affect appropriate, cooperative - Laboratory Findings CBC and BMP: 06/21/19 18:23 06/21/19 18:23 Abnormal Lab Findings: Abnormal Labs 06/21/19 06/21/19 06/21/19 18:23 18:23 20:31 Lymph % (Auto) 39.9 H POC Glucose 133 H Calcium 10.7 H Urine pH 06/21/19 06/22/19 06/23/19 20:47 20:10 08:52 Lymph % (Auto) POC Glucose 168 H 111 H Calcium Urine pH 8.0 H
--- NOTE | 2019-06-23 12:31 | Anesthesia Day of Surgery ---
Anesthesia Day of Surgery - Day of Surgery Patient Examined: Yes Patient H&P Reviewed: Yes Patient is NPO: Yes
--- NOTE | 2019-06-23 12:33 | Anesthesia Consultation ---
Anesthesia Consult and Med Hx Date of service: 06/23/19 - Airway Anesthetic Teeth Evaluation: Good ROM Head & Neck: Adequate Mental/Hyoid Distance: Adequate Mallampati Class: Class II Intubation Access Assessment: Good - Pre-Operative Health Status ASA Pre-Surgery Classification: ASA3 Proposed Anesthetic Plan: General, MAC - Pulmonary Hx Smoking: Yes (ex- smoker) Hx Asthma: No COPD: No Hx Pneumonia: No - Cardiovascular System Hx Hypertension: Yes - Central Nervous System CVA: Yes (Admitted with CVA) - Endocrine Hx End Stage Renal Disease: No Hx Non-Insulin Dependent Diabetes: Yes
--- NOTE | 2019-06-23 12:33 | Post Anesthesia Evaluation ---
- Post Anesthesia Evaluation Patient Participated: Yes Airway Patent: Yes Stable Respiratory Function: Yes Nausea/Vomiting: No Temp > 96.8F: Yes Pain Manageable: Yes Adequeate Hydration: Yes Anesthesia Complications: No Block Receding Appropriately: Not Applicable Patient on Ventilator: No
[2019-06-23] MEDS: CLOPIDOGREL 75 MG TAB PO SCH (13:46)
[2019-06-23] MEDS: ENOXAPARIN 40 MG/0.4 ML INJ SUB-Q SCH ×2 (13:47→15:45)
[2019-06-23] MEDS: ASPIRIN EC 81 MG TAB PO SCH (13:47)
[2019-06-23] MEDS: ESCITALOPRAM 10 MG TAB PO SCH (13:47)
[2019-06-23] MEDS ORDERED: diphenhydrAMINE 25 MG CAP PO PRN (22:08)
[2019-06-23] MEDS: APIXABAN 5 MG TAB PO SCH (22:16)
[2019-06-24 09:24] VITALS: BP 176/107
[2019-06-24] MEDS: APIXABAN 5 MG TAB PO SCH (09:24)
[2019-06-24] MEDS: metFORMIN 500 MG TAB PO SCH (09:24)
[2019-06-24] MEDS: glipiZIDE 10 MG TAB PO SCH (09:24)
[2019-06-24] MEDS: ESCITALOPRAM 10 MG TAB PO SCH (09:24)
[2019-06-24] MEDS: ASPIRIN EC 81 MG TAB PO SCH (09:24)
[2019-06-24] MEDS: ENOXAPARIN 40 MG/0.4 ML INJ SUB-Q SCH ×2 (09:25→09:26)
--- NOTE | 2019-06-24 13:18 | Discharge Summary ---
Providers - Providers Date of Admission: 06/21/19 22:35 Date of discharge: 06/24/19 Attending physician: GRAZYNA ANDRADE 06/21/19 23:40 Occupational Therapy Evaluate and Treat [CONS] Routine Comment: Reason For Exam: Neuro deficits Physical Therapy Evaluation and Treat [CONS] Routine Comment: Reason For Exam: Neuro deficits 06/22/19 00:42 Consult to Physician [CONS] Routine Comment: Consulting Provider: JONAH NEAL Physician Instructions: Reason For Exam: cva Primary care physician: LADLE CLEANER Hospitalization Condition: Good Hospital course: 53 -year-old woman with a history of stroke, hypertension, diabetes, hyperlipidemia comes emergency room with complaints of left-sided weakness, slurred speech. The patient was just discharged from the hospital on 06/16, she was evaluated for stroke, workup reviewed. She was started on aspirin, Plavix and statin, states that she is compliant with medications. She was supposed to follow with stroke clinic at [place] but she has not done so yet. Acute ischemic stroke: MRI revealed interval development of acute infarct along the high medial right frontal lobe. Cont ASA and Plavix. ISA completed by cardiology revealed normal LVEF with evidence of concentric LVH with no cardioembolic source. Outpatient cardiac follow-up is recommended for 30 day event monitor. -I discussed the case with both Cardiology and Neurology with regards to anticoagulation. Given that the pt has had recurrent possibly embolic events, there is some suspicion for possible silent afib. Therefore as noted above pt will need f/u with cardiology for the custodial monitoring. Eliquis started. Neurology recommends discontinuing plavix and keeping baby ASA HTN. BP control HLD. Statins DM II. Tight glycemic control, SSRI and accuchecks Total time spent on discharge, 32 mins Disposition: [id number] TO HOME OR SELFCARE - Discharge Diagnoses (1) Acute ischemic stroke Status: Acute (2) HTN (hypertension) Status: Chronic (3) Hyperlipidemia Status: Chronic (4) Diabetes mellitus type 2 in nonobese Status: Chronic Core Measure Documentation - Palliative Care Palliative Care/ Comfort Measures: Not Applicable - Core Measures Any of the following diagnoses?: stroke - Stroke Discharge Requirements Statin for LDL = or >70 mg/dl on DC: Yes Anticoag for atrial fib/atrial flutter: Not Applicable Antithrombotic for ischemic stroke: Yes Exam - Constitutional Vitals: Temp Pulse Resp BP Pulse Ox 97.8 F 63 18 176/107 100 12/07/19 09:12 06/24/19 09:12 06/24/19 09:12 06/24/19 09:12 06/24/19 09:12 Plan Activity: advance as tolerated Diet: low fat, low cholesterol, low salt Plan of Treatment: 1.Follow up with PCP in 3-5 days. 2.Follow up with Neurologist in 3-5 days 3.Follow up with Dr. Lopez, cardiology in 3-5 days to arrange 30day event monitor Follow up with: PADMINI LOPEZ MD [Staff Physician] - 7 Days PRIMARY CARE, [Primary Care Provider] - 3-5 Days Prescriptions: Apixaban [Eliquis] 5 mg PO Q12HR #60 tablet AtorvaSTATin [Lipitor] 80 mg PO QHS #60 tablet
[2019-06-27 14:07] LABS: ANA Screen, IFA Negative (Negative)
== END 2019-06-24 15:05 | disposition home or self-care (01) ==
LOC: ED 18:06 → 4A 22:35 → INTOOBSV 22:35 → 4A 23:01
PROVIDERS: ADMIT Internal Medicine; ATTEND Internal Medicine
DX: G45.9 Transient cerebral ischemic attack, unspecified (principal); I74.9 Embolism and thrombosis of unspecified artery; M62.81 Muscle weakness (generalized); E11.9 Type 2 diabetes mellitus without complications; I10 Essential (primary) hypertension; E78.5 Hyperlipidemia, unspecified; Z90.710 Acquired absence of both cervix and uterus; Z79.82 Long term (current) use of aspirin
CPT/HCPCS: 36415; 70450; 70496; 70498; 70551; 80048; 80061; 81001; 82550; 82962; 83735; 84484; 85025; 85610; 85652; 85670; 85730; 86038; 87116; 93005; 93010; 93312; 93320; 93325; 96372; 96374; 97161; 97165; 97530; 99284; A9270; G0378; J1650; J2704; J7040; Q9967

== ENCOUNTER 2019-08-16 13:49 | Observation (INO) | payer BC, MEDICARE ==
--- NOTE | 2019-08-16 14:02 | Event Note ---
ED Screening Note ED Screening Note: Mrs. Robison is a 53 yo female with hx of recurrent CVA on ASA eliquis who presents with left leg numbness. Recently dc'd last week for CVA. On eliquis and ASA. This initial assessment/diagnostic orders/clinical plan/treatment(s) is/are subject to change based on patients health status, clinical progression and re- assessment by fellow clinical providers in the ED. Further treatment and workup at subsequent clinical providers discretion. Patient/guardian urged not to elope from the ED as their condition may be serious if not clinically assessed and managed. Initial orders include:
[2019-08-16 14:47] LABS: Basophils # (Auto) 0.1 K/mm3 (0.0-0.1); Basophils % (Auto) 1.2 % (0.0-1.8); Eosinophils # (Auto) 0.2 K/mm3 (0.0-0.4); Eosinophils % (Auto) 2.3 % (0.0-4.3); Hematocrit 38.6 % (30.3-42.9); Hemoglobin 13.3 gm/dl (10.1-14.3); Lymphocytes # (Auto) 2.5 K/mm3 (1.2-5.4); Lymphocytes % (Auto) 34.7 % (13.4-35.0); Mean Corpuscular HGB Conc 35 % (30-34); Mean Corpuscular Volume 82 fl (79-97); Monocytes # (Auto) 0.4 K/mm3 (0.0-0.8); Monocytes % (Auto) 6.3 % (0.0-7.3); Platelet Count 358 K/mm3 (140-440); Red Blood Count 4.74 M/mm3 (3.65-5.03); Red Cell Distribution Width 13.6 % (13.2-15.2)
--- NOTE | 2019-08-16 14:50 | Cat Scan Report ---
CT HEAD WITHOUT CONTRAST INDICATION / CLINICAL INFORMATION: Stroke symptoms. TECHNIQUE: All CT scans at this location are performed using CT dose reduction for ALARA by means of automated e xposure control. COMPARISON: Head CT 06/21/2019 and MRI brain 06/26/2019 FINDINGS: HEMORRHAGE: No evidence of intracranial hemorrhage or extra-axial fluid collection. EXTRA-AXIAL SPACES: Ex vacuo dilatation of cortical sulci is observed adjacent to the left frontal, p arietal and occipital lobes. Findings appear stable in comparison to previous study 06/21/2019. Cortic al sulci, sylvian fissures and basilar cisterns have an otherwise unremarkable appearance. VENTRICULAR SYSTEM: The ventricular system is of normal size and configuration. CEREBRAL PARENCHYMA: Macrocystic encephalomalacia is observed at the site of patient's previous left middle cerebral artery infarctions. Recent MRI brain 06/22/2019 findings flexion at the vertex of the right frontal lobe in an anterior cerebral artery lesion. Area of encephalomalacia is now demonstrate d in this location. MIDLINE SHIFT OR HERNIATION: There is no mass effect. CEREBELLUM / BRAINSTEM: Brainstem and cerebellum have an unremarkable appearance. INTRACRANIAL VESSELS:No abnormalities are identified on this noncontrast head CT. ORBITS: visualized portions of the orbits have an unremarkable appearance. SOFT TISSUES of HEAD: No significant abnormality. CALVARIUM: Evaluation of bone windows reveals no abnormalities. PARANASAL SINUSES / MASTOID AIR CELLS: Paranasal sinuses are free from inflammatory mucosal disease. Mastoid air cells are normally pneumatized. IMPRESSION: 1. Large areas of macrocystic encephalomalacia are demonstrated in association with remote large infa rctions involving the left cerebral hemisphere in a left MCA distribution. 2. Small area of encephalomalacia at the right frontal lobe vertex secondary to recently demonstrated right anterior cerebral artery infarction. 3. No acute intracranial abnormalities are identified. Signer Name: Catalino Matthews MD Signed: 08/16/2019 2:45 PM Workstation Name: [id number]
[2019-08-16 15:12] LABS: Alanine Aminotransferase 23 units/L (7-56); Albumin 4.9 g/dL (3.9-5); BUN/Creatinine Ratio 13; Blood Urea Nitrogen 13 mg/dL (7-17); Calcium 10.8 mg/dL (8.4-10.2); Hemolysis Index 11
[2019-08-16] MEDS ORDERED: ASPIRIN 81 MG TAB CHEW PO ONE (16:55)
--- NOTE | 2019-08-16 16:55 | Emergency Department Report ---
ED Neuro Deficit HPI - General Chief Complaint: Neuro Symptoms/Deficit Stated Complaint: LT SIDE NUMBNESS Time Seen by Provider: 08/16/19 15:00 Source: patient Mode of arrival: Ambulatory Limitations: No Limitations - History of Present Illness Initial Comments: patient is a 53-year-old female presents emergency room with complaints of left leg numbness that began last night around 7 PM. She states that she was just playing around with her grandchild on the bed when it just suddenly went numb. States that the leg also became weak and it was dragging behind her when she was trying to walk. The weakness has improved but she continues to have left leg numbness and feels like her leg is asleep. She denies any vision changes, speech disturbance, take, shortness of breath, chest pain, nausea, vomiting, diarrhea. She has a past medical history of CVA 2 and is on eliquis and low- dose aspirin. - Related Data Home Medications: Home Medications Medication Instructions Recorded Confirmed Last Taken Escitalopram [Lexapro] 10 mg PO DAILY 11/19/16 08/16/19 1 Day Ago ~06/14/19 Glipizide/Metformin HCl 2 tab PO BID 11/19/16 08/16/19 1 Day Ago [glipiZIDE-Metformin 5-500 mg] ~06/14/19 NIFEdipine XL [Procardia Xl] 30 mg PO QDAY 11/19/16 08/16/19 1 Day Ago ~06/14/19 traZODone [Desyrel] 100 mg PO DAILY 11/19/16 08/17/19 11/19/16 Hydrochlorothiazide 12.5 mg PO DAILY 06/14/19 08/16/19 1 Day Ago ~06/14/19 Iron [Iron 18 MG TAB] 18 mg PO QDAY 08/16/19 08/16/19 Unknown Previous Rx's Medication Instructions Recorded Last Taken Type Aspirin EC [Halfprin EC] 81 mg PO QDAY #30 tablet 06/16/19 Unknown Rx AtorvaSTATin [Lipitor] 80 mg PO QHS #60 tablet 06/24/19 Unknown Rx Rivaroxaban [Xarelto] 20 mg PO QDAY #30 tab 08/18/19 Unknown Rx Allergies/Adverse Reactions: Allergies Allergy/AdvReac Type Severity Reaction Status Date / Time No Known Allergies Allergy Verified 06/21/19 18:07 ED Review of Systems ROS: Stated complaint: LT SIDE NUMBNESS Other details as noted in HPI Comment: All other systems reviewed and negative ED Past Medical Hx - Past Medical History Previous Medical History?: Yes Hx Hypertension: Yes Hx CVA: Yes Hx Congestive Heart Failure: No Hx Diabetes: Yes Hx Asthma: No Hx COPD: No Hx HIV: No Additional medical history: hyperlipidemia - Surgical History Past Surgical History?: Yes Additional Surgical History: hysterectomy, UFE x2 - Social History Smoking Status: Never Smoker Substance Use Type: None - Medications Home Medications: Home Medications Medication Instructions Recorded Confirmed Last Taken Type Escitalopram [Lexapro] 10 mg PO DAILY 11/19/16 08/16/19 1 Day Ago History ~06/14/19 Glipizide/Metformin HCl 2 tab PO BID 11/19/16 08/16/19 1 Day Ago History [glipiZIDE-Metformin 5-500 mg] ~06/14/19 NIFEdipine XL [Procardia Xl] 30 mg PO QDAY 11/19/16 08/16/19 1 Day Ago History ~06/14/19 traZODone [Desyrel] 100 mg PO DAILY 11/19/16 08/17/19 11/19/16 History Hydrochlorothiazide 12.5 mg PO DAILY 06/14/19 08/16/19 1 Day Ago History ~06/14/19 Aspirin EC [Halfprin EC] 81 mg PO QDAY #30 tablet 06/16/19 08/16/19 Unknown Rx AtorvaSTATin [Lipitor] 80 mg PO QHS #60 tablet 06/24/19 08/16/19 Unknown Rx Iron [Iron 18 MG TAB] 18 mg PO QDAY 08/16/19 08/16/19 Unknown History Rivaroxaban [Xarelto] 20 mg PO QDAY #30 tab 08/18/19 Unknown Rx ED Neuro Physical Exam - General Limitations: No Limitations General appearance: alert, in no apparent distress Suspected Stroke: Yes - Head Head exam: Present: atraumatic, normocephalic - Eye Eye exam: Present: normal appearance, PERRL, EOMI - ENT ENT exam: Present: mucous membranes moist - Respiratory Respiratory exam: Present: normal lung sounds bilaterally. Absent: respiratory distress, wheezes, rales, rhonchi, stridor, chest wall tenderness, accessory muscle use, decreased breath sounds, prolonged expiratory - Cardiovascular Cardiovascular Exam: Present: regular rate, normal rhythm, normal heart sounds. Absent: systolic murmur, diastolic murmur, rubs, gallop - Neurological Exam Neurological exam: Present: alert, oriented X3, CN II-XII intact, normal gait. Absent: motor sensory deficit - NIHSS Assessment Interval: Baseline 1a. Level of Consciousness: alert/keenly responsive 1b. LOC Questions: answers both correctly 1c. LOC Commands: performs tasks correctly 2. Best Gaze: normal 3. Visual: no visual loss 4. Facial Palsy: normal symmetrical movement 5b. Motor Arm Right: no drift 5a. Motor Arm Left: no drift 6a. Motor Leg Left: no drift 6b. Motor Leg Right: no drift 7. Limb Ataxia: absent 8. Sensory: normal 9. Best Language: no aphasia 10. Dysarthria: normal 11. Extinction/Inattention: no abnormality Total Score: 0 Stroke Severity: No Stroke Symptoms - Psychiatric Psychiatric exam: Present: normal affect, normal mood - Skin Skin exam: Present: warm, dry, intact ED Course Vital Signs 08/16/19 08/16/19 08/16/19 13:58 13:59 14:30 Temperature 98.2 F Pulse Rate 68 68 Respiratory 18 16 13 Rate Blood Pressure 114/75 110/74 O2 Sat by Pulse 100 99 Oximetry 08/16/19 08/16/19 08/16/19 15:30 17:30 17:40 Temperature Pulse Rate 67 58 L 77 Respiratory 15 16 10 L Rate Blood Pressure 110/74 120/82 120/82 O2 Sat by Pulse 97 100 96 Oximetry 08/16/19 08/16/19 08/16/19 17:50 18:00 18:10 Temperature Pulse Rate 61 64 61 Respiratory 19 20 19 Rate Blood Pressure 120/82 110/68 110/68 O2 Sat by Pulse 97 94 97 Oximetry 08/16/19 08/16/19 18:20 18:30 Temperature Pulse Rate 61 60 Respiratory 15 15 Rate Blood Pressure 110/68 110/68 O2 Sat by Pulse 98 96 Oximetry - Consultations Consultation #1: 08/16/19 16:[address] Bo, hospitalist who accepts and resumes care of patient, will admit to the hospital - Lab Data Result diagrams: 08/16/19 14:35 08/17/19 08:54 Lab Results 01/29/20 01/29/20 01/29/20 Range/Units 14:08 14:35 14:35 WBC 7.1 (4.5-11.0) K/mm3 RBC 4.74 (3.65-5.03) M/mm3 Hgb 13.3 (10.1-14.3) gm/dl Hct 38.6 (30.3-42.9) % MCV 82 (79-97) fl MCH 28 (28-32) pg MCHC 35 H (30-34) % RDW 13.6 (13.2-15.2) % Plt Count 358 (140-440) K/mm3 Lymph % (Auto) 34.7 (13.4-35.0) % Atkinson % (Auto) 6.3 (0.0-7.3) % Eos % (Auto) 2.3 (0.0-4.3) % Baso % (Auto) 1.2 (0.0-1.8) % Lymph # 2.5 (1.2-5.4) K/mm3 Atkinson # 0.4 (0.0-0.8) K/mm3 Eos # 0.2 (0.0-0.4) K/mm3 Baso # 0.1 (0.0-0.1) K/mm3 Seg Neutrophils % 55.5 (40.0-70.0) % Seg Neutrophils # 3.9 (1.8-7.7) K/mm3 Sodium 143 (137-145) mmol/L Potassium 3.6 (3.6-5.0) mmol/L Chloride 101.7 (98-107) mmol/L Carbon Dioxide 27 (22-30) mmol/L Anion Gap 18 mmol/L BUN 13 (7-17) mg/dL Creatinine 1.0 (0.7-1.2) mg/dL Estimated GFR > 60 ml/min BUN/Creatinine Ratio 13 % Glucose 115 H (65-100) mg/dL POC Glucose 106 H (70-105) Calcium 10.8 H (8.4-10.2) mg/dL Total Bilirubin 0.40 (0.1-1.2) mg/dL AST 25 (5-40) units/L ALT 23 (7-56) units/L Alkaline Phosphatase 121 (35-129) units/L Troponin T < 0.010 (0.00-0.029) ng/mL Total Protein 8.6 H (6.3-8.2) g/dL Albumin 4.9 (3.9-5) g/dL Albumin/Globulin Ratio 1.3 % - EKG Data EKG shows normal: sinus rhythm, intervals Rate: normal 08/16/19 17:23 RAD non specific T wave inversion diffusely no STEMI - Radiology Data Radiology results: report reviewed CT HEAD WITHOUT CONTRAST INDICATION / CLINICAL INFORMATION: Stroke symptoms. TECHNIQUE: All CT scans at this location are performed using CT dose reduction for ALARA by means of automated exposure control. COMPARISON: Head CT 06/21/2019 and MRI brain 06/26/2019 FINDINGS: HEMORRHAGE: No evidence of intracranial hemorrhage or extra-axial fluid collection. EXTRA-AXIAL SPACES: Ex vacuo dilatation of cortical sulci is observed adjacent to the left frontal, parietal and occipital lobes. Findings appear stable in comparison to previous study 06/21/2019. Cortical sulci, sylvian fissures and basilar cisterns have an otherwise unremarkable appearance. VENTRICULAR SYSTEM: The ventricular system is of normal size and configuration. CEREBRAL PARENCHYMA: Macrocystic encephalomalacia is observed at the site of patient's previous left middle cerebral artery infarctions. Recent MRI brain 06/22/2019 findings flexion at the vertex of the right frontal lobe in an anterior cerebral artery lesion. Area of encephalomalacia is now demonstrated in this location. MIDLINE SHIFT OR HERNIATION: There is no mass effect. CEREBELLUM / BRAINSTEM: Brainstem and cerebellum have an unremarkable appearance. INTRACRANIAL VESSELS:No abnormalities are identified on this noncontrast head CT. ORBITS: visualized portions of the orbits have an unremarkable appearance. SOFT TISSUES of HEAD: No significant abnormality. CALVARIUM: Evaluation of bone windows reveals no abnormalities. PARANASAL SINUSES / MASTOID AIR CELLS: Paranasal sinuses are free from inflammatory mucosal disease. Mastoid air cells are normally pneumatized. IMPRESSION: 1. Large areas of macrocystic encephalomalacia are demonstrated in association with remote large infarctions involving the left cerebral hemisphere in a left MCA distribution. 2. Small area of encephalomalacia at the right frontal lobe vertex secondary to recently demonstrated right anterior cerebral artery infarction. 3. No acute intracranial abnormalities are identified. Signer Name: Catalino Matthews MD Signed: 08/16/2019 2:45 PM Workstation Name: [id number] Transcribed By: Dictated By: Catalino Matthews MD Electronically Authenticated By: Catalino Matthews MD Signed Date/Time: 08/16/19 1445 DD/ 1438 TD/TT: - Medical Decision Making patient is a 53-year-old female presents emergency room with complaints of left leg numbness that began last night around 7 PM. She states that she was just playing around with her grandchild on the bed when it just suddenly went numb. States that the leg also became weak and it was dragging behind her when she was trying to walk. The weakness has improved but she continues to have left leg numbness and feels like her leg is asleep. She denies any vision changes, speech disturbance, take, shortness of breath, chest pain, nausea, vomiting, diarrhea. She has a past medical history of CVA 2 and is on eliquis and low- dose aspirin. vitals are normal. no neuro deficits on exam. NIH scale is 0. she states that she continues to feel that the leg is numb but does not have sensory deficit on exam to touch or pinch. CT head: 1. Large areas of macrocystic encephalomalacia are demonstrated in association with remote large infarctions involving the left cerebral hemisphere in a left MCA distribution. 2. Small area of encephalomalacia at the right frontal lobe vertex secondary to recently demonstrated right anterior cerebral artery infarction. 3. No acute intracranial abnormalities are identified. given recent history of CVA x2 with possibility of silent afib causing embolic events according to prior chart, and that pt had sudden onset of left leg numbness and continues to have numbness pt will be admitted to hospitalist service for further evaluation. - Differential Diagnosis CVA, TIA, mass, ICH, SDH, SAH, MS, neuropathy Critical care attestation.: If time is entered above; I have spent that time in minutes in the direct care of this critically ill patient, excluding procedure time. ED Disposition Clinical Impression: Left leg numbness, History of CVA (cerebrovascular accident) Disposition: OP ADMIT IP TO THIS HOSP Is pt being admited?: Yes Does the pt Need Aspirin: Yes Condition: Fair Time of Disposition: 16:55
[2019-08-16 17:15] LABS: Bacteria,Urine 1+ /HPF (Negative); Bilirubin,Urine NEG (Negative); Blood,Urine MOD (Negative); Color,Urine Colorless (Yellow); Protein,Urine <15 mg/dL mg/dL (Negative); Urobilinogen,Urine < 2.0 mg/dL (<2.0)
[2019-08-17] MEDS: APIXABAN 5 MG TAB PO SCH ×2 (00:39→09:42)
[2019-08-17] MEDS ORDERED: TEMAZEPAM 15 MG CAP PO ONE (01:33)
--- NOTE | 2019-08-17 07:58 | Event Note ---
Date: 08/16/19 TIA W/u for TIA Admitted in obs status
--- NOTE | 2019-08-17 08:23 | History and Physical Report ---
CHIEF COMPLAINT: Left leg numbness since last night 7 p.m. HISTORY OF PRESENT ILLNESS: A 53-year-old female with a recent stroke, comes in for left leg numbness that began around 7:00 p.m. She was playing with her grandchild and left leg suddenly went numb and slightly weak making her drag while walking. The patient had a recent stroke x 2 and is on Eliquis and low-dose aspirin. Recent discharge summary was evaluated. The patient had a stroke on the left side. The patient had a brain MRI on 06/22/2019, which showed acute infarct along the medial right frontal lobe. The patient has persistent lower extremity weakness and left lower extremity numbness since admission. PAST MEDICAL HISTORY: Significant for hypertension, type 2 diabetes and CVA with slight residual weakness on the left side. PAST SURGICAL HISTORY: Hysterectomy. SOCIAL HISTORY: Never a smoker. FAMILY HISTORY: Hypertension. REVIEW OF SYSTEMS: Significant for left-sided numbness and slight weakness. PHYSICAL EXAMINATION: GENERAL: Middle-aged female, pleasant. VITAL SIGNS: Blood pressure is 106/63, temperature is 97.4, pulse is 68, respirations are 18. HEENT: Unremarkable. Pupils equal and reactive. NECK: Supple, no lymphadenopathy, no thyromegaly. LUNGS: Clear to auscultation and percussion. Good air entry. CARDIOVASCULAR: S1, S2 heard. No gallop, no murmur, no rub. Apical impulse in left fifth intercostal space and midclavicular line. ABDOMEN: Soft and benign. No guarding, no rigidity. Hernial orifices are normal. EXTREMITIES: Good pedal pulses. No pedal edema. CENTRAL NERVOUS SYSTEM: Alert and oriented x 4, nonfocal exam. Left lower extremity, slight weakness present, 4/5 power. Sensation system: Normal. SKIN: Normal. LABORATORY DATA: Normal. Glucose is slightly high 115. Urine normal. CT of the head shows large areas of macrocytic encephalomalacia and remote large infarctions involving the left cerebellar and left MCA distribution, small area of encephalomalacia in the right frontal lobe vertex secondary to recently demonstrated right anterior cerebral artery infarction. ASSESSMENT AND PLAN: 1. Acute cerebrovascular accident. Stroke workup. MRI initiated. The patient recently had CT angiogram of the neck and head on 06/21/2019, hence MRA is not requested. Also, EKG was not requested because of the recent EKG being done and recent carotid duplex scan being done. Only MRI brain was ordered. Neurology consult requested. 2. Hypertension. Continue antihypertensives. 3. Type 2 diabetes. Continue hypoglycemics and coverage. 4. Deep venous thrombosis prophylaxis. The patient is already on Eliquis and aspirin. Continue same. 5. Deep venous thrombosis prophylaxis and also gastrointestinal prophylaxis initiated. In summary, the patient has possible recurrent acute CVA, may be embolic because of the recent multiple strokes. The patient had a transesophageal echocardiogram, which did not show any emboli. EF was 60-65%. No thrombus visualized in the left atrial appendage. In summary, the patient has acute CVA, possibly secondary to embolic and hypertension and diabetes. JOB# [id number] MRAINA/AMY BRIDGES
[2019-08-17] MEDS: hydroCHLOROthiazide 12.5 MG CAP PO SCH (09:42)
[2019-08-17] MEDS: NIFEdipine XL 30 MG TAB PO SCH (09:42)
[2019-08-17] MEDS: glipiZIDE 10 MG TAB PO SCH ×2 (09:42→18:10)
[2019-08-17] MEDS: ASPIRIN EC 81 MG TAB PO SCH (09:42)
[2019-08-17] MEDS: metFORMIN 500 MG TAB PO SCH ×2 (09:42→18:09)
[2019-08-17] MEDS: ESCITALOPRAM 10 MG TAB PO SCH (09:42)
[2019-08-17 09:51] LABS: BUN/Creatinine Ratio 18; Blood Urea Nitrogen 16 mg/dL (7-17); Hemolysis Index 6
[2019-08-17] MEDS ORDERED: IRON 18 MG PO SCH (10:00)
[2019-08-17] MEDS ORDERED: NON-FORMULARY EACH (Hydrochlorothiazide 12.5 MG) PO SCH (10:00)
--- NOTE | 2019-08-17 10:51 | Vascular Lab Report ---
Bilateral carotid Doppler. HISTORY: TIA. FINDINGS: Duplex Doppler evaluation of the carotid system was performed with spectral waveform analys is. Antegrade vertebral flow is present bilaterally. Peak systolic velocity at the right internal carotid artery is 67 cm/s. Systolic velocity ratio is 1. 1. Peak systolic velocity at the left internal carotid artery is 100 cm/s. Systolic velocity ratio is 2. 2. Grayscale imaging demonstrates no flow limiting stenosis. IMPRESSION: Stenosis less than 50% bilaterally per NASCET criteria. Signer Name: Wesley Kimbrough MD Signed: 08/17/2019 10:46 AM Workstation Name: [id number]
[2019-08-17 13:36] LABS: Chol/HDL Ratio 2.2 %
--- NOTE | 2019-08-17 13:59 | Magnetic Resonance Report ---
MRI BRAIN 08/17/2019 INDICATION / CLINICAL INFORMATION: TIA-poss discharge today. TECHNIQUE: Multiplanar, multisequence MR images of the brain were obtained. COMPARISON: 06/22/2019 FINDINGS: BRAIN / INTRACRANIAL CONTENTS: Unenhanced MR images of the brain were obtained and compared to a prio r exam from 06/22/2019. Again seen are large areas of chronic encephalomalacia in the left hemisphere, consistent with prior ischemic or traumatic brain injury. On the prior exam, there is some evidence of superimposed acute ischemic change in the high right med ial frontal lobe. On the current exam, the hyperacute changes seen on the prior exam have resolved. However, there is a 1 cm area of restricted diffusion also present in the high medial right frontal lobe, although in a slightly different location (slightly posterior) to the area of diffusion abnormality seen on the MRI from 06/22/2019. This indicates that there has been an additional small focus of ischemic injury sinc e the prior exam. No other areas of restricted diffusion or abnormal diffusion weighted signal are pr esent. There is no evidence of hemorrhage or mass. Ventricles and sulci remain normal in size and shape, with the exception of the areas of encephalomal acia on the left side as described above. Extensive chronic white matter T2 weighted hyperintensities are present bilaterally. EXTRACRANIAL: Unremarkable CRANIOCERVICAL JUNCTION: No significant abnormality. VASCULAR FLOW-VOIDS: No significant abnormality. IMPRESSION: 1. Extensive chronic changes as described above. 2. Small focal area of restricted diffusion in medial right frontal lobe, slightly posterior to the a cute ischemic change noted on the MRI from 06/22/2019. See above discussion. Signer Name: Darvin Jennings MD Signed: 08/17/2019 1:54 PM Workstation Name: [id number]
--- NOTE | 2019-08-17 16:40 | Progress Note ---
Assessment and Plan Assessment and plan: Acute ischemic stroke MRI confirmss new stroke Patient was already on aspirin and Eliquis because of 2 previous strokes. She states she has been compliant with meds Hypertension diabetes mellitus type 2 accucheck qac and hs full code History Interval history: Numbness left leg Hospitalist Physical - Physical exam Narrative exam: GEN: Not in acute distress, lying in bed, HEENT: Normocephalic, atraumatic, Neck: supple, No JVD Lungs: Clear to auscultation bilat, no wheeze, heart;S1 and S2 reg, no murmurs, rubs or gallop Abd:soft, non tender, non distended, normal bowel sounds Ext: No edema, no clubbing, no cyanosis Neuro: AAO X 3, moves all ext, paresthesia left leg - Constitutional Vitals: Temp Pulse Resp BP Pulse Ox 98.0 F 50 L 16 108/62 99 08/17/19 07:58 08/17/19 07:58 08/17/19 07:58 08/17/19 07:58 08/17/19 07:58 Results - Labs CBC & Chem 7: 08/16/19 14:35 08/17/19 08:54 Labs: Laboratory Last Values WBC 7.1 K/mm3 (4.5-11.0) 08/16/19 14:35 RBC 4.74 M/mm3 (3.65-5.03) 08/16/19 14:35 Hgb 13.3 gm/dl (10.1-14.3) 08/16/19 14:35 Hct 38.6 % (30.3-42.9) 08/16/19 14:35 MCV 82 fl (79-97) 08/16/19 14:35 MCH 28 pg (28-32) 08/16/19 14:35 MCHC 35 % (30-34) H 08/16/19 14:35 RDW 13.6 % (13.2-15.2) 08/16/19 14:35 Plt Count 358 K/mm3 (140-440) 08/16/19 14:35 Lymph % (Auto) 34.7 % (13.4-35.0) 08/16/19 14:35 [place] % (Auto) 6.3 % (0.0-7.3) 08/16/19 14:35 Eos % (Auto) 2.3 % (0.0-4.3) 08/16/19 14:35 Baso % (Auto) 1.2 % (0.0-1.8) 08/16/19 14:35 Lymph # 2.5 K/mm3 (1.2-5.4) 08/16/19 14:35 [place] # 0.4 K/mm3 (0.0-0.8) 08/16/19 14:35 Eos # 0.2 K/mm3 (0.0-0.4) 08/16/19 14:35 Baso # 0.1 K/mm3 (0.0-0.1) 08/16/19 14:35 Seg Neutrophils % 55.5 % (40.0-70.0) 08/16/19 14:35 Seg Neutrophils # 3.9 K/mm3 (1.8-7.7) 08/16/19 14:35 Sodium 144 mmol/L (137-145) 08/17/19 08:54 Potassium 3.6 mmol/L (3.6-5.0) 08/17/19 08:54 Chloride 103.1 mmol/L (98-107) 08/17/19 08:54 Carbon Dioxide 26 mmol/L (22-30) 08/17/19 08:54 Anion Gap 19 mmol/L 08/17/19 08:54 BUN 16 mg/dL (7-17) 08/17/19 08:54 Creatinine 0.9 mg/dL (0.7-1.2) 08/17/19 08:54 Estimated GFR > 60 ml/min 08/17/19 08:54 BUN/Creatinine Ratio 18 % 08/17/19 08:54 Glucose 103 mg/dL (65-100) H 08/17/19 08:54 POC Glucose 86 (70-105) 08/17/19 08:07 Calcium 10.0 mg/dL (8.4-10.2) 08/17/19 08:54 Total Bilirubin 0.40 mg/dL (0.1-1.2) 08/16/19 14:35 AST 25 units/L (5-40) 08/16/19 14:35 ALT 23 units/L (7-56) 08/16/19 14:35 Alkaline Phosphatase 121 units/L (35-129) 08/16/19 14:35 Troponin T < 0.010 ng/mL (0.00-0.029) 08/16/19 14:35 Total Protein 8.6 g/dL (6.3-8.2) H 08/16/19 14:35 Albumin 4.9 g/dL (3.9-5) 08/16/19 14:35 Albumin/Globulin Ratio 1.3 % 08/16/19 14:35 Triglycerides 49 mg/dL (2-149) 08/17/19 08:54 Cholesterol 148 mg/dL (50-199) 08/17/19 08:54 LDL Cholesterol Direct 76 mg/dL (50-130) 08/17/19 08:54 HDL Cholesterol 67 mg/dL (40-59) H 08/17/19 08:54 Cholesterol/HDL Ratio 2.20 % 08/17/19 08:54 Urine Color Colorless (Yellow) 08/16/19 17:01 Urine Turbidity Clear (Clear) 08/16/19 17:01 Urine pH 7.0 (5.0-7.0) 08/16/19 17:01 Ur Specific [place] 1.005 (1.003-1.030) 08/16/19 17:01 Urine Protein <15 mg/dl mg/dL (Negative) 08/16/19 17:01 Urine Glucose (UA) Neg mg/dL (Negative) 08/16/19 17:01 Urine Ketones Neg mg/dL (Negative) 08/16/19 17:01 Urine Blood Mod (Negative) 08/16/19 17:01 Urine Nitrite Neg (Negative) 08/16/19 17:01 Urine Bilirubin Neg (Negative) 08/16/19 17:01 Urine Urobilinogen < 2.0 mg/dL (<2.0) 08/16/19 17:01 Ur Leukocyte Esterase Neg (Negative) 08/16/19 17:01 Urine WBC (Auto) 1.0 /HPF (0.0-6.0) 08/16/19 17:01 Urine RBC (Auto) 6.0 /HPF (0.0-6.0) 08/16/19 17:01 U Epithel Cells (Auto) < 1.0 /HPF (0-13.0) 08/16/19 17:01 Urine Bacteria (Auto) 1+ /HPF (Negative) 08/16/19 17:01 Active Medications - Current Medications Current Medications: Generic Name Dose Route Start Last Admin Trade Name Lynnette PRN Reason Stop Dose Admin Apixaban 5 mg 08/16/19 22:00 08/17/19 09:42 Eliquis PO 5 mg Q12HR RONALDO Administration Protocol Aspirin 81 mg 08/17/19 10:00 08/17/19 09:42 Halfprin Ec PO 81 mg QDAY RONALDO Administration Atorvastatin Calcium 80 mg 08/17/19 22:00 Lipitor PO QHS RONALDO Escitalopram Oxalate 10 mg 08/17/19 10:00 08/17/19 09:42 Lexapro PO 10 mg DAILY RONALDO Administration Glipizide 10 mg 08/17/19 08:00 08/17/19 09:42 Glucotrol PO 10 mg BIDDIAB RONALDO Administration Hydrochlorothiazide 12.5 mg 08/17/19 10:00 08/17/19 09:42 Hctz PO 12.5 mg QDAY RONALDO Administration Metformin HCl 1,000 mg 08/17/19 08:00 08/17/19 09:42 Glucophage PO 1,000 mg BIDDIAB RONALDO Administration Nifedipine 30 mg 08/17/19 10:00 08/17/19 09:42 Procardia Xl PO 30 mg QDAY RONALDO Administration
--- NOTE | 2019-08-17 18:42 | Consultation ---
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 Patient reportedly has had 2 strokes in the past, the first one being in May 2018 involving the left MCA territory, the second one being in June 2019 involving right EMMA territory. After the first stroke, patient was reportedly on aspirin and Plavix, however still had a second stroke in June 2019. In June 2019, she was switched to aspirin and Eiliquis. The patient states that she had been compliant with aspirin and Eliquis. She presents yesterday with symptoms of left lower extremity numbness, which it started around 7 PM. Patient was brought to [facility] for further evaluation. Past History Past Medical History: other (history of 2 CVA's with residual left sided mild weakness, hypertension, diabetes, hyperlipidemia) Social history: lives with family Family history: no significant family history Medications and Allergies Allergies Allergy/AdvReac Type Severity Reaction Status Date / Time No Known Allergies Allergy Verified 06/21/19 18:07 Home Medications Medication Instructions Recorded Confirmed Last Taken Type Escitalopram [Lexapro] 10 mg PO DAILY 11/19/16 08/16/19 1 Day Ago History ~06/14/19 Glipizide/Metformin HCl 2 tab PO BID 11/19/16 08/16/19 1 Day Ago History [glipiZIDE-Metformin 5-500 mg] ~06/14/19 NIFEdipine XL [Procardia Xl] 30 mg PO QDAY 11/19/16 08/16/19 1 Day Ago History ~06/14/19 traZODone [Desyrel] 100 mg PO 4XD 11/19/16 08/16/19 11/19/16 History Hydrochlorothiazide 12.5 mg PO DAILY 06/14/19 08/16/19 1 Day Ago History ~06/14/19 Aspirin EC [Halfprin EC] 81 mg PO QDAY #30 tablet 06/16/19 08/16/19 Unknown Rx Apixaban [Eliquis] 5 mg PO Q12HR #60 tablet 06/24/19 08/16/19 Unknown Rx AtorvaSTATin [Lipitor] 80 mg PO QHS #60 tablet 06/24/19 08/16/19 Unknown Rx Iron [Iron 18 MG TAB] 18 mg PO QDAY 08/16/19 08/16/19 Unknown History Active Meds: Active Medications Apixaban (Eliquis) 5 mg PO Q12HR [facility]; Protocol Last Admin: 08/17/19 09:42 Dose: 5 mg Documented by: Aspirin (Halfprin Ec) 81 mg PO QDAY [facility] Last Admin: 08/17/19 09:42 Dose: 81 mg Documented by: Atorvastatin Calcium (Lipitor) 80 mg PO QHS [facility] Escitalopram Oxalate (Lexapro) 10 mg PO DAILY [facility] Last Admin: 08/17/19 09:42 Dose: 10 mg Documented by: Glipizide (Glucotrol) 10 mg PO BIDDIAB [facility] Last Admin: 08/17/19 18:10 Dose: 10 mg Documented by: Hydrochlorothiazide (Hctz) 12.5 mg PO QDAY [facility] Last Admin: 08/17/19 09:42 Dose: 12.5 mg Documented by: Metformin HCl (Glucophage) 1,000 mg PO BIDDIAB [facility] Last Admin: 08/17/19 18:09 Dose: 1,000 mg Documented by: Nifedipine (Procardia Xl) 30 mg PO QDAY [facility] Last Admin: 08/17/19 09:42 Dose: 30 mg Documented by: Review of Systems All systems: negative Neurological: numbness Physical Examination - Vital Signs Vital Signs: Vital Signs Temp Pulse Resp BP Pulse Ox 98.2 F 68 18 114/75 100 08/16/19 13:58 08/16/19 13:58 08/16/19 13:58 08/16/19 13:58 08/16/19 13:58 - Physical Exam Narrative exam: Patient is alert, awake, oriented x4, follows complex commands. PERRL, EOMI, VFF, no facial weakness noted, tongue midline, b/l intact to LT. No dysarthria or aphasia noted. RUE 4/5, LUE/LLE 5/5, RLE 4/5. Mildly decreased on LLE to LT. B/l intact to FTN and HTS. 2+ reflexes throughout. - Constitutional General appearance: comfortable - EENT EENT: Present: ATNC, PERRL, mucous membranes moist, hearing intact, vision intact - Respiratory Respiratory: Present: lungs clear, normal breath sounds - Cardiovascular Cardiovascular: Present: regular rate, normal S1, normal S2 Extremities: Present: no clubbing, cyanosis, no inflammation - Gastrointestinal Gastrointestinal: Present: normoactive bowel sounds, soft, non-tender - Integumentary Integumentary: Present: normal - Musculoskeletal Musculoskeletal: Present: no fluid collection, no pain - Psychiatric Psychiatric: Present: mood/affect appropriate - Level of Consciousness 1a. Level of Consciousness: alert/keenly responsive - LOC Questions 1b. LOC Questions: answers both correctly - LOC Command 1c. LOC Commands: performs tasks correctly - Best Gaze 2. Best Gaze: normal - Visual 3. Visual: no visual loss - Facial Palsy 4. Facial Palsy: normal symmetrical movement - Motor Arm 5a. Motor Arm Left: no drift 5b. Motor Arm Right: no drift - Motor Leg 6a. Motor Leg Left: no drift 6b. Motor Leg Right: no drift - Limb Ataxia 7. Limb Ataxia: absent - Sensory 8. Sensory: mild/moderate sensory loss - Best Language 9. Best Language: no aphasia - Dysarthria 10. Dysarthria: normal - Extinction and Inattention 11. 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 According the patient's clinical findings, the patient has had an acute ischemic stroke as is evidenced on MRI. Plan: 1. Stroke: MRI brain reveals acute right EMMA territory infarct. CTA head and neck done in June 2019 was significant for left MCA trifurcation branch occlusion. 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 - Given the patient has an acute infarct, we'll check CTA head and neck. - Check echo - . This patient has a recent infarct on MRI, we'll stop the liquids at this time, to reduce risk of hemorrhagic conversion. As this may have been an liquids failure, we will start patient on Xarelto in 2 days, to decrease risk of hemorrhagic conversion. - Continue aspirin 81 mg daily - Continue statin. - PT/OT/ST - DVT prophylaxis: Recommend SCD, patient to be started on Xarelto in 2 days. 2. Hypertension: - Recommend BP target of less than 220/120, to allow for permissive hypertension for the next 24 hours. Can forget normotension after that. - Patient states that she would like to be followed up at [facility], and it previously attempted to get an appointment there. I have contacted [facility], and abdomen process of assisting patient with obtaining outpatient appointment at that clinic. - Will continue to monitor neurologic status. Thank you for allowing me to take part in the care of this patient. Raúl Zuniga MD Neurology
[2019-08-17] MEDS ORDERED: ACETAMINOPHEN 325 MG TAB PO PRN (20:21)
[2019-08-17] MEDS ORDERED: TEMAZEPAM 15 MG CAP PO PRN (20:22)
[2019-08-17] MEDS ORDERED: oxyCODONE /ACETAMINOPHEN 5-325MG TAB PO PRN (20:22)
[2019-08-18] MEDS: NIFEdipine XL 30 MG TAB PO SCH (09:36)
[2019-08-18] MEDS: hydroCHLOROthiazide 12.5 MG CAP PO SCH (09:37)
[2019-08-18] MEDS: ASPIRIN EC 81 MG TAB PO SCH (09:37)
[2019-08-18] MEDS: ESCITALOPRAM 10 MG TAB PO SCH (09:37)
--- NOTE | 2019-08-18 15:17 | Cat Scan Report ---
NECK CT ANGIOGRAM 08/18/2019 HISTORY: Stroke FINDINGS: Contrast-enhanced CT angiographic images of the neck were obtained. In addition to the axia l images, sagittal and coronal reformatted images were obtained. In addition, 3 plane MIP reconstruct ions were produced. NASCET like criteria were used in this evaluation. There is no evidence of carotid bifurcation stenosis. There is a normal appearance to the carotid bif urcations, internal and external carotid arteries bilaterally. Vertebral artery contours are unremarkable. Visualized portions of the aortic arch are unremarkable. IMPRESSION: No evidence of significant abnormality. No evidence of carotid bifurcation stenosis. All CT scans at this location are performed using dose reduction to ALARA by means of automated expos ure control. Signer Name: Darvin Jennings MD Signed: 08/18/2019 3:12 PM Workstation Name: [id number]
--- NOTE | 2019-08-18 15:25 | Cat Scan Report ---
HEAD CT ANGIOGRAM 08/18/2019 HISTORY: Stroke FINDINGS: Contrast-enhanced CT angiographic images of the intracranial circulation were obtained. In addition to the axial images, sagittal and coronal reformatted images were obtained. In addition, 3 p milady MIP reconstructions were produced. There is no evidence of abnormality. Normal vascular contours are present at the level of skull base and [place]. There is no evidence of vessel occlusion, stenosis, or aneurysm. 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 Prominent p osterior to indicating arteries are also present bilaterally, also an anatomic variant. IMPRESSION: No significant abnormality. All CT scans at this location are performed using dose reduction to ALARA by means of automated expos ure control. Signer Name: Darvin Jennings MD Signed: 08/18/2019 3:21 PM Workstation Name: [id number]
--- NOTE | 2019-08-18 16:16 | Discharge Summary ---
Providers - Providers Date of Admission: 08/16/19 16:56 Date of discharge: 08/18/19 Attending physician: GRAZYNA ANDRADE 08/17/19 10:58 Consult to Physician [CONS] Routine Comment: Consulting Provider: THONY LOPEZ Physician Instructions: Reason For Exam: Left leg numbness, Primary care physician: RENATO GLORIA Hospitalization Condition: Fair Disposition: DC-01 TO HOME OR SELFCARE Exam - Constitutional Vitals: Temp Pulse Resp BP Pulse Ox 98.4 F 48 L 18 142/74 100 08/18/19 12:13 08/18/19 12:13 08/18/19 12:13 08/18/19 12:13 08/18/19 12:13 Plan Activity: advance as tolerated Diet: low fat, low salt Special Instructions: other (Start Xarelto sat 08/19/19) Plan of Treatment: 1.Follow up with PCP in 1 week. 2.Follow up with Neurology at [place], Dr. Grace on 08/31/19 as scheduled Follow up with: PRIMARY CARE, [Referring] - 7 Days Prescriptions: Rivaroxaban [Xarelto] 20 mg PO QDAY #30 tab
[2019-08-18 16:44] VITALS: BP 127/72
--- NOTE | 2019-08-18 16:45 | Progress Note ---
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 According the patient's clinical findings, the patient has had an acute ischemic stroke as is evidenced on MRI. Plan: 1. Stroke: MRI brain reveals acute right EMMA territory infarct. CTA head and neck done in June 2019 was significant for left MCA tri furcation branch occlusion. 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 - CTA head and neck: No significant stenosis. Notable for hypoplastic right A1. There is possibility that this may be occluded versus hypoplastic, as patient has new right EMMA territory infarct. - Check echo- pending - . This patient has a recent infarct on MRI, we'll stop the Eliquis at this time, to reduce risk of hemorrhagic conversion. As this may have been an Eliquis failure, we will start patient on Xarelto on 08/19/2019, to decrease risk of hemorrhagic conversion. - Continue aspirin 81 mg daily - Continue statin. - PT/OT/ST - DVT prophylaxis: Recommend SCD, patient to be started on Xarelto on 08/19/2019. 2. Hypertension: - Recommend BP target of normotension. - Patient states that she would like to be followed up at [place] [facility], and she previously attempted to get an appointment there. I have contacted [place] [facility], and patient now has an appointment with Dr. Cornelio Grace on 08/31/2019. - Will sign off, as I am not covering neurology service over the weekend. Recommend consult neurologist covering service over the weekend for further mark anthony [facility] monitoring and management. Thank you for allowing me to take part in the care of this patient. Raúl Zuniga MD Neurology Subjective Date of service: 08/18/19 Principal diagnosis: Stroke Interval history: No acute events overnight. Objective - Exam Narrative Exam: Patient is alert, awake, oriented x4, follows complex commands. PERRL, EOMI, VFF, no facial weakness noted, tongue midline, b/l intact to LT. No dysarthria or aphasia noted. RUE 4/5, LUE/LLE 5/5, RLE 4/5. Mildly decreased on LLE to LT. B/l intact to FTN and HTS. 2+ reflexes throughout. - Vital Sign Vital Signs - 12hr 08/18/19 08/18/19 08/18/19 07:47 08:52 12:13 Temperature 97.6 F 98.4 F Pulse Rate 55 L 60 48 L Respiratory 16 18 Rate Blood Pressure 134/78 Blood Pressure 142/74 [Right] O2 Sat by Pulse 100 100 Oximetry - General Apperance Constitutional: comfortable - EENT EENT: ATNC, PERRL, mucous membranes moist, hearing intact, vision intact - Respiratory Respiratory: lungs clear, normal breath sounds - Cardiovascular Cardiovascular: regular rate, normal S1, normal S2 Extremities: no clubbing, cyanosis, no inflammation - Gastrointestinal Gastrointestinal: normoactive bowel sounds, soft, non-tender - Integumentary Integumentary: normal - Musculoskeletal Musculoskeletal: no fluid collection - Psychiatric Psychiatric: mood/affect appropriate - Laboratory Findings CBC and BMP: 08/16/19 14:35 08/17/19 08:54 Abnormal Lab Findings: Abnormal Labs 08/16/19 08/16/19 08/16/19 14:08 14:35 14:35 MCHC 35 H Glucose 115 H POC Glucose 106 H Calcium 10.8 H Total Protein 8.6 H HDL Cholesterol 08/16/19 08/17/19 08/17/19 20:51 08:54 08:54 MCHC Glucose 103 H POC Glucose 131 H Calcium Total Protein HDL Cholesterol 67 H 08/17/19 22:01 MCHC Glucose POC Glucose 62 L Calcium Total Protein HDL Cholesterol
== END 2019-08-18 17:50 | disposition home or self-care (01) ==
LOC: ED 13:49 → 4A 16:56 → INTOOBSV 16:56
PROVIDERS: ADMIT Internal Medicine; ATTEND Internal Medicine
DX: I63.9 Cerebral infarction, unspecified (principal); I10 Essential (primary) hypertension; E11.9 Type 2 diabetes mellitus without complications; E78.5 Hyperlipidemia, unspecified; Z90.710 Acquired absence of both cervix and uterus; Z79.82 Long term (current) use of aspirin
CPT/HCPCS: 36415; 70450; 70496; 70498; 70551; 80048; 80053; 80061; 81001; 82962; 84484; 85025; 87116; 93005; 93010; 93880; 99284; A9270; G0378; Q9967